=== PATIENT | male | born 1975 | race Caucasian/White ===

== ENCOUNTER 2017-05-22 22:08 | Emergency (ER) | payer OTHER ==
[2017-05-22 22:18] VITALS: BP 126/85; PULSE 94; TEMP 97.8; BMI 28.7
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
== END 2017-05-23 01:00 | disposition home or self-care (01) ==
LOC: JER 22:08
DX: M51.27 Other intervertebral disc displacement, lumbosacral region (principal)
CPT/HCPCS: 70450-TC; 72131-TC; 99281-25; 99283-25

== ENCOUNTER 2017-06-05 23:15 | Observation (INO) | payer OTHER ==
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
[2017-06-06 01:52] LABS: BASO % 0.4 % (0-2.0); EOS % 1.2 % (0-4.5); HEMATOCRIT 52.2 % (35.4-49); HEMOGLOBIN 17.4 GM/dL (11.7-16.9); LYMPH % 10.1 % (8-40); MCHC 33.3 g/dl (32.0-35.9); MEAN CELL VOLUME 90.2 fl (80-96); MEAN PLT VOLUME 8.4 fl (7.5-11.1); MONO % 7.8 % (3.8-10.2); NEUT % 80.5 % (42.8-82.8); PLATELET COUNT 339 K/MM3 (134-434); RBC 5.79 M/mm3 (4.00-5.60); RDW 13.7 % (11.9-15.9); WHITE BLOOD COUNT 14.4 K/mm3 (4.0-10.0)
[2017-06-06] MEDS ORDERED: ONDANSETRON 4 MG/2 ML VIAL IVPUSH STA ×2 (02:07→03:52)
[2017-06-06] MEDS ORDERED: morphine CARPU-JECT 2 MG/1 ML DISP.SYRIN IVPUSH ONE ×2 (02:07→03:52)
[2017-06-06] MEDS ORDERED: ONDANSETRON 4 MG/2 ML VIAL ONE ×2 (02:10→04:00)
[2017-06-06] MEDS ORDERED: morphine SULFATE 4 MG/ML VIAL ONE (02:10)
[2017-06-06 02:13] LABS: INR 0.94 (0.82-1.09); PROTHROMBIN TIME (PATIENT) 10.6 SEC (9.98-11.88)
[2017-06-06 02:29] LABS: ANION GAP 4 (8-16); BILIRUBIN,TOTAL 0.5 mg/dL (0.2-1.0); BLOOD UREA NITROGEN 14 mg/dL (7-18); CALCIUM 8.1 mg/dL (8.5-10.1); CHLORIDE 104 mmol/L (98-107); CO2 32 mmol/L (21-32); CREATININE 1.3 mg/dL (0.7-1.3); GLUCOSE,RANDOM 97 mg/dL (74-106); SGPT/ALT 50 U/L (12-78); SODIUM 140 mmol/L (136-145); TOT PROT 8.3 g/dl (6.4-8.2)
[2017-06-06 02:32] LABS: ALK PHOS 76 U/L (45-117)
[2017-06-06 02:36] LABS: MAGNESIUM 1.9 mg/dL (1.8-2.4); POTASSIUM 4.6 mmol/L (3.5-5.1); SGOT/AST 42 U/L (15-37)
[2017-06-06] MEDS ORDERED: SODIUM CHLORIDE 1,000 ML IV STA (02:52)
[2017-06-06 03:21] LABS: URINE APPEARANCE CLEAR; URINE BILIRUBIN NEGATIVE (<2.0 mg/dL); URINE BLOOD NEGATIVE (NEGATIVE); URINE COLOR DKYELLOW; URINE GLUCOSE (UA) NEGATIVE (NEGATIVE); URINE KETONE NEGATIVE (NEGATIVE); URINE LEUK ESTERASE NEGATIVE (NEGATIVE); URINE NITRITE NEGATIVE (NEGATIVE)
[2017-06-06 03:22] LABS: URINE PROTEIN 1+ (NEGATIVE)
[2017-06-06 03:23] LABS: URINE HYALINE CAST 8 /lpf; URINE MUCUS MANY
[2017-06-06 03:53] LABS: METHADONE, UR NEGATIVE ng/ml (CUTOFF=300); PHENCYCLIDINE,URINE NEGATIVE ng/ml (CUTOFF=25); URINE AMPHETAMINES NEGATIVE ng/ml (CUTOFF=500); URINE BARBITURATES NEGATIVE ng/ml (CUTOFF=200); URINE BENZODIAZEPINES POSITIVE ng/ml (CUTOFF=200)
[2017-06-06 03:55] LABS: COCAINE, UR POSITIVE ng/ml (CUTOFF=300); OPIATES, URI POSITIVE ng/ml (CUTOFF=300)
[2017-06-06] MEDS ORDERED: MORPHINE SULFATE 10 MG/1 ML *VIAL ONE (03:59)
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
[2017-06-06] MEDS ORDERED: SODIUM CHLORIDE 1,000 ML IV SCH (06:00)
--- NOTE | 2017-06-06 06:18 | HP ---
CHIEF COMPLAINT: LLE extremity pain, syncope PCP: HISTORY OF PRESENT ILLNESS: 41 y/o M with PMH R varicocele (underwent three repairs: at ages [age]), throat nodules, three crushed vertebrae (dx 2004), unknown chest tumor, numerous athletic shoulder and knee repair surgeries, who presents to the ED c/ o b/l lower extremity pain and syncope over the past six months, worsened over the last three days. As per patient, six months ago, he developed tightness in his hamstrings, which was so severe that he was unable to walk up stairs. At this time, he had loss of sensation in his RLE. He followed up with a neurosurgeon, who recommended MRI, however it was never done. Pt states that ever since this instance, he has continued to have loss of sensation in his RLE and weakness in his LLE. He was seen in [facility] ED approximately two weeks ago with similar complaints, and was dx with bulging discs and sent home with neurosurgical follow up for MRI that had not been completed yet. Pt is returning today c/o worsening sx over the past three days, including severe, tightening LLE pain, numbness in his RUE and RLE, as well as increased sensation of warmth on his R side. During this time, he also endorses swollen ankle and hand joints, somnolence, increased urinary frequency and loss of erection. He also has had a diffuse erythematous, pruritic full-body rash, which is a/w hot flashes. Over the last day, pt has also had 10-12 episodes of NBNB emesis, and syncopal episodes where he is sitting down and "just goes limp " as per his . These last for 2-3 seconds and are not a/w urinary or bowel incontinence, or change in eye movement. However, despite his hx, states that he has been able to lift weights. Pt denies recent trauma, accidents, WILSON, fever , chills, SOB, chest pain or pressure, or changes in bowel function. He has had no recent travel hx, exposures, and denies recent drug ingestions. ER course was notable for: (1) Tachy 130HR (2) Leukocytosis 14.4 (3) Benadryl 25mg x 1 (4) Morphine 8mg IVP, 6mg IVP (5) Zofran 4mg x 2 Recent Travel: none PAST MEDICAL HISTORY: as above PAST SURGICAL HISTORY: as above, had had ?resection of throat nodules, R knee arthroscopy, two elbow surgeries, 2 shoulder repairs - one for a bone spur Social History: worked as a research professional for a long time. Smoking: since 20's has smoked socially "a few cigarettes" Alcohol: social drinker Drugs: denies current use. states he used cocaine in college Family History: mother- breast CA, father- prostate CA Allergies Baclofen- angioedema Penicillin- dx in childhood, does not know rxn it causes HOME MEDICATIONS: -States that he only takes unisom to help him sleep at night. No other meds REVIEW OF SYSTEMS CONSTITUTIONAL: +loss of appetite Absent: fever, chills, diaphoresis, generalized weakness, malaise, loss of appetite, weight change HEENT: Absent: rhinorrhea, nasal congestion, throat pain, throat swelling, difficulty swallowing, mouth swelling, ear pain, eye pain, visual changes CARDIOVASCULAR: Absent: chest pain, syncope, palpitations, irregular heart rate, lightheadedness , peripheral edema RESPIRATORY: Absent: cough, shortness of breath, dyspnea with exertion, orthopnea, wheezing, stridor, hemoptysis GASTROINTESTINAL: Absent: abdominal pain, abdominal distension, nausea, vomiting, diarrhea, constipation, melena, hematochezia GENITOURINARY: Absent: dysuria, frequency, urgency, hesitancy, hematuria, flank pain, genital pain MUSCULOSKELETAL: +LLE weakness, pain, +RLE increased temp, loss of sensation Absent: myalgia, arthralgia, joint swelling, back pain, neck pain SKIN: +diffuse blanching maculopapular rash/"flushing" Absent: rash, itching, pallor HEMATOLOGIC/IMMUNOLOGIC: Absent: easy bleeding, easy bruising, lymphadenopathy, frequent infections ENDOCRINE: Absent: unexplained weight gain, unexplained weight loss, heat intolerance, cold intolerance NEUROLOGIC: + Absent: headache, focal weakness or paresthesias, dizziness, unsteady gait, seizure, mental status changes, bladder or bowel incontinence PSYCHIATRIC: Absent: anxiety, depression, suicidal or homicidal ideation, hallucinations. PHYSICAL EXAMINATION Vital Signs - 24 hr 06/06/17 06/06/17 00:58 05:24 Temperature 97.7 F Pulse Rate 130 H Pulse Rate [ 104 H Apical] Respiratory 14 18 Rate Blood Pressure 127/104 Blood Pressure 131/82 [Left Arm] O2 Sat by Pulse 95 99 Oximetry (%) GENERAL: Extremely anxious, speaking fast. Awake, alert, and fully oriented, in no acute distress. Intermittently coughing HEAD: Normal with no signs of trauma. + flushing EYES: Pupils equal, round and reactive to light, extraocular movements intact, sclera anicteric, conjunctiva clear. No lid lag. EARS, NOSE, THROAT: Ears normal, nares patent, oropharynx clear without exudates. Dry mucous membranes NECK: Normal range of motion, supple LUNGS: Breath sounds equal, clear to auscultation bilaterally. No wheezes, and no crackles. No accessory muscle use. CHEST: +flushing/maculopapular blanchable rash HEART: tachycardic rate and rhythm, normal S1 and S2 without murmur, rub or gallop. ABDOMEN: Soft, nontender, not distended, normoactive bowel sounds, no guarding, no rebound, no masses. No hepatomegaly or splenomegaly. MUSCULOSKELETAL: Normal range of motion at all joints. No bony deformities or tenderness. +Mild TTP lumbar spine ~L3/L4 UPPER EXTREMITIES: 2+ radial pulses, warm, well-perfused. No cyanosis. No clubbing. No peripheral edema. LOWER EXTREMITIES: 2+ lower extremity pulses, warm, well-perfused. No calf tenderness. No peripheral edema. NEUROLOGICAL: Cranial nerves II-XII intact. Normal speech. DTRs 2+ intact - bicep, tricep, patellar. Motor strength 4/5 in upper and lower extremities. Mild loss of sensation RUE, RLE. PSYCHIATRIC: Cooperative. Anxious, pressured speech SKIN: +flushing/maculopapular blanchable rash, dry Laboratory Results - last 24 hr 06/06/17 06/06/17 06/06/17 01:30 01:30 01:30 WBC 14.4 H RBC 5.79 H Hgb 17.4 H Hct 52.2 H MCV 90.2 MCH 30.0 MCHC 33.3 RDW 13.7 Plt Count 339 MPV 8.4 Neutrophils % 80.5 Lymphocytes % 10.1 Monocytes % 7.8 Eosinophils % 1.2 Basophils % 0.4 PT with INR INR D-Dimer 569 H Sodium 140 Potassium 4.6 Chloride 104 Carbon Dioxide 32 Anion Gap 4 L BUN 14 Creatinine 1.3 Creat Clearance w eGFR > 60 Random Glucose 97 Lactic Acid Calcium 8.1 L Magnesium 1.9 Total Bilirubin 0.5 AST 42 H ALT 50 Alkaline Phosphatase 76 Creatine Kinase 948 H Creatine Kinase Index 1.1 CK-MB (CK-2) 11.348 H Troponin I < 0.02 B-Natriuretic Peptide Total Protein 8.3 H Albumin 4.0 Lipase Ur Leukocyte Esterase 06/06/17 06/06/17 03:11 03:11 WBC TSH Resin T3 Uptake Urine Color Dkyellow Urine Appearance Clear Urine pH 5.0 Ur Specific [place] 1.023 Urine Protein 1+ H Urine Glucose (UA) Negative Urine Ketones Negative Urine Blood Negative Urine Nitrite Negative Urine Bilirubin Negative Urine Urobilinogen 2.0 Ur Leukocyte Esterase Negative Urine WBC (Auto) 1 Urine RBC (Auto) 1 Hyaline Casts 8 Urine Mucus Many Opiates Screen Positive Methadone Screen Negative Barbiturate Screen Negative Phencyclidine Screen Negative Ur Amphetamines Screen Negative MDMA (Ecstasy) Screen Negative Benzodiazepines Screen Positive Cocaine Screen Positive U Marijuana (THC) Screen Negative TESTS -EKG: sinus tachycardia, however NSR -CT Head non-con: WNL, no hemorrhage or infarct -CTA: no PE, no dissection, without effusion or fx -CTA AP: prior gonadal vein or arterial embolization -CTA lower ext: nonspecific b/l gluteal SQ edema ASSESSMENT/PLAN: 41 y/o M with PMH R varicocele (underwent three repairs: at ages [age]), throat nodules, three crushed vertebrae (dx 2004), unknown chest tumor, numerous athletic shoulder and knee repair surgeries, who presents to the ED c/ o b/l lower extremity pain and syncope over the past six months, worsened over the last three days. Pt admitted to tele-obs for lower extremity weakness, polysubstance withdrawal. #LLE weakness, RLE numbness r/o spinal lesion, cord compression, herniated disc -Received morphine 8 mg IVP, 2mg IVP in ED -Without complaint of pain during exam -F/u MRI w/o contrast- cervical, thoracic, lumbar regions -F/u B12, folate level, Mg -Elevated CK level likely 2/2 weight lifting -TSH WNL -Neuro consult- Dr. Campos -Neurosurg consult- Dr. Roy #Syncopal episodes, possible absence seizures -Neuro consult - Dr. Campos -[facility] without abnormalities -Will do stroke work up in case- -F/u Carotid doppler sono -F/u ECHO #Polysubstance withdrawal -Pt not admitting to recent drug use -May explain pt's anxiety, tachycardia -Telemetry monitoring -However recent utox+ for cocaine -Recommend detox, withdrawal protocol -Would reassess #Nausea, vomiting possibly 2/2 gastroenteritis -IVF for hydration -NPO for now -Zofran 4mg q6h PRN #Diffuse maculopapular rash with pruritis -May be allergic rxn, continue to monitor for changes -F/u RPR -Benadryl as needed for sx #Increased H/H likely 2/2 dehydration -Will hydrate with IV NS 125 cc/hr #Hypocalcemia -Corrected Ca 8.1 -Will correct with Ca gluconate 1g IV -Continue to follow level #F/E/N IV NS 125 cc/hr Serial lytes NPO for now - will watch pt for N/V, and if additional tests needed #PPX DVT: SCD's #Dispo tele -obs Visit type - Emergency Visit Emergency Visit: Yes ED Registration Date: 06/06/17 Care time: The patient presented to the Emergency Department on the above date and was hospitalized for further evaluation of their emergent condition. - New Patient This patient is new to me today: Yes Date on this admission: 06/06/17 - Critical Care Critical Care patient: No Hospitalist Screening - Colonoscopy Questionnaire Colonoscopy Questionnaire: Colonoscopy Questionnaire - Patient: 50 - 75 years old and never had a screening colonoscopy: Unknown History of colon or rectal polyps, or CA: Unknown History of IBD, Crohn's disease or UC: Unknown History of abdominal radiation therapy as a child: Unknown - Relative: 1 with colon or rectal CA, or polyps at age 60 or younger: Unknown Colon or rectal CA diagnosed at age 45 or younger: Unknown Multiple relatives with colon or rectal CA: Unknown - Outcome: Screening Result: Negative Screen
[2017-06-06] MEDS ORDERED: ONDANSETRON 4 MG/2 ML VIAL IVPUSH PRN (06:42)
[2017-06-06] MEDS ORDERED: CALCIUM GLUCONATE 10% - 1,000 MG/10 ML VIAL IVPUSH ONE (06:45)
[2017-06-06 08:30] VITALS: TEMP 98.1
[2017-06-06 08:46] LABS: MAGNESIUM 2.2 mg/dL (1.8-2.4)
[2017-06-06 09:50] LABS: BASO % 1.2 % (0-2.0); EOS % 2.9 % (0-4.5); HEMATOCRIT 47.7 % (35.4-49); HEMOGLOBIN 15.8 GM/dL (11.7-16.9); MCH 30.3 pg (25.7-33.7); MCHC 33.2 g/dl (32.0-35.9); MEAN CELL VOLUME 91.2 fl (80-96); MEAN PLT VOLUME 8.4 fl (7.5-11.1); MONO % 12.6 % (3.8-10.2); NEUT % 64.3 % (42.8-82.8); PLATELET COUNT 309 K/MM3 (134-434); RBC 5.23 M/mm3 (4.00-5.60); RDW 13.8 % (11.9-15.9); WHITE BLOOD COUNT 9.9 K/mm3 (4.0-10.0)
[2017-06-06 12:12] LABS: ANION GAP 4 (8-16); BLOOD UREA NITROGEN 13 mg/dL (7-18); CALCIUM 8.1 mg/dL (8.5-10.1); CHLORIDE 105 mmol/L (98-107); CO2 32 mmol/L (21-32); CREATININE 1.3 mg/dL (0.7-1.3); GLUCOSE,RANDOM 65 mg/dL (74-106); POTASSIUM 4.4 mmol/L (3.5-5.1); SODIUM 141 mmol/L (136-145)
--- NOTE | 2017-06-06 13:21 | EKG ---
Test Reason : Blood Pressure : / mmHG Vent. Rate : 112 BPM Atrial Rate : 112 BPM P-R Int : 134 ms QRS Dur : 098 ms QT Int : 310 ms P-R-T Axes : 053 037 025 degrees QTc Int : 423 ms SINUS TACHYCARDIA OTHERWISE NORMAL ECG NO PREVIOUS ECGS AVAILABLE Confirmed by ARIE AUGUSTE MD ([id number]) on 06/06/2017 1:20:32 PM Referred By: Confirmed By:ARIE AUGUSTE MD
[2017-06-06 13:39] VITALS: BMI 28.8
[2017-06-06 13:58] VITALS: BP 134/76; PULSE 96
[2017-06-06] MEDS ORDERED: KETOROLAC TROMETHAMINE 10 MG TABLET PO PRN (14:01)
[2017-06-06] MEDS ORDERED: ACETAMINOPHEN 325 MG TABLET (FP) PO PRN ×2 (14:01→14:33)
[2017-06-06] MEDS ORDERED: KETOROLAC TROMETHAMINE 30 MG/1 ML VIAL IVPUSH PRN (14:44)
--- NOTE | 2017-06-06 15:14 | PN ---
Physical Exam: SUBJECTIVE: Patient seen and examined OBJECTIVE: Vital Signs Period Temp Pulse Resp BP Sys/Abdalla Pulse Ox Last 24 Hr 97.7 F-98.1 F 90-130 12-18 127-134/76-104 95-100 GENERAL: The patient is awake, alert, and fully oriented, in no acute distress. HEAD: Normal with no signs of trauma. EYES: PERRL, extraocular movements intact, sclera anicteric, conjunctiva clear. No ptosis. NECK: Trachea midline, full range of motion, supple. LUNGS: Breath sounds equal, clear to auscultation bilaterally, no wheezes, no crackles, no accessory muscle use. HEART: Regular rate and rhythm, S1, S2 without murmur, rub or gallop. ABDOMEN: Soft, nontender, nondistended, normoactive bowel sounds, no guarding, no rebound, no hepatosplenomegaly, no masses. EXTREMITIES: 2+ pulses, warm, well-perfused, no edema. NEUROLOGICAL: Cranial nerves II through X grossly intact. Normal speech, gait not observed. Strength 5/5 in all 4 extremities. Sensation intact in all dermatomes on the left. Numbness with only pressure felt on the right. PSYCH: Normal mood, normal affect. SKIN: Warm, dry. There is flushing of the face and upper chest area. There is a maculopapular rash over the upper chest area. The reddening of the sin blanches , but the maculopapular regions do not. Laboratory Results - last 24 hr 06/06/17 06/06/17 06/06/17 01:30 01:30 01:30 WBC 14.4 H RBC 5.79 H Hgb 17.4 H Hct 52.2 H MCV 90.2 MCH 30.0 MCHC 33.3 RDW 13.7 Plt Count 339 MPV 8.4 Neutrophils % 80.5 Lymphocytes % 10.1 Monocytes % 7.8 Eosinophils % 1.2 Basophils % 0.4 PT with INR INR D-Dimer 569 H Sodium 140 Potassium 4.6 Chloride 104 Carbon Dioxide 32 Anion Gap 4 L BUN 14 Creatinine 1.3 Creat Clearance w eGFR > 60 Random Glucose 97 Lactic Acid Calcium 8.1 L Magnesium 1.9 Total Bilirubin 0.5 AST 42 H ALT 50 Alkaline Phosphatase 76 Creatine Kinase 948 H Creatine Kinase Index 1.1 CK-MB (CK-2) 11.348 H Troponin I < 0.02 B-Natriuretic Peptide Total Protein 8.3 H Albumin 4.0 Lipase Vitamin B12 Serum Folate TSH Resin T3 Uptake Urine Color Urine Appearance Urine pH Ur Specific [place] Urine Protein Urine Glucose (UA) Urine Ketones Urine Blood Urine Nitrite Urine Bilirubin Urine Urobilinogen Ur Leukocyte Esterase Urine WBC (Auto) Urine RBC (Auto) Hyaline Casts Urine Mucus Opiates Screen Methadone Screen Barbiturate Screen Phencyclidine Screen Ur Amphetamines Screen MDMA (Ecstasy) Screen Benzodiazepines Screen Cocaine Screen U Marijuana (THC) Screen 06/06/17 06/06/17 06/06/17 01:30 01:30 01:30 WBC RBC Hgb Hct MCV MCH MCHC RDW Plt Count MPV Neutrophils % Lymphocytes % Monocytes % Eosinophils % Basophils % PT with INR 10.60 INR 0.94 D-Dimer Sodium Potassium Chloride Carbon Dioxide Anion Gap BUN Creatinine Creat Clearance w eGFR Random Glucose Lactic Acid 1.1 Calcium Magnesium Total Bilirubin AST ALT Alkaline Phosphatase Creatine Kinase Creatine Kinase Index CK-MB (CK-2) Troponin I B-Natriuretic Peptide Total Protein Albumin Lipase 91 Vitamin B12 Serum Folate TSH Resin T3 Uptake Urine Color Urine Appearance Urine pH Ur Specific [place] Urine Protein Urine Glucose (UA) Urine Ketones Urine Blood Urine Nitrite Urine Bilirubin Urine Urobilinogen Ur Leukocyte Esterase Urine WBC (Auto) Urine RBC (Auto) Hyaline Casts Urine Mucus Opiates Screen Methadone Screen Barbiturate Screen Phencyclidine Screen Ur Amphetamines Screen MDMA (Ecstasy) Screen Benzodiazepines Screen Cocaine Screen U Marijuana (THC) Screen 06/06/17 06/06/17 06/06/17 01:30 02:30 02:30 WBC RBC Hgb Hct MCV MCH MCHC RDW Plt Count MPV Neutrophils % Lymphocytes % Monocytes % Eosinophils % Basophils % PT with INR INR D-Dimer Sodium Potassium Chloride Carbon Dioxide Anion Gap BUN Creatinine Creat Clearance w eGFR Random Glucose Lactic Acid Calcium Magnesium Total Bilirubin AST ALT Alkaline Phosphatase Creatine Kinase Creatine Kinase Index CK-MB (CK-2) Troponin I B-Natriuretic Peptide 24.07 Total Protein Albumin Lipase Vitamin B12 Serum Folate TSH 2.82 Resin T3 Uptake 33.0 Urine Color Urine Appearance Urine pH Ur Specific [place] Urine Protein Urine Glucose (UA) Urine Ketones Urine Blood Urine Nitrite Urine Bilirubin Urine Urobilinogen Ur Leukocyte Esterase Urine WBC (Auto) Urine RBC (Auto) Hyaline Casts Urine Mucus Opiates Screen Methadone Screen Barbiturate Screen Phencyclidine Screen Ur Amphetamines Screen MDMA (Ecstasy) Screen Benzodiazepines Screen Cocaine Screen U Marijuana (THC) Screen 06/06/17 06/06/17 06/06/17 03:11 03:11 07:59 WBC RBC Hgb Hct MCV MCH MCHC RDW Plt Count MPV Neutrophils % Lymphocytes % Monocytes % Eosinophils % Basophils % PT with INR INR D-Dimer Sodium Potassium Chloride Carbon Dioxide Anion Gap BUN Creatinine Creat Clearance w eGFR Random Glucose Lactic Acid Calcium Magnesium 2.2 Total Bilirubin AST ALT Alkaline Phosphatase Creatine Kinase Creatine Kinase Index CK-MB (CK-2) Troponin I < 0.02 B-Natriuretic Peptide Total Protein Albumin Lipase Vitamin B12 850 Serum Folate 12 TSH Resin T3 Uptake Urine Color Dkyellow Urine Appearance Clear Urine pH 5.0 Ur Specific [place] 1.023 Urine Protein 1+ H Urine Glucose (UA) Negative Urine Ketones Negative Urine Blood Negative Urine Nitrite Negative Urine Bilirubin Negative Urine Urobilinogen 2.0 Ur Leukocyte Esterase Negative Urine WBC (Auto) 1 Urine RBC (Auto) 1 Hyaline Casts 8 Urine Mucus Many Opiates Screen Positive Methadone Screen Negative Barbiturate Screen Negative Phencyclidine Screen Negative Ur Amphetamines Screen Negative MDMA (Ecstasy) Screen Negative Benzodiazepines Screen Positive Cocaine Screen Positive U Marijuana (THC) Screen Negative 06/06/17 06/06/17 06/06/17 07:59 07:59 11:45 WBC 9.9 D RBC 5.23 Hgb 15.8 Hct 47.7 MCV 91.2 MCH 30.3 MCHC 33.2 RDW 13.8 Plt Count 309 MPV 8.4 Neutrophils % 64.3 D Lymphocytes % 19.0 D Monocytes % 12.6 H Eosinophils % 2.9 D Basophils % 1.2 PT with INR INR D-Dimer Sodium 141 Potassium 4.4 Chloride 105 Carbon Dioxide 32 Anion Gap 4 L BUN 13 Creatinine 1.3 Creat Clearance w eGFR Random Glucose 65 L D Lactic Acid Calcium 8.1 L Magnesium Total Bilirubin AST ALT Alkaline Phosphatase Creatine Kinase 1632 H Creatine Kinase Index 1.0 CK-MB (CK-2) 16.909 H Troponin I < 0.02 B-Natriuretic Peptide Total Protein Albumin Lipase Vitamin B12 Serum Folate TSH Resin T3 Uptake Urine Color Urine Appearance Urine pH Ur Specific [place] Urine Protein Urine Glucose (UA) Urine Ketones Urine Blood Urine Nitrite Urine Bilirubin Urine Urobilinogen Ur Leukocyte Esterase Urine WBC (Auto) Urine RBC (Auto) Hyaline Casts Urine Mucus Opiates Screen Methadone Screen Barbiturate Screen Phencyclidine Screen Ur Amphetamines Screen MDMA (Ecstasy) Screen Benzodiazepines Screen Cocaine Screen U Marijuana (THC) Screen Active Medications Generic Name Dose Route Start Last Admin Trade Name Freq PRN Reason Stop Dose Admin Acetaminophen 650 mg 06/06/17 14:33 Tylenol - PO Q6H PRN PAIN LEVEL 1-5 Sodium Chloride 1,000 mls @ 125 mls/hr 06/06/17 06:00 06/06/17 06:43 Normal Saline - IV 125 mls/hr ASDIR DANNIE Administration Ketorolac Tromethamine 30 mg 06/06/17 14:44 Toradol Injection - IVPUSH 06/11/17 14:43 Q8H PRN PAIN LEVEL 6-10 Ondansetron HCl 4 mg 06/06/17 06:42 Zofran Injection IVPUSH Q6H PRN NAUSEA AND/OR VOMITING ASSESSMENT/PLAN: The patient is a 41 y/o M with PMH throat nodules, three crushed vertebrae (dx 2004), unknown chest tumor, numerous athletic shoulder and knee repair surgeries admitted to tele-obs for workup of lower extremity weakness, numbness and pain. #LLE weakness, Right sided numbness r/o spinal lesion, cord compression, herniated disc -Received morphine 8 mg IVP, 2mg IVP in ED -strength 5/5 in all extremities -F/u B12, folate level, Mg -Elevated CK level likely 2/2 weight lifting -TSH WNL -Neuro consult -neurosurg consult #Syncopal episodes, possible absence seizures -Neuro consult - Dr. Campos -CT Head WNL -F/u Carotid doppler sono -F/u ECHO #possible Polysubstance withdrawal -patient continues to deny recent drug use -as per patient, #Diffuse maculopapular rash with pruritis -possibly allergic, though refractory to benadryl -F/u RPR #Polycythemia likely 2/2 dehydration -NS @ 125 #Hypocalcemia -Corrected Ca 8.1 -Will correct with Ca gluconate 1g IV -Rpt Ca unchanged; will rpt tomorrow. #Nausea, vomiting possibly 2/2 gastroenteritis- resolved -IVF for hydration -Zofran 4mg q6h PRN #F/E/N -NS@125 -monitor lytes -regular diet #PPX -SCD's #Dispo -admit to tele-obs
--- NOTE | 2017-06-06 17:28 | PN ---
Teaching Attending Note Name of Resident: Bruce Villanueva ATTENDING PHYSICIAN STATEMENT I saw and evaluated the patient. I reviewed the resident's note and discussed the case with the resident. I agree with the resident's findings and plan as documented. SUBJECTIVE: patient complains of leg weakness. OBJECTIVE: Vital Signs Period Temp Pulse Resp BP Sys/Abdalla Pulse Ox Last 24 Hr 97.7 F-98.1 F 90-130 12-18 127-134/76-104 95-100 HEART: S1S2, RRR LUNGS: Clear ABDOMEN: Soft, non-tender, non-distended, normal BS EXTREMITIES: No edema Laboratory Results - last 24 hr 06/06/17 06/06/17 06/06/17 01:30 01:30 01:30 WBC 14.4 H RBC 5.79 H Hgb 17.4 H Hct 52.2 H MCV 90.2 MCH 30.0 MCHC 33.3 RDW 13.7 Plt Count 339 MPV 8.4 Neutrophils % 80.5 Lymphocytes % 10.1 Monocytes % 7.8 Eosinophils % 1.2 Basophils % 0.4 PT with INR INR D-Dimer 569 H Sodium 140 Potassium 4.6 Chloride 104 Carbon Dioxide 32 Anion Gap 4 L BUN 14 Creatinine 1.3 Creat Clearance w eGFR > 60 Random Glucose 97 Lactic Acid Calcium 8.1 L Magnesium 1.9 Total Bilirubin 0.5 AST 42 H ALT 50 Alkaline Phosphatase 76 Creatine Kinase 948 H Creatine Kinase Index 1.1 CK-MB (CK-2) 11.348 H Troponin I < 0.02 B-Natriuretic Peptide Total Protein 8.3 H Albumin 4.0 Lipase Vitamin B12 Serum Folate TSH Resin T3 Uptake Urine Color Urine Appearance Urine pH Ur Specific [place] Urine Protein Urine Glucose (UA) Urine Ketones Urine Blood Urine Nitrite Urine Bilirubin Urine Urobilinogen Ur Leukocyte Esterase Urine WBC (Auto) Urine RBC (Auto) Hyaline Casts Urine Mucus Opiates Screen Methadone Screen Barbiturate Screen Phencyclidine Screen Ur Amphetamines Screen MDMA (Ecstasy) Screen Benzodiazepines Screen Cocaine Screen U Marijuana (THC) Screen 06/06/17 06/06/17 06/06/17 01:30 01:30 01:30 WBC RBC Hgb Hct MCV MCH MCHC RDW Plt Count MPV Neutrophils % Lymphocytes % Monocytes % Eosinophils % Basophils % PT with INR 10.60 INR 0.94 D-Dimer Sodium Potassium Chloride Carbon Dioxide Anion Gap BUN Creatinine Creat Clearance w eGFR Random Glucose Lactic Acid 1.1 Calcium Magnesium Total Bilirubin AST ALT Alkaline Phosphatase Creatine Kinase Creatine Kinase Index CK-MB (CK-2) Troponin I B-Natriuretic Peptide Total Protein Albumin Lipase 91 Vitamin B12 Serum Folate TSH Resin T3 Uptake Urine Color Urine Appearance Urine pH Ur Specific [place] Urine Protein Urine Glucose (UA) Urine Ketones Urine Blood Urine Nitrite Urine Bilirubin Urine Urobilinogen Ur Leukocyte Esterase Urine WBC (Auto) Urine RBC (Auto) Hyaline Casts Urine Mucus Opiates Screen Methadone Screen Barbiturate Screen Phencyclidine Screen Ur Amphetamines Screen MDMA (Ecstasy) Screen Benzodiazepines Screen Cocaine Screen U Marijuana (THC) Screen 06/06/17 06/06/17 06/06/17 01:30 02:30 02:30 WBC RBC Hgb Hct MCV MCH MCHC RDW Plt Count MPV Neutrophils % Lymphocytes % Monocytes % Eosinophils % Basophils % PT with INR INR D-Dimer Sodium Potassium Chloride Carbon Dioxide Anion Gap BUN Creatinine Creat Clearance w eGFR Random Glucose Lactic Acid Calcium Magnesium Total Bilirubin AST ALT Alkaline Phosphatase Creatine Kinase Creatine Kinase Index CK-MB (CK-2) Troponin I B-Natriuretic Peptide 24.07 Total Protein Albumin Lipase Vitamin B12 Serum Folate TSH 2.82 Resin T3 Uptake 33.0 Urine Color Urine Appearance Urine pH Ur Specific [place] Urine Protein Urine Glucose (UA) Urine Ketones Urine Blood Urine Nitrite Urine Bilirubin Urine Urobilinogen Ur Leukocyte Esterase Urine WBC (Auto) Urine RBC (Auto) Hyaline Casts Urine Mucus Opiates Screen Methadone Screen Barbiturate Screen Phencyclidine Screen Ur Amphetamines Screen MDMA (Ecstasy) Screen Benzodiazepines Screen Cocaine Screen U Marijuana (THC) Screen 06/06/17 06/06/17 06/06/17 03:11 03:11 07:59 WBC RBC Hgb Hct MCV MCH MCHC RDW Plt Count MPV Neutrophils % Lymphocytes % Monocytes % Eosinophils % Basophils % PT with INR INR D-Dimer Sodium Potassium Chloride Carbon Dioxide Anion Gap BUN Creatinine Creat Clearance w eGFR Random Glucose Lactic Acid Calcium Magnesium 2.2 Total Bilirubin AST ALT Alkaline Phosphatase Creatine Kinase Creatine Kinase Index CK-MB (CK-2) Troponin I < 0.02 B-Natriuretic Peptide Total Protein Albumin Lipase Vitamin B12 850 Serum Folate 12 TSH Resin T3 Uptake Urine Color Dkyellow Urine Appearance Clear Urine pH 5.0 Ur Specific [place] 1.023 Urine Protein 1+ H Urine Glucose (UA) Negative Urine Ketones Negative Urine Blood Negative Urine Nitrite Negative Urine Bilirubin Negative Urine Urobilinogen 2.0 Ur Leukocyte Esterase Negative Urine WBC (Auto) 1 Urine RBC (Auto) 1 Hyaline Casts 8 Urine Mucus Many Opiates Screen Positive Methadone Screen Negative Barbiturate Screen Negative Phencyclidine Screen Negative Ur Amphetamines Screen Negative MDMA (Ecstasy) Screen Negative Benzodiazepines Screen Positive Cocaine Screen Positive U Marijuana (THC) Screen Negative 06/06/17 06/06/17 06/06/17 07:59 07:59 11:45 WBC 9.9 D RBC 5.23 Hgb 15.8 Hct 47.7 MCV 91.2 MCH 30.3 MCHC 33.2 RDW 13.8 Plt Count 309 MPV 8.4 Neutrophils % 64.3 D Lymphocytes % 19.0 D Monocytes % 12.6 H Eosinophils % 2.9 D Basophils % 1.2 PT with INR INR D-Dimer Sodium 141 Potassium 4.4 Chloride 105 Carbon Dioxide 32 Anion Gap 4 L BUN 13 Creatinine 1.3 Creat Clearance w eGFR Random Glucose 65 L D Lactic Acid Calcium 8.1 L Magnesium Total Bilirubin AST ALT Alkaline Phosphatase Creatine Kinase 1632 H Creatine Kinase Index 1.0 CK-MB (CK-2) 16.909 H Troponin I < 0.02 B-Natriuretic Peptide Total Protein Albumin Lipase Vitamin B12 Serum Folate TSH Resin T3 Uptake Urine Color Urine Appearance Urine pH Ur Specific [place] Urine Protein Urine Glucose (UA) Urine Ketones Urine Blood Urine Nitrite Urine Bilirubin Urine Urobilinogen Ur Leukocyte Esterase Urine WBC (Auto) Urine RBC (Auto) Hyaline Casts Urine Mucus Opiates Screen Methadone Screen Barbiturate Screen Phencyclidine Screen Ur Amphetamines Screen MDMA (Ecstasy) Screen Benzodiazepines Screen Cocaine Screen U Marijuana (THC) Screen Current Medications Generic Name Dose Route Start Last Admin Trade Name Freq PRN Reason Stop Dose Admin Acetaminophen 650 mg 06/06/17 14:33 Tylenol - PO Q6H PRN PAIN LEVEL 1-5 Sodium Chloride 1,000 mls @ 125 mls/hr 06/06/17 06:00 06/06/17 06:43 Normal Saline - IV 125 mls/hr ASDIR DANNIE Administration Ketorolac Tromethamine 30 mg 06/06/17 14:44 06/06/17 15:18 Toradol Injection - IVPUSH 06/11/17 14:43 30 mg Q8H PRN Administration PAIN LEVEL 6-10 Ondansetron HCl 4 mg 04/04/18 06:42 Zofran Injection IVPUSH Q6H PRN NAUSEA AND/OR VOMITING ASSESSMENT AND PLAN: This is a 41 year old man with a history of varicocele, throat nodules, vertebral fractures, chest tumor, who presented to the ED with bilateral leg pain and syncope. 1. Bilateral leg pain, left leg weakness, right leg numbness - MRI of cervical, thoracic, lumbar spine ordered - B12, folate, TSH normal - Patient reports history of vertebral fractures - not seen on CT 05/22 which showed multilevel degenerative disc disease with central canal stenosis - Neurology, neurosurgery consults 2. Syncope - Carotid dopplers, echocardiogram ordered 3. Polysubstance abuse - Denies recent drug use - urine drug screen positive for opiates, benzodiazepines, cocaine 4. Rhabdomyolysis - Continue IV fluid - Monitor CK 5. Hypocalcemia - Continue to supplement calcium 6. Maculopapular rash - RPR negative
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
== END 2017-06-06 17:32 | disposition left against medical advice (07) ==
LOC: JER 23:15 → JERBED 06-06 04:11 → UNDOADMOB 06-06 04:11 → JERBED 06-06 04:11 → INTOOBSV 06-06 04:11 → UNDOADMIN 06-06 04:18 → JERBED 06-06 04:18 → J4W 06-06 07:31
PROVIDERS: ADMIT Internal Medicine; ATTEND Internal Medicine
PROC: 3E033NZ Introduction of Analgesics, Hypnotics, Sedatives into Peripheral Vein, Percutaneous Approach (ICD-10-PCS; principal; 2017-06-06)
PROC: 3E0333Z Introduction of Anti-inflammatory into Peripheral Vein, Percutaneous Approach (ICD-10-PCS; 2017-06-06)
PROC: 3E033GC Introduction of Other Therapeutic Substance into Peripheral Vein, Percutaneous Approach (ICD-10-PCS; 2017-06-06)
PROC: 3E0337Z Introduction of Electrolytic and Water Balance Substance into Peripheral Vein, Percutaneous Approach (ICD-10-PCS; 2017-06-06)
DX: M62.81 Muscle weakness (generalized) (principal); R20.0 Anesthesia of skin; F19.10 Other psychoactive substance abuse, uncomplicated; R55 Syncope and collapse; M51.26 Other intervertebral disc displacement, lumbar region; M54.5 Low back pain; R00.0 Tachycardia, unspecified; R11.2 Nausea with vomiting, unspecified; R21 Rash and other nonspecific skin eruption; L29.9 Pruritus, unspecified; L27.0 Generalized skin eruption due to drugs and medicaments taken internally; E83.51 Hypocalcemia; R71.8 Other abnormality of red blood cells; M62.82 Rhabdomyolysis
CPT/HCPCS: 36415; 70450-TC; 71045-TC-FY; 71275-TC; 75635-TC; 80048; 80053; 80307; 81003; 81015; 82533; 82550; 82553; 82607; 82746; 83605; 83690; 83735; 83880; 84436; 84443; 84479; 84484; 85025; 85379; 85610; 86593; 87040; 87086; 93005; 93010; 93306-TC; 93880-TC; 93970-TC; 96361; 96374; 96375; 96376; 99284-25; G0378; J7030

== ENCOUNTER 2017-07-30 12:12 | Inpatient (IN) | payer OTHER ==
[2017-07-30 13:18] VITALS: BMI 26.4
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
[2017-07-30] MEDS ORDERED: MAG HYDROX/AL HYDROX/SIMETH 30 ML UNIT-DOSE CUP PO PRN (18:08)
[2017-07-30] MEDS ORDERED: MAGNESIUM HYDROX 2400MG/30ML ORAL SUSPENSION 30 ML CUP PO PRN (18:08)
[2017-07-30] MEDS ORDERED: NICOTINE POLACRILEX 2 MG GUM BC PRN (18:08)
[2017-07-30] MEDS ORDERED: IBUPROFEN 400 MG TABLET (FP) PO PRN (18:08)
[2017-07-30] MEDS ORDERED: METHADONE HCL 10 MG TABLET (FOR DETOX USE ONLY) PO ONE ×2 (18:08→23:00)
[2017-07-30] MEDS ORDERED: MAGNESIUM CITRATE 300 ML BOTTLE PO PRN (18:08)
[2017-07-30] MEDS ORDERED: ACETAMINOPHEN 325 MG TABLET (FP) PO PRN (18:08)
[2017-07-30] MEDS ORDERED: P-EPHED 60MG/TRIPROLIDI 2.5MG TABLET PO PRN (18:08)
[2017-07-30] MEDS ORDERED: MENTHOL/PHENOL 1 EACH UD MM PRN (18:08)
[2017-07-30] MEDS ORDERED: LOPERAMIDE HCL 2 MG CAPSULE PO PRN (18:08)
[2017-07-30] MEDS ORDERED: guaiFENesin/D-METHORPHAN HB 10 ML UNIT-DOSE CUPS PO PRN (18:08)
[2017-07-30] MEDS: diazePAM 5 MG TABLET PO PRN ×2 (19:54→22:30)
[2017-07-30] MEDS ORDERED: MELATONIN 5 MG TABLETS PO PRN (22:00)
[2017-07-30] MEDS: THIAMINE HCL 100 MG TABLET (FP) PO SCH (22:30)
[2017-07-30] MEDS: BACITRACIN 0.9 GM PACKET TP SCH (22:30)
[2017-07-30] MEDS: CYCLOBENZAPRINE HCL 5 MG TABLET PO SCH (22:30)
[2017-07-30 22:45] LABS: URINE COLOR AMBER
[2017-07-30 22:46] LABS: URINE APPEARANCE SL CLOUDY; URINE BILIRUBIN NEGATIVE (<2.0 mg/dL); URINE GLUCOSE (UA) NEGATIVE (NEGATIVE); URINE KETONE NEGATIVE (NEGATIVE); URINE LEUK ESTERASE NEGATIVE (NEGATIVE); URINE NITRITE NEGATIVE (NEGATIVE); URINE PROTEIN 1+ (NEGATIVE)
[2017-07-30 22:51] LABS: EPI CELLS <1 /HPF (FEW)
[2017-07-30 22:52] LABS: URINE CASTS 20 /hpf; URINE MUCUS MANY
[2017-07-31] MEDS: CYCLOBENZAPRINE HCL 5 MG TABLET PO SCH ×3 (06:10→22:11)
[2017-07-31] MEDS: diazePAM 5 MG TABLET PO PRN ×3 (06:10→22:11)
[2017-07-31 09:55] LABS: HEMATOCRIT 44.4 % (35.4-49); HEMOGLOBIN 14.8 GM/dL (11.7-16.9); MCH 28.5 pg (25.7-33.7); MCHC 33.3 g/dl (32.0-35.9); MEAN CELL VOLUME 85.7 fl (80-96); MEAN PLT VOLUME 8.5 fl (7.5-11.1); PLATELET COUNT 202 K/MM3 (134-434); RBC 5.18 M/mm3 (4.00-5.60); RDW 13.4 % (11.9-15.9); WHITE BLOOD COUNT 6.7 K/mm3 (4.0-10.0)
[2017-07-31] MEDS ORDERED: METHADONE HCL 10 MG TABLET (FOR DETOX USE ONLY) PO ONE (10:00)
[2017-07-31 10:01] LABS: ANION GAP 5 (8-16); BILIRUBIN,TOTAL 0.9 mg/dL (0.2-1.0); BLOOD UREA NITROGEN 11 mg/dL (7-18); CALCIUM 7.5 mg/dL (8.5-10.1); CHLORIDE 104 mmol/L (98-107); CO2 30 mmol/L (21-32); GLUCOSE,RANDOM 83 mg/dL (74-106); POTASSIUM 3.5 mmol/L (3.5-5.1); SGOT/AST 82 U/L (15-37); SGPT/ALT 279 U/L (12-78); SODIUM 139 mmol/L (136-145)
[2017-07-31 10:02] LABS: ALK PHOS 73 U/L (45-117)
[2017-07-31] MEDS: BACITRACIN 0.9 GM PACKET TP SCH ×2 (10:34→22:11)
[2017-07-31] MEDS: PRENATAL VITAMINS W/ FOLIC ACID TABLET (FP) PO SCH (10:34)
--- NOTE | 2017-07-31 13:25 | EKG ---
Test Reason : Blood Pressure : / mmHG Vent. Rate : 080 BPM Atrial Rate : 080 BPM P-R Int : 144 ms QRS Dur : 098 ms QT Int : 360 ms P-R-T Axes : 070 058 040 degrees QTc Int : 415 ms NORMAL SINUS RHYTHM POSSIBLE LEFT ATRIAL ENLARGEMENT BORDERLINE ECG WHEN COMPARED WITH ECG OF 06-JUN-2017 01:07, NO SIGNIFICANT CHANGE WAS FOUND Confirmed by MD Luci, Adeel ([id number]) on 07/31/2017 1:25:02 PM Referred By: Gallo Fields Confirmed By:Adeel Verma MD
--- NOTE | 2017-07-31 15:48 | PN ---
BHS COWS - Scale Resting Pulse: 0= [place] 80 or Below Sweatin= Chills/Flushing Restless Observation: 1= Difficult to Sit Still Pupil Size: 0= Normal to Room Light Bone or Joint Aches: 2= Severe Diffuse Aches Runny Nose/ Eye Tearin= Nasal Congestion GI Upset > 30mins: 2= Nausea/Diarrhea Tremor Observation of Outstretched Hands: 2= Slight Tremor Visible Yawning Observation: 1= 1-2x During Session Anxiety or Irritability: 2=Irritable/Anxious Goose Flesh Skin: 3=Piloerection COWS Score: 15 BHS Progress Note (SOAP) Subjective: Nausea, Tremors, Body Aches, Fatigue. Objective: PATIENT A & O X 3, OBSERVED AMBULATING ON UNIT. NO ACUTE DISTRESS. 07/31/17 15:47 Vital Signs Temperature 96.8 F L 07/31/17 13:38 Pulse Rate 70 07/31/17 13:38 Respiratory Rate 18 07/31/17 13:38 Blood Pressure 95/63 07/31/17 13:38 O2 Sat by Pulse Oximetry (%) Laboratory Tests 07/30/17 07/31/17 07/31/17 22:20 07:00 07:00 WBC 6.7 D RBC 5.18 Hgb 14.8 Hct 44.4 MCV 85.7 MCH 28.5 MCHC 33.3 RDW 13.4 Plt Count 202 D MPV 8.5 Sodium 139 Potassium 3.5 D Chloride 104 Carbon Dioxide 30 Anion Gap 5 L BUN 11 Creatinine 1.0 D Creat Clearance w eGFR > 60 Random Glucose 83 D Calcium 7.5 L Total Bilirubin 0.9 D AST 82 H D ALT 279 H D Alkaline Phosphatase 73 Total Protein 6.0 L D Albumin 3.0 L D Urine Color Randi Urine Appearance Sl cloudy Urine pH 5.0 Ur Specific [place] 1.031 Urine Protein 1+ H Urine Glucose (UA) Negative Urine Ketones Negative Urine Blood Negative Urine Nitrite Negative Urine Bilirubin Negative Urine Urobilinogen 2.0 Ur Leukocyte Esterase Negative Urine WBC (Auto) 6 Urine RBC (Auto) 1 Ur Epithelial Cells <1 Urine Casts 20 Urine Mucus Many Urine Other RPR Titer 07/31/17 07:00 WBC RBC Hgb Hct MCV MCH MCHC RDW Plt Count MPV Sodium Potassium Chloride Carbon Dioxide Anion Gap BUN Creatinine Creat Clearance w eGFR Random Glucose Calcium Total Bilirubin AST ALT Alkaline Phosphatase Total Protein Albumin Urine Color Urine Appearance Urine pH Ur Specific [place] Urine Protein Urine Glucose (UA) Urine Ketones Urine Blood Urine Nitrite Urine Bilirubin Urine Urobilinogen Ur Leukocyte Esterase Urine WBC (Auto) Urine RBC (Auto) Ur Epithelial Cells Urine Casts Urine Mucus Urine Other RPR Titer Nonreactive LABS NOTED. Assessment: 07/31/17 15:47 WITHDRAWAL SYMPTOMS. Plan: CONTINUE DETOX. INCREASE DAILY PO FLUID INTAKE ([facility] FOR BEDSIDE).
--- NOTE | 2017-07-31 17:41 | CONSULT ---
[facility] Psychiatric Consult - Data Date of interview: 07/31/17 Admission source: [facility] Identifying data: Patient is approached at bedside for psychiatric evaluation.Mr Crisostomo declines." I don't have issues to discuss with psychiatrists.I have decided not to take seroquel.I am fine.Thank you." Nursing staff is made aware.
[2017-07-31] MEDS: THIAMINE HCL 100 MG TABLET (FP) PO SCH (22:11)
[2017-07-31] MEDS: hydrOXYzine PAMOATE 50 MG CAPSULE (FP) PO PRN (22:14)
[2017-08-01] MEDS: CYCLOBENZAPRINE HCL 5 MG TABLET PO SCH ×3 (05:31→22:03)
[2017-08-01] MEDS: diazePAM 5 MG TABLET PO PRN ×4 (05:31→22:04)
[2017-08-01] MEDS ORDERED: METHADONE HCL 5 MG TABLET (FOR DETOX USE ONLY) PO ONE (10:00)
[2017-08-01] MEDS: PRENATAL VITAMINS W/ FOLIC ACID TABLET (FP) PO SCH (10:11)
[2017-08-01] MEDS: BACITRACIN 0.9 GM PACKET TP SCH ×2 (10:11→22:04)
--- NOTE | 2017-08-01 14:58 | PN ---
BHS COWS - Scale Resting Pulse: 1= [place] 81-100 Sweatin= Chills/Flushing Restless Observation: 1= Difficult to Sit Still Pupil Size: 0= Normal to Room Light Bone or Joint Aches: 2= Severe Diffuse Aches Runny Nose/ Eye Tearin= Nasal Congestion GI Upset > 30mins: 0= None Tremor Observation of Outstretched Hands: 0= None Yawning Observation: 1= 1-2x During Session Anxiety or Irritability: 2=Irritable/Anxious Goose Flesh Skin: 3=Piloerection COWS Score: 12 BHS Progress Note (SOAP) Subjective: Tremors, Body Aches, Interrupted Sleep. Objective: PATIENT A & O X 3, OBSERVED AMBULATING ON UNIT. NO ACUTE DISTRESS. 08/01/17 14:57 Vital Signs Temperature 97.2 F L 08/01/17 13:38 Pulse Rate 92 H 08/01/17 13:38 Respiratory Rate 18 08/01/17 13:38 Blood Pressure 102/73 08/01/17 13:38 O2 Sat by Pulse Oximetry (%) Laboratory Tests 07/30/17 07/31/17 07/31/17 22:20 07:00 07:00 WBC 6.7 D RBC 5.18 Hgb 14.8 Hct 44.4 MCV 85.7 MCH 28.5 MCHC 33.3 RDW 13.4 Plt Count 202 D MPV 8.5 Sodium 139 Potassium 3.5 D Chloride 104 Carbon Dioxide 30 Anion Gap 5 L BUN 11 Creatinine 1.0 D Creat Clearance w eGFR > 60 Random Glucose 83 D Calcium 7.5 L Total Bilirubin 0.9 D AST 82 H D ALT 279 H D Alkaline Phosphatase 73 Total Protein 6.0 L D Albumin 3.0 L D Urine Color Randi Urine Appearance Sl cloudy Urine pH 5.0 Ur Specific [place] 1.031 Urine Protein 1+ H Urine Glucose (UA) Negative Urine Ketones Negative Urine Blood Negative Urine Nitrite Negative Urine Bilirubin Negative Urine Urobilinogen 2.0 Ur Leukocyte Esterase Negative Urine WBC (Auto) 6 Urine RBC (Auto) 1 Ur Epithelial Cells <1 Urine Casts 20 Urine Mucus Many Urine Other RPR Titer 07/31/17 07:00 WBC RBC Hgb Hct MCV MCH MCHC RDW Plt Count MPV Sodium Potassium Chloride Carbon Dioxide Anion Gap BUN Creatinine Creat Clearance w eGFR Random Glucose Calcium Total Bilirubin AST ALT Alkaline Phosphatase Total Protein Albumin Urine Color Urine Appearance Urine pH Ur Specific [place] Urine Protein Urine Glucose (UA) Urine Ketones Urine Blood Urine Nitrite Urine Bilirubin Urine Urobilinogen Ur Leukocyte Esterase Urine WBC (Auto) Urine RBC (Auto) Ur Epithelial Cells Urine Casts Urine Mucus Urine Other RPR Titer Nonreactive LABS NOTED. Assessment: 08/01/17 14:57 WITHDRAWAL SYMPTOMS. Plan: CONTINUE DETOX. REPEAT AST TOMORROW AM FOR ELEVATED ADMISSION LEVEL. INCREASE DAILY PO FLUID INTAKE.
[2017-08-01] MEDS: THIAMINE HCL 100 MG TABLET (FP) PO SCH (22:03)
[2017-08-01] MEDS: hydrOXYzine PAMOATE 50 MG CAPSULE (FP) PO PRN (22:05)
[2017-08-01 22:19] VITALS: BP 105/70
[2017-08-02 06:03] VITALS: PULSE 77; TEMP 96
[2017-08-02] MEDS: CYCLOBENZAPRINE HCL 5 MG TABLET PO SCH (07:49)
[2017-08-02] MEDS ORDERED: METHADONE HCL 5 MG TABLET (FOR DETOX USE ONLY) PO ONE ×2 (08:41→10:00)
[2017-08-02] MEDS: PRENATAL VITAMINS W/ FOLIC ACID TABLET (FP) PO SCH (11:00)
[2017-08-02] MEDS: BACITRACIN 0.9 GM PACKET TP SCH (11:00)
--- NOTE | 2017-08-02 15:37 | PN ---
BHS Progress Note (SOAP) Subjective: Patient denies current Detox symptoms and reports that he feels well overall. Objective: PATIENT A & O X 3, OBSERVED AMBULATING ON UNIT. NO ACUTE DISTRESS. 08/02/17 15:36 Vital Signs Temperature 96 F L 08/02/17 06:03 Pulse Rate 77 08/02/17 06:03 Respiratory Rate 18 08/02/17 06:30 Blood Pressure 105/70 08/02/17 06:03 O2 Sat by Pulse Oximetry (%) Laboratory Tests 07/30/17 07/31/17 07/31/17 22:20 07:00 07:00 WBC 6.7 D RBC 5.18 Hgb 14.8 Hct 44.4 MCV 85.7 MCH 28.5 MCHC 33.3 RDW 13.4 Plt Count 202 D MPV 8.5 Sodium 139 Potassium 3.5 D Chloride 104 Carbon Dioxide 30 Anion Gap 5 L BUN 11 Creatinine 1.0 D Creat Clearance w eGFR > 60 Random Glucose 83 D Calcium 7.5 L Total Bilirubin 0.9 D AST 82 H D ALT 279 H D Alkaline Phosphatase 73 Total Protein 6.0 L D Albumin 3.0 L D Urine Color Randi Urine Appearance Sl cloudy Urine pH 5.0 Ur Specific [place] 1.031 Urine Protein 1+ H Urine Glucose (UA) Negative Urine Ketones Negative Urine Blood Negative Urine Nitrite Negative Urine Bilirubin Negative Urine Urobilinogen 2.0 Ur Leukocyte Esterase Negative Urine WBC (Auto) 6 Urine RBC (Auto) 1 Ur Epithelial Cells <1 Urine Casts 20 Urine Mucus Many Urine Other RPR Titer 07/31/17 07:00 WBC RBC Hgb Hct MCV MCH MCHC RDW Plt Count MPV Sodium Potassium Chloride Carbon Dioxide Anion Gap BUN Creatinine Creat Clearance w eGFR Random Glucose Calcium Total Bilirubin AST ALT Alkaline Phosphatase Total Protein Albumin Urine Color Urine Appearance Urine pH Ur Specific [place] Urine Protein Urine Glucose (UA) Urine Ketones Urine Blood Urine Nitrite Urine Bilirubin Urine Urobilinogen Ur Leukocyte Esterase Urine WBC (Auto) Urine RBC (Auto) Ur Epithelial Cells Urine Casts Urine Mucus Urine Other RPR Titer Nonreactive LABS NOTED. 08/02/17 15:38 Assessment: 08/02/17 15:38 COMPLETION OF DETOX REGIMEN. Plan: PATIENT TO BE DISCHARGED FROM DETOX UNIT TODAY.
--- NOTE | 2017-08-02 15:43 | DS ---
[facility] Detox Discharge Summary Admission Date: 07/30/17 Discharge Date: 08/02/17 - History Present History: Opioid Dependence Additional Comments: PATIENT DENIES CURRENT WITHDRAWAL SYMPTOMS AND REPORTS THAT HE FEELS WELL OVERALL. PATIENT RETURNING TO [facility] ([facility] FOR AFTERCARE. PATIENT WAS DISCHARGED FROM DETOX UNIT IN STABLE MEDICAL CONDITION. Pertinent Past History: History of Bulging Discs, History of Intractable Low Back Pain, History of Bipolar Disorder, Numbness in Bilateral Hands, Dehydration, Weakness in Left Leg. - Physical Exam Results Vital Signs: Vital Signs Temperature 96 F L 08/02/17 06:03 Pulse Rate 77 08/02/17 06:03 Respiratory Rate 18 08/02/17 06:30 Blood Pressure 105/70 08/02/17 06:03 O2 Sat by Pulse Oximetry (%) Pertinent Admission Physical Exam Findings: WITHDRAWAL SYMPTOMS. Laboratory Tests 07/30/17 07/31/17 07/31/17 22:20 07:00 07:00 WBC 6.7 D RBC 5.18 Hgb 14.8 Hct 44.4 MCV 85.7 MCH 28.5 MCHC 33.3 RDW 13.4 Plt Count 202 D MPV 8.5 Sodium 139 Potassium 3.5 D Chloride 104 Carbon Dioxide 30 Anion Gap 5 L BUN 11 Creatinine 1.0 D Creat Clearance w eGFR > 60 Random Glucose 83 D Calcium 7.5 L Total Bilirubin 0.9 D AST 82 H D ALT 279 H D Alkaline Phosphatase 73 Total Protein 6.0 L D Albumin 3.0 L D Urine Color Randi Urine Appearance Sl cloudy Urine pH 5.0 Ur Specific [place] 1.031 Urine Protein 1+ H Urine Glucose (UA) Negative Urine Ketones Negative Urine Blood Negative Urine Nitrite Negative Urine Bilirubin Negative Urine Urobilinogen 2.0 Ur Leukocyte Esterase Negative Urine WBC (Auto) 6 Urine RBC (Auto) 1 Ur Epithelial Cells <1 Urine Casts 20 Urine Mucus Many Urine Other RPR Titer 07/31/17 07:00 WBC RBC Hgb Hct MCV MCH MCHC RDW Plt Count MPV Sodium Potassium Chloride Carbon Dioxide Anion Gap BUN Creatinine Creat Clearance w eGFR Random Glucose Calcium Total Bilirubin AST ALT Alkaline Phosphatase Total Protein Albumin Urine Color Urine Appearance Urine pH Ur Specific [place] Urine Protein Urine Glucose (UA) Urine Ketones Urine Blood Urine Nitrite Urine Bilirubin Urine Urobilinogen Ur Leukocyte Esterase Urine WBC (Auto) Urine RBC (Auto) Ur Epithelial Cells Urine Casts Urine Mucus Urine Other RPR Titer Nonreactive LABS NOTED. - Treatment Hospital Course: Detox Protocol Followed, Detoxed Safely, Responded well, Discharged Condition Good Patient has Accepted a Rehab Referral to: PT. RETURNING TO [facility] ([facility]). - Medication Discharge Medications: Ambulatory Orders Quetiapine Fumarate [Seroquel -] 50 mg PO HS 07/30/17 - Diagnosis (1) Opioid dependence with withdrawal Status: Acute (2) Numbness in both hands Status: Acute (3) Intractable low back pain Status: Chronic (4) Left leg weakness Status: Chronic (5) Bulging discs Status: Chronic (6) Dehydration Status: Acute - AMA Did Patient Leave Against Medical Advice: No
[2017-08-03] MEDS ORDERED: METHADONE HCL 10 MG TABLET (FOR DETOX USE ONLY) PO ONE (10:00)
[2017-08-04] MEDS ORDERED: METHADONE HCL 5 MG TABLET (FOR DETOX USE ONLY) PO ONE (06:00)
--- NOTE | 2017-08-12 11:57 | HP ---
Screened but not Admitted - Documentation of Visit Screened but not Admitted: Yes Patient Does Not Meet Criteria for Admission: Yes Additional Information/Explanation: patient stated has chonic low back pain scheduled for surgery on sunday on. 08/14,history of opioid dependence admitted at [facility] from 07/30/17 to 08/02/17,bp 137/80,p96,r19,t97.3. no withdrawal symptom. does not meet criteria for detox. advise follow up with pmd and own neurosurgeon. left [facility] in stable condition
== END 2017-08-02 09:32 | disposition home or self-care (01) | DRG 773 ==
LOC: YASAS 12:12 → Y3N 17:13
PROVIDERS: ADMIT Internal Medicine; ATTEND Internal Medicine
PROC: HZ2ZZZZ Detoxification Services for Substance Abuse Treatment (ICD-10-PCS; principal; 2017-07-30)
DX: F11.23 Opioid dependence with withdrawal (principal); R20.0 Anesthesia of skin; M54.5 Low back pain; G89.29 Other chronic pain; E86.0 Dehydration; M51.27 Other intervertebral disc displacement, lumbosacral region; M62.81 Muscle weakness (generalized); Z88.0 Allergy status to penicillin
CPT/HCPCS: 36415; 80053; 81003; 81015; 85027; 86593; 93005; 93010

== ENCOUNTER 2018-04-14 13:32 | Inpatient (IN) | payer SELFPAY ==
[2018-04-14 14:32] VITALS: BMI 24.2
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
[2018-04-14] MEDS ORDERED: ACETAMINOPHEN 325 MG TABLET (FP) PO PRN (18:39)
[2018-04-14] MEDS ORDERED: MAG HYDROX/AL HYDROX/SIMETH 30 ML UNIT-DOSE CUP PO PRN (18:39)
[2018-04-14] MEDS ORDERED: P-EPHED 60MG/TRIPROLIDI 2.5MG TABLET PO PRN (18:39)
[2018-04-14] MEDS ORDERED: LOPERAMIDE HCL 2 MG CAPSULE PO PRN (18:39)
[2018-04-14] MEDS ORDERED: MAGNESIUM CITRATE 300 ML BOTTLE PO PRN (18:39)
[2018-04-14] MEDS ORDERED: IBUPROFEN 400 MG TABLET (FP) PO PRN (18:39)
[2018-04-14] MEDS ORDERED: guaiFENesin/D-METHORPHAN HB 10 ML UNIT-DOSE CUPS PO PRN (18:39)
[2018-04-14] MEDS ORDERED: MENTHOL/PHENOL 1 EACH UD MM PRN (18:39)
[2018-04-14] MEDS ORDERED: MAGNESIUM HYDROX 2400MG/30ML ORAL SUSPENSION 30 ML CUP PO PRN (18:39)
[2018-04-14] MEDS ORDERED: METHADONE HCL 10 MG TABLET (FOR DETOX USE ONLY) PO ONE ×2 (19:30→23:00)
[2018-04-14] MEDS: diazePAM 5 MG TABLET PO PRN (19:54)
[2018-04-14] MEDS ORDERED: MELATONIN 5 MG TABLETS PO PRN (22:00)
[2018-04-14] MEDS: THIAMINE HCL 100 MG TABLET (FP) PO SCH (22:40)
[2018-04-15] MEDS: diazePAM 5 MG TABLET PO PRN ×4 (01:04→22:36)
[2018-04-15 09:57] LABS: HEMATOCRIT 41.1 % (35.4-49); HEMOGLOBIN 13.6 GM/dL (11.7-16.9); MCH 26.2 pg (25.7-33.7); MCHC 33.1 g/dl (32.0-35.9); MEAN CELL VOLUME 79.2 fl (80-96); MEAN PLT VOLUME 8.1 fl (7.5-11.1); PLATELET COUNT 229 K/MM3 (134-434); RDW 17.8 % (11.9-15.9); WHITE BLOOD COUNT 4.9 K/mm3 (4.0-10.0)
[2018-04-15] MEDS ORDERED: METHADONE HCL 10 MG TABLET (FOR DETOX USE ONLY) PO ONE (10:00)
[2018-04-15 10:09] LABS: ALBUMIN 3.2 g/dl (3.4-5.0); ALK PHOS 87 U/L (45-117); ANION GAP 5 MMOL/L (8-16); BILIRUBIN,TOTAL 0.7 mg/dL (0.2-1); BLOOD UREA NITROGEN 12 mg/dL (7-18); CALCIUM 8.3 mg/dL (8.5-10.1); CHLORIDE 103 mmol/L (98-107); CO2 31 mmol/L (21-32); CREATININE 0.9 mg/dL (0.55-1.3); GLUCOSE,RANDOM 82 mg/dL (74-106); POTASSIUM 3.9 mmol/L (3.5-5.1); SGOT/AST 32 U/L (15-37); SGPT/ALT 108 U/L (13-61); SODIUM 139 mmol/L (136-145); TOT PROT 6.2 g/dl (6.4-8.2)
--- NOTE | 2018-04-15 10:09 | CONSULT ---
[facility] Psychiatric Consult - Data Date of interview: 04/15/18 Admission source: [facility] Identifying data: Patient is approached by group underwriter + medical students for psychiatric interview. Mr Crisostomo declines. Nursing staff is made aware.
[2018-04-15] MEDS: PRENATAL VITAMINS W/ FOLIC ACID TABLET (FP) PO SCH (10:26)
--- NOTE | 2018-04-15 11:23 | PN ---
BHS COWS - Scale Resting Pulse: 0= MT 80 or Below Sweatin= Chills/Flushing Restless Observation: 0= Sits Still Pupil Size: 1= Pupils >than Normal Bone or Joint Aches: 2= Severe Diffuse Aches Runny Nose/ Eye Tearin= Nasal Congestion GI Upset > 30mins: 1= Stomach Cramp Tremor Observation of Outstretched Hands: 1= Tremor [place], Not Seen Yawning Observation: 2= >3x During Session Anxiety or Irritability: 1=Feels Anxious/Irritable Goose Flesh Skin: 0=Smooth Skin COWS Score: 10 S Progress Note (SOAP) Subjective: body aches joints pain tremor Objective: 04/15/18 11:25 Vital Signs Temperature 98.6 F 04/15/18 09:07 Pulse Rate 74 04/15/18 09:07 Respiratory Rate 20 04/15/18 09:07 Blood Pressure 95/60 04/15/18 09:07 O2 Sat by Pulse Oximetry (%) Laboratory Last Values WBC 4.9 K/mm3 (4.0-10.0) 04/15/18 08:00 RBC 5.20 M/mm3 (4.00-5.60) 04/15/18 08:00 Hgb 13.6 GM/dL (11.7-16.9) 04/15/18 08:00 Hct 41.1 % (35.4-49) 04/15/18 08:00 MCV 79.2 fl (80-96) L 04/15/18 08:00 MCH 26.2 pg (25.7-33.7) 04/15/18 08:00 MCHC 33.1 g/dl (32.0-35.9) 04/15/18 08:00 RDW 17.8 % (11.9-15.9) H 04/15/18 08:00 Plt Count 229 K/MM3 (134-434) 04/15/18 08:00 MPV 8.1 fl (7.5-11.1) 04/15/18 08:00 Sodium 139 mmol/L (136-145) 04/15/18 07:50 Potassium 3.9 mmol/L (3.5-5.1) 04/15/18 07:50 Chloride 103 mmol/L (98-107) 04/15/18 07:50 Carbon Dioxide 31 mmol/L (21-32) 04/15/18 07:50 Anion Gap 5 MMOL/L (8-16) L 04/15/18 07:50 BUN 12 mg/dL (7-18) 04/15/18 07:50 Creatinine 0.9 mg/dL (0.55-1.3) 04/15/18 07:50 Creat Clearance w eGFR > 60 (>60) 04/15/18 07:50 Random Glucose 82 mg/dL (74-106) 04/15/18 07:50 Calcium 8.3 mg/dL (8.5-10.1) L 04/15/18 07:50 Total Bilirubin 0.7 mg/dL (0.2-1) 04/15/18 07:50 AST 32 U/L (15-37) 04/15/18 07:50 ALT 108 U/L (13-61) H 04/15/18 07:50 Alkaline Phosphatase 87 U/L (45-117) 04/15/18 07:50 Total Protein 6.2 g/dl (6.4-8.2) L 04/15/18 07:50 Albumin 3.2 g/dl (3.4-5.0) L 04/15/18 07:50 lab noted Assessment: 04/15/18 11:30 withdrawal sx Plan: continue detox
[2018-04-15] MEDS: THIAMINE HCL 100 MG TABLET (FP) PO SCH (22:35)
[2018-04-16] MEDS: diazePAM 5 MG TABLET PO PRN ×4 (01:41→22:26)
[2018-04-16] MEDS ORDERED: METHADONE HCL 5 MG TABLET (FOR DETOX USE ONLY) PO ONE (10:00)
[2018-04-16] MEDS: PRENATAL VITAMINS W/ FOLIC ACID TABLET (FP) PO SCH (10:27)
--- NOTE | 2018-04-16 14:51 | PN ---
BHS COWS - Scale Resting Pulse: 1= [place] 81-100 Sweatin= Chills/Flushing Restless Observation: 1= Difficult to Sit Still Pupil Size: 0= Normal to Room Light Bone or Joint Aches: 1= Mild Discomfort Runny Nose/ Eye Tearin= Nasal Congestion GI Upset > 30mins: 1= Stomach Cramp Tremor Observation of Outstretched Hands: 1= Tremor [place], Not Seen Yawning Observation: 1= 1-2x During Session Anxiety or Irritability: 1=Feels Anxious/Irritable Goose Flesh Skin: 0=Smooth Skin COWS Score: 9 BHS Progress Note (SOAP) Subjective: anxiety restlessness body aches joints pain muscle cramping Objective: 04/16/18 14:50 Vital Signs Temperature 96.7 F L 04/16/18 13:04 Pulse Rate 78 04/16/18 13:04 Respiratory Rate 18 04/16/18 13:04 Blood Pressure 122/72 04/16/18 13:04 O2 Sat by Pulse Oximetry (%) Laboratory Last Values WBC 4.9 K/mm3 (4.0-10.0) 04/15/18 08:00 RBC 5.20 M/mm3 (4.00-5.60) 04/15/18 08:00 Hgb 13.6 GM/dL (11.7-16.9) 04/15/18 08:00 Hct 41.1 % (35.4-49) 04/15/18 08:00 MCV 79.2 fl (80-96) L 04/15/18 08:00 MCH 26.2 pg (25.7-33.7) 04/15/18 08:00 MCHC 33.1 g/dl (32.0-35.9) 04/15/18 08:00 RDW 17.8 % (11.9-15.9) H 04/15/18 08:00 Plt Count 229 K/MM3 (134-434) 04/15/18 08:00 MPV 8.1 fl (7.5-11.1) 04/15/18 08:00 Sodium 139 mmol/L (136-145) 04/15/18 07:50 Potassium 3.9 mmol/L (3.5-5.1) 04/15/18 07:50 Chloride 103 mmol/L (98-107) 04/15/18 07:50 Carbon Dioxide 31 mmol/L (21-32) 04/15/18 07:50 Anion Gap 5 MMOL/L (8-16) L 04/15/18 07:50 BUN 12 mg/dL (7-18) 04/15/18 07:50 Creatinine 0.9 mg/dL (0.55-1.3) 04/15/18 07:50 Creat Clearance w eGFR > 60 (>60) 04/15/18 07:50 Random Glucose 82 mg/dL (74-106) 04/15/18 07:50 Calcium 8.3 mg/dL (8.5-10.1) L 04/15/18 07:50 Total Bilirubin 0.7 mg/dL (0.2-1) 04/15/18 07:50 AST 32 U/L (15-37) 04/15/18 07:50 ALT 108 U/L (13-61) H 04/15/18 07:50 Alkaline Phosphatase 87 U/L (45-117) 04/15/18 07:50 Total Protein 6.2 g/dl (6.4-8.2) L 04/15/18 07:50 Albumin 3.2 g/dl (3.4-5.0) L 04/15/18 07:50 RPR Titer Nonreactive (NONREACTIVE) 04/15/18 07:50 lab noted Assessment: 04/16/18 14:50 withdrawal sx Plan: continue detox
[2018-04-16] MEDS: THIAMINE HCL 100 MG TABLET (FP) PO SCH (22:24)
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
[2018-04-17] MEDS: diazePAM 5 MG TABLET PO PRN ×3 (03:53→14:46)
[2018-04-17] MEDS ORDERED: METHADONE HCL 5 MG TABLET (FOR DETOX USE ONLY) PO ONE (10:00)
[2018-04-17] MEDS: PRENATAL VITAMINS W/ FOLIC ACID TABLET (FP) PO SCH (10:21)
--- NOTE | 2018-04-17 13:55 | PN ---
BHS COWS - Scale Resting Pulse: 1= [place] 81-100 Sweatin= Chills/Flushing Restless Observation: 1= Difficult to Sit Still Pupil Size: 1= Pupils >than Normal Bone or Joint Aches: 1= Mild Discomfort Runny Nose/ Eye Tearin= Nasal Congestion GI Upset > 30mins: 1= Stomach Cramp Tremor Observation of Outstretched Hands: 1= Tremor [place], Not Seen Yawning Observation: 0= None Anxiety or Irritability: 1=Feels Anxious/Irritable Goose Flesh Skin: 0=Smooth Skin COWS Score: 9 BHS Progress Note (SOAP) Subjective: body aches tremor sweating Objective: 04/17/18 14:10 Vital Signs Temperature 97.8 F 04/17/18 13:40 Pulse Rate 121 H 04/17/18 13:40 Respiratory Rate 16 04/17/18 13:40 Blood Pressure 111/72 04/17/18 13:40 O2 Sat by Pulse Oximetry (%) Laboratory Last Values WBC 4.9 K/mm3 (4.0-10.0) 04/15/18 08:00 RBC 5.20 M/mm3 (4.00-5.60) 04/15/18 08:00 Hgb 13.6 GM/dL (11.7-16.9) 04/15/18 08:00 Hct 41.1 % (35.4-49) 04/15/18 08:00 MCV 79.2 fl (80-96) L 04/15/18 08:00 MCH 26.2 pg (25.7-33.7) 04/15/18 08:00 MCHC 33.1 g/dl (32.0-35.9) 04/15/18 08:00 RDW 17.8 % (11.9-15.9) H 04/15/18 08:00 Plt Count 229 K/MM3 (134-434) 04/15/18 08:00 MPV 8.1 fl (7.5-11.1) 04/15/18 08:00 Sodium 139 mmol/L (136-145) 04/15/18 07:50 Potassium 3.9 mmol/L (3.5-5.1) 04/15/18 07:50 Chloride 103 mmol/L (98-107) 04/15/18 07:50 Carbon Dioxide 31 mmol/L (21-32) 04/15/18 07:50 Anion Gap 5 MMOL/L (8-16) L 04/15/18 07:50 BUN 12 mg/dL (7-18) 04/15/18 07:50 Creatinine 0.9 mg/dL (0.55-1.3) 04/15/18 07:50 Creat Clearance w eGFR > 60 (>60) 04/15/18 07:50 Random Glucose 82 mg/dL (74-106) 04/15/18 07:50 Calcium 8.3 mg/dL (8.5-10.1) L 04/15/18 07:50 Total Bilirubin 0.7 mg/dL (0.2-1) 04/15/18 07:50 AST 32 U/L (15-37) 04/15/18 07:50 ALT 108 U/L (13-61) H 04/15/18 07:50 Alkaline Phosphatase 87 U/L (45-117) 04/15/18 07:50 Total Protein 6.2 g/dl (6.4-8.2) L 04/15/18 07:50 Albumin 3.2 g/dl (3.4-5.0) L 04/15/18 07:50 RPR Titer Nonreactive (NONREACTIVE) 04/15/18 07:50 lab noted Assessment: 04/17/18 14:10 withdrawal sx Plan: continue detox
[2018-04-17] MEDS: hydrOXYzine PAMOATE 25 MG CAPSULE (FP) PO PRN (19:45)
[2018-04-17] MEDS: THIAMINE HCL 100 MG TABLET (FP) PO SCH (22:17)
[2018-04-17] MEDS ORDERED: QUEtiapine FUMARATE 25 MG TABLET (FP) PO ONE (22:21)
[2018-04-18] MEDS ORDERED: hydrOXYzine PAMOATE 25 MG CAPSULE (FP) PO SCH
[2018-04-18] MEDS ORDERED: METHADONE HCL 10 MG TABLET (FOR DETOX USE ONLY) PO ONE (10:00)
[2018-04-18] MEDS: PRENATAL VITAMINS W/ FOLIC ACID TABLET (FP) PO SCH (10:04)
[2018-04-18] MEDS: hydrOXYzine PAMOATE 25 MG CAPSULE (FP) PO PRN ×3 (10:06→22:20)
--- NOTE | 2018-04-18 15:28 | PN ---
BHS COWS - Scale Resting Pulse: 0= HI 80 or Below Sweatin= Chills/Flushing Restless Observation: 0= Sits Still Pupil Size: 0= Normal to Room Light Bone or Joint Aches: 1= Mild Discomfort Runny Nose/ Eye Tearin= None GI Upset > 30mins: 1= Stomach Cramp Tremor Observation of Outstretched Hands: 1= Tremor [place], Not Seen Yawning Observation: 2= >3x During Session Anxiety or Irritability: 1=Feels Anxious/Irritable Goose Flesh Skin: 0=Smooth Skin COWS Score: 7 BHS Progress Note (SOAP) Subjective: patient requests to see a psychiatrist for his psychotropic medication which he had not taken for "a while" feeling better mild body ache little tremor less sweating Objective: 04/18/18 15:28 Vital Signs Temperature 97.4 F L 04/18/18 13:52 Pulse Rate 78 04/18/18 13:52 Respiratory Rate 20 04/18/18 13:52 Blood Pressure 112/76 04/18/18 13:52 O2 Sat by Pulse Oximetry (%) Laboratory Last Values WBC 4.9 K/mm3 (4.0-10.0) 04/15/18 08:00 RBC 5.20 M/mm3 (4.00-5.60) 04/15/18 08:00 Hgb 13.6 GM/dL (11.7-16.9) 04/15/18 08:00 Hct 41.1 % (35.4-49) 04/15/18 08:00 MCV 79.2 fl (80-96) L 04/15/18 08:00 MCH 26.2 pg (25.7-33.7) 04/15/18 08:00 MCHC 33.1 g/dl (32.0-35.9) 04/15/18 08:00 RDW 17.8 % (11.9-15.9) H 04/15/18 08:00 Plt Count 229 K/MM3 (134-434) 04/15/18 08:00 MPV 8.1 fl (7.5-11.1) 04/15/18 08:00 Sodium 139 mmol/L (136-145) 04/15/18 07:50 Potassium 3.9 mmol/L (3.5-5.1) 04/15/18 07:50 Chloride 103 mmol/L (98-107) 04/15/18 07:50 Carbon Dioxide 31 mmol/L (21-32) 04/15/18 07:50 Anion Gap 5 MMOL/L (8-16) L 04/15/18 07:50 BUN 12 mg/dL (7-18) 04/15/18 07:50 Creatinine 0.9 mg/dL (0.55-1.3) 04/15/18 07:50 Creat Clearance w eGFR > 60 (>60) 04/15/18 07:50 Random Glucose 82 mg/dL (74-106) 04/15/18 07:50 Calcium 8.3 mg/dL (8.5-10.1) L 04/15/18 07:50 Total Bilirubin 0.7 mg/dL (0.2-1) 04/15/18 07:50 AST 32 U/L (15-37) 04/15/18 07:50 ALT 108 U/L (13-61) H 04/15/18 07:50 Alkaline Phosphatase 87 U/L (45-117) 04/15/18 07:50 Total Protein 6.2 g/dl (6.4-8.2) L 04/15/18 07:50 Albumin 3.2 g/dl (3.4-5.0) L 04/15/18 07:50 RPR Titer Nonreactive (NONREACTIVE) 04/15/18 07:50 lab noted Assessment: 04/18/18 15:28 mild withdrawal sx 04/18/18 15:28 Plan: continue detox
[2018-04-18] MEDS ORDERED: QUEtiapine FUMARATE 25 MG TABLET (FP) PO ONE (20:28)
--- NOTE | 2018-04-18 20:29 | PN ---
S Progress Note Note: Vital Signs Temperature 96.1 F L 04/18/18 18:36 Pulse Rate 93 H 04/18/18 18:36 Respiratory Rate 18 04/18/18 18:36 Blood Pressure 96/67 04/18/18 18:36 O2 Sat by Pulse Oximetry (%) Patient w/ hx of insomnia c/o of difficulty sleeping, one time dose seroquel 25 mg ordered. Patient reports hx of ringing of the ears reports, patient stable, patient to follow up with primary care provider. continue to monitor
[2018-04-18] MEDS: THIAMINE HCL 100 MG TABLET (FP) PO SCH (22:17)
[2018-04-19] MEDS: hydrOXYzine PAMOATE 25 MG CAPSULE (FP) PO PRN (05:46)
[2018-04-19] MEDS ORDERED: METHADONE HCL 5 MG TABLET (FOR DETOX USE ONLY) PO ONE (06:00)
[2018-04-19 09:34] VITALS: BP 102/66; PULSE 120; TEMP 95.8
--- NOTE | 2018-04-19 19:11 | DS ---
[facility] Detox Discharge Summary Admission Date: 04/14/18 Discharge Date: 04/19/18 - History Present History: Opioid Dependence, Sedative Dependence Additional Comments: PATIENT REFERRED TO [facility] ([place], [place]) FOR AFTERCARE. PATIENT WAS DISCHARGED FROM DETOX UNIT IN STABLE MEDICAL CONDITION. Pertinent Past History: History of Depression, Insomnia, History Of Bulging Discs in Back, History of Numbness in Both Hands, Nicotine Dependence. - Physical Exam Results Vital Signs: Vital Signs Temperature 95.8 F L 04/19/18 09:33 Pulse Rate 120 H 04/19/18 09:33 Respiratory Rate 20 04/19/18 09:33 Blood Pressure 102/66 04/19/18 09:33 O2 Sat by Pulse Oximetry (%) Pertinent Admission Physical Exam Findings: WITHDRAWAL SYMPTOMS. Laboratory Tests 04/15/18 04/15/18 04/15/18 07:50 07:50 08:00 WBC 4.9 RBC 5.20 Hgb 13.6 Hct 41.1 MCV 79.2 L MCH 26.2 MCHC 33.1 RDW 17.8 H Plt Count 229 MPV 8.1 Sodium 139 Potassium 3.9 Chloride 103 Carbon Dioxide 31 Anion Gap 5 L BUN 12 Creatinine 0.9 Creat Clearance w eGFR > 60 Random Glucose 82 Calcium 8.3 L Total Bilirubin 0.7 AST 32 ALT 108 H Alkaline Phosphatase 87 Total Protein 6.2 L Albumin 3.2 L RPR Titer Nonreactive LABS NOTED. - Treatment Hospital Course: Detox Protocol Followed, Detoxed Safely, Responded well, Discharged Condition Good Patient has Accepted a Rehab Referral to: [facility] ([place], [place]) . - Medication Discharge Medications: Ambulatory Orders Gabapentin [Neurontin -] 1,200 mg PO TID 09/13/17 Quetiapine Fumarate [Seroquel -] 25 mg PO HS 04/14/18 Naloxone HCl [Narcan] 4 mg NS ASDIR PRN 04/16/18 - Diagnosis (1) Nicotine dependence Status: Acute Qualifiers: Nicotine product type: cigarettes Substance use status: uncomplicated Qualified Code(s): F17.210 - Nicotine dependence, cigarettes, uncomplicated (2) Opioid dependence with withdrawal Status: Acute (3) Sedative hypnotic or anxiolytic dependence Status: Acute (4) Bulging discs Status: Chronic (5) Insomnia Status: Chronic Qualifiers: Insomnia type: unspecified Qualified Code(s): G47.00 - Insomnia, unspecified (6) Numbness in both hands Status: Chronic - AMA Did Patient Leave Against Medical Advice: No
== END 2018-04-19 09:19 | disposition home or self-care (01) | DRG 773 ==
LOC: YASAS 13:32 → Y3N 19:00
PROVIDERS: ADMIT Surgery; ATTEND Surgery
PROC: HZ2ZZZZ Detoxification Services for Substance Abuse Treatment (ICD-10-PCS; principal; 2018-04-14)
DX: F11.23 Opioid dependence with withdrawal (principal); F13.20 Sedative, hypnotic or anxiolytic dependence, uncomplicated; F17.200 Nicotine dependence, unspecified, uncomplicated; G47.00 Insomnia, unspecified
CPT/HCPCS: 36415; 80053; 85027; 86593

== ENCOUNTER 2018-04-21 22:54 | Emergency (ER) | payer SELFPAY ==
[2018-04-21 23:07] VITALS: BP 134/81; PULSE 80; TEMP 97.8; BMI 25.2
--- NOTE | 2018-04-21 23:23 | PDOC ---
History of Present Illness - General Chief Complaint: Pain, Acute Stated Complaint: NECK PAIN Time Seen by Provider: 04/21/18 23:17 - History of Present Illness Initial Comments: 04/21/18 23:53 42 yo male with PMH Vericocele s/p repair, former opiate and cocain user, extensive spinal surgery with fusions, presents with complaint of chronic back pain since his last surgery in July of 2017 and recent weakness with repeated falls, most recently today with head trauma. He also endorses recent cough however states over the last few days he has had some chest pain and felt unable to cough. He denies any fevers but does endorse chills over that time. He states that after his fall today he had some nausea and an episode of non bloody vomiting. Past History - Travel Traveled outside of the country in the last 30 days: No - Past Medical History Allergies/Adverse Reactions: Allergies Allergy/AdvReac Type Severity Reaction Status Date / Time baclofen Allergy Severe Difficulty Verified 04/14/18 18:56 Breathing Penicillins Allergy unknown Verified 04/14/18 18:56 Home Medications: Ambulatory Orders Gabapentin [Neurontin -] 1,200 mg PO TID 09/13/17 Quetiapine Fumarate [Seroquel -] 25 mg PO HS 04/14/18 Naloxone HCl [Narcan] 4 mg NS ASDIR PRN 04/16/18 Anemia: No Asthma: No Cancer: No Cardiac Disorders: No CVA: No COPD: No CHF: No Dementia: No Diabetes: No GI Disorders: No Disorders: No HTN: No Hypercholesterolemia: No Kidney Stones: No Liver Disease: No Seizures: No Thyroid Disease: No - Surgical History Abdominal Surgery: No Appendectomy: No Cardiac Surgery: No Cholecystectomy: No Lung Surgery: Yes (tumor removal (2016)) Neurologic Surgery: Yes (neck/back sx in 08/14/2017) Orthopedic Surgery: Yes (R KNEE SX-1989 - arthroscopy) - Reproductive History Testicular Surgery: No - Suicide/Smoking/Psychosocial Hx Smoking History: Never smoked Have you smoked in the past 12 months: No Number of Cigarettes Smoked Daily: 2 Information on smoking cessation initiated: No 'Breaking Loose' booklet given: 04/14/18 Hx Alcohol Use: No Drug/Substance Use Hx: No Substance Use Type: Heroin, Opiates Hx Substance Use Treatment: Yes (07/2017) Review of Systems - Review of Systems Able to Perform ROS?: Yes Constitutional: Yes: Chills, Unintentional Wgt. Loss, Unexplained wgt Loss. No : Fever HEENTM: No: Blurred Vision, Throat Pain, Difficulty Swallowing Respiratory: Yes: Cough. No: Shortness of Breath, Hemoptysis Cardiac (ROS): Yes: Chest Pain. No: Edema, Irregular Heart Rate, Palpitations ABD/GI: No: Abdominal Distended : No: Burning, Dysuria, Testicular Pain Musculoskeletal: Yes: Back Pain Neurological: Yes: Paresthesia, Weakness, Unsteady Gait. No: Headache *Physical Exam - Vital Signs Last Vital Signs Temp Pulse Resp BP Pulse Ox 97.8 F 80 16 134/81 98 04/21/18 23:04 04/21/18 23:04 04/21/18 23:04 04/21/18 23:04 04/21/18 23:04 - Physical Exam Comments: 04/22/18 00:01 GEN: A&O, no acute distress HEENT: PERRL, EOMI, moist mucus membranes NECK: supple, no point tenderness, no lymphadenopathy HEART: RRR, no murmurs noted LUNGS: CTA b/l, no wheezes or rales ABDOMEN: Soft, mild point tenderness in LLQ EXTREMITIES: no peripheral edema, 2+ pulses NEURO: CN II-XII in tact. decreased sensation in right leg, 3/5 strength in left leg, decreased distal sensation in RUE. Positive Romberg. Antalgic gait. Moderate Sedation - Procedure Monitoring Vital Signs: Procedure Monitoring Vital Signs Temperature 97.8 F 04/21/18 23:04 Pulse Rate 80 04/21/18 23:04 Respiratory Rate 16 04/21/18 23:04 Blood Pressure 134/81 04/21/18 23:04 O2 Sat by Pulse Oximetry (%) 98 04/21/18 23:04 Medical Decision Making - Medical Decision Making 04/22/18 00:06 With complaint of recent fall with head trauma and hx of c-spine fusions/ hardware, will order stat CT head to r/o bleed and CT c-spine to evaluate for acute fracture. CBC, CMP, Trop, UA, UTox, EKG, CXR pending. Will sign out to overnight resident, discuss case, and answer all questions. *DC/Admit/Observation/Transfer Diagnosis at time of Disposition: Fall, Chest pain - Discharge Dispostion Condition at time of disposition: Stable - Referrals - Patient Instructions - Post Discharge Activity
[2018-04-21] MEDS ORDERED: ONDANSETRON 4 MG/2 ML VIAL IVPUSH ONE (23:43)
[2018-04-21] MEDS ORDERED: SODIUM CHLORIDE 0.9% 1000 ML INFUS.BAG IV ONE (23:43)
[2018-04-21] MEDS ORDERED: ACETAMINOPHEN 1000 MG/100 ML VIAL (NON FORMULARY) IVPB ONE (23:46)
[2018-04-22] MEDS ORDERED: ONDANSETRON 4 MG/2 ML VIAL ONE (00:09)
[2018-04-22] MEDS ORDERED: ONDANSETRON *ODT* 4 MG TABLET ONE (00:09)
--- NOTE | 2018-04-22 00:16 | PDOC ---
*Physical Exam - Vital Signs Last Vital Signs Temp Pulse Resp BP Pulse Ox 97.8 F 80 16 134/81 98 04/21/18 23:04 04/21/18 23:04 04/21/18 23:04 04/21/18 23:04 04/21/18 23:04 <Ade Cabral - Last Filed: 04/22/18 01:49> - Vital Signs Last Vital Signs Temp Pulse Resp BP Pulse Ox 97.8 F 80 16 134/81 98 04/21/18 23:04 04/21/18 23:04 04/21/18 23:04 04/21/18 23:04 04/21/18 23:04 <Hi Carson - Last Filed: 04/22/18 01:57> ED Treatment Course - LABORATORY CBC & Chemistry Diagram: 04/22/18 00:05 04/22/18 00:05 <Ade Cabral - Last Filed: 04/22/18 01:49> - LABORATORY CBC & Chemistry Diagram: 04/22/18 00:05 04/22/18 00:05 - ADDITIONAL ORDERS Additional order review: Laboratory Results 04/22/18 04/22/18 00:05 00:05 Sodium 140 Potassium 4.2 Chloride 106 Carbon Dioxide 29 Anion Gap 6 L BUN 18 Creatinine 0.9 Creat Clearance w eGFR > 60 Random Glucose 84 Calcium 7.9 L Total Bilirubin 0.3 AST 78 H ALT 206 H Alkaline Phosphatase 95 Troponin I < 0.02 Total Protein 7.0 Albumin 3.2 L 04/22/18 00:05 RBC 5.43 MCV 79.6 L MCHC 33.8 RDW 18.2 H MPV 7.8 Neutrophils % 64.7 Lymphocytes % 23.8 D Monocytes % 8.6 Eosinophils % 1.7 Basophils % 1.2 - RADIOLOGY Radiology Studies Ordered: Category Date Time Status CERVICAL SPINE CT W/O CONTR [CT] Stat CT Scan 04/22/18 00:[address] WITHOUT CONTRAST [CT] Stat CT Scan 04/22/18 00:03 Taken CHEST X-RAY PORTABLE* [RAD] Stat Radiology 04/22/18 00:03 Taken <Hi Carson - Last Filed: 04/22/18 01:57> Medical Decision Making - Medical Decision Making Patient signed out by Dr. Flores. 42yo M with PMH of substance abuse complaining of chronic back pain s/p spinal sx last August Several falls recently, fell and hit head today Chest pressure for the past couple days Significant weight loss recently as well Cardiac and Infectious workup Imaging pending 04/22/18 00:11 CT C-spine FINDINGS: Status post C3-C7 laminectomy and posterior fusion. Surgical hardware is appropriately positioned. There are moderate degenerative changes. There is no fracture, subluxation or prevertebral soft tissue swelling. IMPRESSION: No fracture CT Head FINDINGS: The ventricular system is midline and nondilated. The sulcal pattern is normal for the patient's age. There is no bleed, mass, extra-axial fluid collection or mass effect. No skull fracture or skull lesion is identified. Nasal bridge fracture is noted. The visualized paranasal sinuses and mastoid air cells are clear. IMPRESSION: Nasal bridge fracture without skull fracture or intracranial hemorrhage. EKG, rate 60, QTc 420, NSR No anemia or leukocytosis. Some transaminitis noted. Tpn negative. Plan to discharge with neurology follow-up 04/22/18 01:38 <Ade Cabral - Last Filed: 04/22/18 01:49> *DC/Admit/Observation/Transfer <Ade Cabral - Last Filed: 04/22/18 01:49> - Discharge Dispostion Decision to Admit order: No <Hi Carson - Last Filed: 04/22/18 01:57> Diagnosis at time of Disposition: Fall Qualifiers: Encounter type: initial encounter Qualified Code(s): W19.XXXA - Unspecified fall, initial encounter Chest pain Qualifiers: Chest pain type: unspecified Qualified Code(s): R07.9 - Chest pain, unspecified - Discharge Dispostion Disposition: HOME Condition at time of disposition: Stable - Prescriptions Prescriptions: Albuterol Sulfate Inhaler - [Ventolin Hfa Inhaler -] 1 - 2 inh PO Q4H #1 inhaler Azithromycin [Zithromax 250mg Tablets -] 250 mg PO DAILY 5 Days #6 tablet Cyclobenzaprine HCl [Flexeril -] 10 mg PO HS #7 tablet - Referrals Referrals: Kartik Shankar MD [Staff Physician] - [facility] [place] [facility] [place] [Provider Group] - Patient Instructions Printed Discharge Instructions: Chronic Neck Pain, Cough Additional Instructions: Take zpack as prescribed for cough. Ventolin MDI as directed for the next 3-4 days. Take 2 tabs Aleve twice a day for the next 3 days and Flexeril as prescribed for neck pain. Tomorrow call to set up appointment with our clinic as well as an appointment with neurology. Return to the emergency department for any severe worsening symptoms or for any concerns.
[2018-04-22 00:56] LABS: BASO % 1.2 % (0-2.0); EOS % 1.7 % (0-4.5); HEMATOCRIT 43.2 % (35.4-49); HEMOGLOBIN 14.6 GM/dL (11.7-16.9); LYMPH % 23.8 % (8-40); MCH 26.9 pg (25.7-33.7); MCHC 33.8 g/dl (32.0-35.9); MEAN CELL VOLUME 79.6 fl (80-96); MEAN PLT VOLUME 7.8 fl (7.5-11.1); MONO % 8.6 % (3.8-10.2); NEUT % 64.7 % (42.8-82.8); PLATELET COUNT 229 K/MM3 (134-434); RBC 5.43 M/mm3 (4.00-5.60); RDW 18.2 % (11.9-15.9); WHITE BLOOD COUNT 8.3 K/mm3 (4.0-10.0)
--- NOTE | 2018-04-22 01:31 | PDOC ---
Attending Attestation - Resident Resident Name: Golden Flores - ED Attending Attestation I have performed the following: I have examined & evaluated the patient, The case was reviewed & discussed with the resident, I agree w/resident's findings & plan, Exceptions are as noted - HPI HPI: 04/22/18 01:31 Reviewed Residents HPI - Physicial Exam PE: Vitals: Triage Vital signs reviewed General Appearance: no acute distress, well nourished well developed, Head: Atraumatic, Neck: Supple;No Nucal rigidity diffuse bilateral tenderness to palpation Chest Wall: Nontender Cardiac: Regular rate and rhythym, no murmurs, no rubs, no gallops, Lungs: Clear to auscultation bilateral, good air movement bilaterally, Abdomen: Soft, non distended, normal bowel sounds, non tender to palpation Extremities: Full range of motion to all extremities, no cyanosis, clubbing, or edema Skin: Warm and dry, no rashes or lesions, no rash, no petechiae Neuro: AOX3; Cranial Nerves 2-12 grossly intact, decreased strength to left hand left upper extremity and left leg, decreased sensation to right lower extremity decreased reflexes to right lower extremity,Psych: normal mood, normal affect - Medical Decision Making 04/22/18 01:59 42 years old with multiple spinal surgeries laminectomies. Presents emergency department with one-month history of cough shortness of breath. Also with recent fall with head injury On his examination he was noted to be weak in his left arm and left leg with decreased sensation in his right lower extremity these findings are chronic since his surgeries per the patient he was diagnosed by his neurosurgeon as having myelopathy Head CT cervical spine CT here in the emergency department demonstrated no acute pathology except possibly in nasal fracture His EKG demonstrated normal sinus rhythm with no ST elevations and no T-wave inversions History of troponin was negative his heart score is 1 His respiratory examination was normal mood given 1 month history of cough and mild shortness of breath there is a concern for an atypical pneumonia he was treated with DuoNeb's in the emergency department with some improvement of symptomatology we'll treat for atypical pneumonia/bronchitis with duo nebs and azithromycin He was instructed to follow up with her clinic this week as well as with neurology in 1-2 days We'll discharge home on Z-Micah Ventolin Flexeril for musculoskeletal discomfort Findings, need for follow-up and strict return instructions discussed with patient.
[2018-04-22 01:35] LABS: ALBUMIN 3.2 g/dl (3.4-5.0); ALK PHOS 95 U/L (45-117); ANION GAP 6 MMOL/L (8-16); BILIRUBIN,TOTAL 0.3 mg/dL (0.2-1); BLOOD UREA NITROGEN 18 mg/dL (7-18); CALCIUM 7.9 mg/dL (8.5-10.1); CHLORIDE 106 mmol/L (98-107); CO2 29 mmol/L (21-32); CREATININE 0.9 mg/dL (0.55-1.3); GLUCOSE,RANDOM 84 mg/dL (74-106); POTASSIUM 4.2 mmol/L (3.5-5.1); SGOT/AST 78 U/L (15-37); SGPT/ALT 206 U/L (13-61); SODIUM 140 mmol/L (136-145)
[2018-04-22] MEDS ORDERED: ALBUTEROL SO4 2.5/IPRATROPIUM 0.5 INH SOL 3 ML VIAL.NEB. NEB ONE ×2 (01:48→02:23)
[2018-04-22] MEDS ORDERED: KETOROLAC TROMETHAMINE 30 MG/1 ML VIAL IVPUSH ONE (01:49)
[2018-04-22] MEDS ORDERED: CYCLOBENZAPRINE HCL 10 MG TABLET (FP) PO ONE (01:49)
[2018-04-22] MEDS ORDERED: KETOROLAC TROMETHAMINE 30 MG/1 ML VIAL IM ONE (02:10)
[2018-04-22] MEDS ORDERED: KETOROLAC TROMETHAMINE 30 MG/1 ML VIAL ONE (02:24)
[2018-04-22] MEDS ORDERED: CYCLOBENZAPRINE HCL 10 MG TABLET (FP) ONE (02:27)
--- NOTE | 2018-04-22 10:30 | EKG ---
Test Reason : Blood Pressure : / mmHG Vent. Rate : 060 BPM Atrial Rate : 060 BPM P-R Int : 142 ms QRS Dur : 100 ms QT Int : 420 ms P-R-T Axes : 036 060 031 degrees QTc Int : 420 ms NORMAL SINUS RHYTHM NORMAL ECG WHEN COMPARED WITH ECG OF 13-SEP-2017 14:04, NO SIGNIFICANT CHANGE WAS FOUND Confirmed by COCO STOVALL MD ([id number]) on 04/22/2018 10:30:11 AM Referred By: Confirmed By:COCO STOVALL MD
== END 2018-04-22 02:30 | disposition home or self-care (01) ==
LOC: JER 22:54
PROC: 3E0233Z Introduction of Anti-inflammatory into Muscle, Percutaneous Approach (ICD-10-PCS; principal; 2018-04-21)
PROC: 3E0333Z Introduction of Anti-inflammatory into Peripheral Vein, Percutaneous Approach (ICD-10-PCS; 2018-04-21)
DX: R07.89 Other chest pain (principal); R29.6 Repeated falls; R06.02 Shortness of breath; M54.5 Low back pain; G89.29 Other chronic pain; R63.4 Abnormal weight loss; Z68.25 Body mass index [BMI] 25.0-25.9, adult
CPT/HCPCS: 36415; 70450-TC; 71045-TC-FY; 72125-TC; 80053; 84484; 85025; 93005; 93010; 99282-25

== ENCOUNTER 2018-04-24 20:51 | Emergency (ER) | payer SELFPAY ==
[2018-04-24 20:57] VITALS: BMI 25.0
[2018-04-24] MEDS ORDERED: SODIUM CHLORIDE 1,000 ML IV STA (21:19)
--- NOTE | 2018-04-24 21:20 | PDOC ---
History of Present Illness - General Chief Complaint: Chest Pain Stated Complaint: CHEST PAIN Time Seen by Provider: 04/24/18 21:02 History Source: Patient Exam Limitations: No Limitations, Clinical Condition - History of Present Illness Initial Comments: 42 yo male with PMH Vericocele s/p repair (underwent three repairs: at ages 29, [age]), former opiate and cocaine user, extensive spinal surgery with fusions, throat nodules, unknown chest tumor, numerous athletic shoulder and knee repair surgeries, presents to the ER via private auto very confused and disoriented after a syncopal episode earlier today. He states he woke up today and everything was normal, went to the gym and worked out at then finished at 6:30 and went to [employer] to get some coffee after the gym. He states he does not remember what happened from the time he got coffee to the time he got to the ER at 9:30. He states he woke up and was lying down outside in the snow freezing cold and all of his clothing got soaked. Upon arrival to the ER his b/ l upper extremities were red and cold to touch. The patient believes he passed out and feel down but does not remember the details. He denies any prodromal symptoms of lightheadedness, palpitations, pallor, increased heart rate or any other symptoms prior to his fall. He states he did not lose control of his bowel or bladder during the event. He admits to not hydrating well today and syas that he feels dry. He denies taking any drugs today but admits to a hx of cocaine and heroine usage in the past. He endorses diffuse pain all over his body which he says is not new and that he is always in pain ever since he had his back surgeries. He was recently seen in this ER 3 days prior and given prescription medications for Cyclobenzaprine, albuterol, and a Z pack. He admits that he took those meds today as he was instructed to. He denies recent fevers, chills, infections, headache, blurry vision, abdominal pain, diarrhea, constipation, dysuria, frequency, urgency. PCP: None PSH: resection of throat nodules, R knee arthroscopy, two elbow surgeries, 2 shoulder repairs - one for a bone spur, multiple spinal laminectomies and fusion repairs. 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 Smoking: since has smoked socially "a few cigarettes" Alcohol: social drinker Drugs: denies current use. states he used cocaine and heroine in college Family Hx: mother- breast CA, father- prostate CA Allergies: Baclofen- angioedema, Penicillin- dx in childhood, does not know rxn it causes Past History - Past Medical History Allergies/Adverse Reactions: Allergies Allergy/AdvReac Type Severity Reaction Status Date / Time baclofen Allergy Severe Difficulty Verified 04/24/18 20:55 Breathing Penicillins Allergy unknown Verified 04/24/18 20:55 Home Medications: Ambulatory Orders Gabapentin [Neurontin -] 1,200 mg PO TID 09/13/17 Quetiapine Fumarate [Seroquel -] 25 mg PO HS 04/14/18 Naloxone HCl [Narcan] 4 mg NS ASDIR PRN 04/16/18 Albuterol Sulfate Inhaler - [Ventolin Hfa Inhaler -] 1 - 2 inh PO QID #1 inhaler 04/22/18 Azithromycin 250 mg PO DAILY #6 tablet 04/22/18 Cyclobenzaprine HCl [Flexeril -] 10 mg PO HS #7 tablet 04/22/18 Anemia: No Asthma: No Cancer: No Cardiac Disorders: No CVA: No COPD: No CHF: No Dementia: No Diabetes: No GI Disorders: No Disorders: No HTN: No Hypercholesterolemia: No Kidney Stones: No Liver Disease: No Seizures: No Thyroid Disease: No - Surgical History Abdominal Surgery: No Appendectomy: No Cardiac Surgery: No Cholecystectomy: No Lung Surgery: Yes (tumor removal (2016)) Neurologic Surgery: Yes (neck/back sx in 08/14/2017) Orthopedic Surgery: Yes (R KNEE SX-1989 - arthroscopy) - Reproductive History Testicular Surgery: No - Suicide/Smoking/Psychosocial Hx Smoking History: Unknown if ever smoked Have you smoked in the past 12 months: No Number of Cigarettes Smoked Daily: 2 Information on smoking cessation initiated: No 'Breaking Loose' booklet given: 04/14/18 Hx Alcohol Use: No Drug/Substance Use Hx: No Substance Use Type: Heroin, Opiates Hx Substance Use Treatment: Yes (07/2017) Cardiac Specific PMH - Complaint Specific PMHX Pacemaker: No Review of Systems - Review of Systems Able to Perform ROS?: Yes Comments:: CONSTITUTIONAL: Absent: fever, no chills, no fatigue EYES: Absent: visual changes ENT: Absent: ear pain, no sore throat CARDIOVASCULAR: Present: Chest pain, syncope Absent: no palpitations RESPIRATORY: Absent: cough, no SOB GI: Absent: abdominal pain, no nausea, no vomiting, no constipation, no diarrhea GENITOURINARY: Absent: dysuria, no frequency, no hematuria MUSKULOSKELETAL: Present: Back pain Absent: no arthralgia, no myalgia SKIN: Present: Rash NEURO: Absent: headache *Physical Exam - Vital Signs Last Vital Signs Temp Pulse Resp BP Pulse Ox 98.3 F 79 17 122/72 98 04/25/18 01:25 04/25/18 01:25 04/25/18 01:25 04/25/18 01:25 04/25/18 01:25 - Physical Exam Comments: GENERAL: Well-appearing, well-nourished. No apparent distress. HEENT: Normocephalic, atraumatic. PERRL, EOM intact. CARDIOVASCULAR: Normal S1, S2. Regular rate and rhythm. PULMONARY: No evidence of respiratory distress. Lungs clear to auscultation bilaterally. No wheezing, rales or rhonchi. ABDOMEN: Soft, non-distended, non-tender. EXTREMITIES: Normal ROM in all four extremities. No gross deformities. SKIN: There are diffuse hives on both arms. Warm, dry. NEUROLOGICAL: No focal neurological deficits. Moderate Sedation - Procedure Monitoring Vital Signs: Procedure Monitoring Vital Signs Temperature 98.3 F 04/25/18 01:25 Pulse Rate 79 04/25/18 01:25 Respiratory Rate 17 04/25/18 01:25 Blood Pressure 122/72 04/25/18 01:25 O2 Sat by Pulse Oximetry (%) 98 04/25/18 01:25 ED Treatment Course - LABORATORY CBC & Chemistry Diagram: 04/24/18 21:27 04/24/18 21:27 - ADDITIONAL ORDERS Additional order review: Laboratory Results 04/24/18 04/24/18 04/24/18 22:00 22:00 21:27 PT with INR INR PTT (Actin FS) Sodium Potassium Chloride Carbon Dioxide Anion Gap BUN Creatinine Creat Clearance w eGFR Random Glucose Calcium Magnesium Total Bilirubin AST ALT Alkaline Phosphatase Creatine Kinase Creatine Kinase Index CK-MB (CK-2) Troponin I Total Protein Albumin Urine Color Ltyellow Urine Appearance Clear Urine pH 7.0 Ur Specific [place] 1.016 Urine Protein Negative Urine Glucose (UA) Negative Urine Ketones Negative Urine Blood Negative Urine Nitrite Negative Urine Bilirubin Negative Urine Urobilinogen Negative Ur Leukocyte Esterase 1+ H Urine WBC (Auto) 1 Urine RBC (Auto) <1 Urine Mucus Rare Opiates Screen Positive A* Methadone Screen Negative Barbiturate Screen Negative Phencyclidine Screen Negative Ur Amphetamines Screen Negative MDMA (Ecstasy) Screen Negative Benzodiazepines Screen Positive A* Cocaine Screen Negative U Marijuana (THC) Screen Negative Blood Type O POSITIVE Antibody Screen Negative 04/24/18 04/24/18 04/24/18 21:27 21:27 21:27 PT with INR 11.00 INR 0.93 PTT (Actin FS) 31.4 Sodium 138 Potassium 3.8 Chloride 101 Carbon Dioxide 27 Anion Gap 9 BUN 17 Creatinine 1.0 Creat Clearance w eGFR > 60 Random Glucose 72 L Calcium 8.4 L Magnesium 1.7 L Total Bilirubin 0.6 AST 58 H ALT 185 H Alkaline Phosphatase 107 Creatine Kinase 246 Creatine Kinase Index 1.9 CK-MB (CK-2) 4.8 H Troponin I < 0.02 Total Protein 7.8 Albumin 4.0 Urine Color Urine Appearance Urine pH Ur Specific [place] Urine Protein Urine Glucose (UA) Urine Ketones Urine Blood Urine Nitrite Urine Bilirubin Urine Urobilinogen Ur Leukocyte Esterase Urine WBC (Auto) Urine RBC (Auto) Urine Mucus Opiates Screen Methadone Screen Barbiturate Screen Phencyclidine Screen Ur Amphetamines Screen MDMA (Ecstasy) Screen Benzodiazepines Screen Cocaine Screen U Marijuana (THC) Screen Blood Type Antibody Screen 04/24/18 21:27 RBC 5.78 H MCV 79.0 L MCHC 33.7 RDW 18.6 H MPV 7.6 Neutrophils % 73.2 Lymphocytes % 16.8 D Monocytes % 7.5 Eosinophils % 1.4 Basophils % 1.1 - RADIOLOGY Radiology Studies Ordered: Category Date Time Status HEAD CT WITHOUT CONTRAST [CT] Stat CT Scan 04/24/18 22:31 Taken CHEST PA & LAT [RAD] Stat Radiology 04/24/18 21:19 Taken - Medications Given in the ED: ED Medications Discontinued Medications Generic Name Dose Route Start Last Admin Trade Name Freq PRN Reason Stop Dose Admin Diphenhydramine HCl 50 mg 04/24/18 22:35 04/24/18 23:33 Benadryl Injection - IVPUSH 04/24/18 22:36 Not Given ONCE ONE Sodium Chloride 1,000 mls @ 1,000 mls/hr 04/24/18 21:19 04/24/18 21:28 Normal Saline - IV 04/24/18 22:18 1,000 mls/hr ASDIR STA Administration Lorazepam 2 mg 04/24/18 21:48 04/24/18 21:53 Ativan Injection - IVPUSH 04/24/18 21:49 2 mg ONCE ONE Administration Magnesium Oxide 800 mg 04/25/18 01:05 04/25/18 01:23 Mag-Ox - PO 04/25/18 01:06 800 mg ONCE ONE Administration Medical Decision Making - Medical Decision Making 42 yo male with PMH Vericocele s/p repair (underwent three repairs: at ages 29, [age]), former opiate and cocaine user, extensive spinal surgery with fusions, throat nodules, unknown chest tumor, numerous athletic shoulder and knee repair surgeries, presents to the ER via private auto very confused and disoriented after a syncopal episode earlier today. VS: Tachycardic, tachypneic. - Hives? on arms - Possibly erythema multiforme from recent viral infection. - Dry oral mucosa DDx IBNLT: Syncope - arrythmia, medication s/e, Drug use, allergic reaction, anaphylaxis, withdrawal. Plan: Labs, Urine, Tox, EKG, CXR, Head CT, IV hydration, benadryl, re-assess. U-tox positive for benzo's and opiates. EKG: Normal Sinus Labs unremarkable other than mild magnesium deficiency. Will replete orally. Head CT and CXR clean with no signs of acute pathology Patient feels much better after 2L of NS. He could have very well been dehydrated from overexerting himself at the gym. Will DC after IV hydration. *DC/Admit/Observation/Transfer Diagnosis at time of Disposition: Dehydration - Discharge Dispostion Disposition: HOME Condition at time of disposition: Improved Decision to Admit order: No - Referrals Referrals: [facility] [place] [facility] [place] [Provider Group] - Patient Instructions Printed Discharge Instructions: DI for Dehydration -- Adult Additional Instructions: You came into the ER very dehydrated, and your mouth looked very dry. We gave you 2 liters of IV hydration and you felt and looked much better. It is extremely important for you to go to your neurologist appointment as planned. It is also extremely important that you call up the primary care doctor we are giving you a number for and set up an appointment so that you have a [facility] care doctor and can be followed regularly. Come back to the ER if you fall down, pass out, have chest pain, start vomiting , or have any other new or worsening concerns. Thank you for coming to the [facility] ER. We hope you feel better soon! Print Language: HONG KONGER - Post Discharge Activity
[2018-04-24 21:38] LABS: BASO % 1.1 % (0-2.0); EOS % 1.4 % (0-4.5); HEMATOCRIT 45.7 % (35.4-49); HEMOGLOBIN 15.4 GM/dL (11.7-16.9); LYMPH % 16.8 % (8-40); MCH 26.6 pg (25.7-33.7); MCHC 33.7 g/dl (32.0-35.9); MEAN PLT VOLUME 7.6 fl (7.5-11.1); MONO % 7.5 % (3.8-10.2); NEUT % 73.2 % (42.8-82.8); PLATELET COUNT 239 K/MM3 (134-434); RBC 5.78 M/mm3 (4.00-5.60); RDW 18.6 % (11.9-15.9); WHITE BLOOD COUNT 11.1 K/mm3 (4.0-10.0)
[2018-04-24] MEDS ORDERED: LORazepam 2 MG/ML SDV VIAL ONE (21:50)
[2018-04-24 21:56] LABS: INR 0.93 (0.83-1.09)
--- NOTE | 2018-04-24 22:05 | PDOC ---
Attending Attestation - Resident Resident Name: Hair Ambrosio - ED Attending Attestation I have performed the following: I have examined & evaluated the patient, The case was reviewed & discussed with the resident, I agree w/resident's findings & plan, Exceptions are as noted - HPI HPI: 04/24/18 22:01 42 yo male h/o polysubstance abuse ( etoh, narcotics) h/o prior cocain use here c/o syncope. pt states he was at [employer], and next thing he knew he was in the snow. unsure what happened. states he walked from [employer] to her . states he took narcotic earlier today. denies recent cocain use, and no etoh use. c/o chest pain and additional pain cramping in legs and back. no new weakness or numbness. pt states his recent detox was for etoh , however chart review states narcotic addition,. - Physicial Exam PE: 04/24/18 22:03 awake alert lungs clear bilaterally heart rrr no mrg abd soft nt nd. ext wwp no edema. no calf tendernss. sensation intact bilaterally. nuero alert oriented x 3. - Medical Decision Making 04/24/18 22:03 pt h/o polysubstance abuse, recently discharged from detox, here with several complaints o pain and syncope plan r/o intox, labs r/o electrolyte abnoramlity acs, or infection. plan cxr ekg labs u tox. will give benzos for spasm. pending results will reassess. pt states has had a holter monitor in the past. 04/25/18 01:[address] unremarkable. feels improved after given ativan. amaris mckeon home with nuerology fu. labs unremarkable. narcotics positive and benzo positive. pt has fu with neurology. hydrated wit normal saline. given magnesium for hypomagnesemia.
[2018-04-24 22:11] LABS: URINE APPEARANCE CLEAR; URINE BILIRUBIN NEGATIVE (<2.0 mg/dL); URINE COLOR LTYELLOW; URINE GLUCOSE (UA) NEGATIVE (NEGATIVE); URINE KETONE NEGATIVE (NEGATIVE); URINE LEUK ESTERASE 1+ (NEGATIVE); URINE NITRITE NEGATIVE (NEGATIVE); URINE PROTEIN NEGATIVE (NEGATIVE); URINE UROBILINOGEN NEGATIVE mg/dL (0.2-1.0)
[2018-04-24 22:14] LABS: ALK PHOS 107 U/L (45-117); ANION GAP 9 MMOL/L (8-16); BILIRUBIN,TOTAL 0.6 mg/dL (0.2-1); BLOOD UREA NITROGEN 17 mg/dL (7-18); CALCIUM 8.4 mg/dL (8.5-10.1); CHLORIDE 101 mmol/L (98-107); CO2 27 mmol/L (21-32); GLUCOSE,RANDOM 72 mg/dL (74-106); MAGNESIUM 1.7 mg/dL (1.8-2.4); POTASSIUM 3.8 mmol/L (3.5-5.1); SGOT/AST 58 U/L (15-37); SGPT/ALT 185 U/L (13-61); SODIUM 138 mmol/L (136-145); TOT PROT 7.8 g/dl (6.4-8.2)
[2018-04-24 22:19] LABS: URINE MUCUS RARE
[2018-04-24 23:00] LABS: COCAINE, UR NEGATIVE ng/ml (CUTOFF=300); METHADONE, UR NEGATIVE ng/ml (CUTOFF=300); PHENCYCLIDINE,URINE NEGATIVE ng/ml (CUTOFF=25); URINE BARBITURATES NEGATIVE ng/ml (CUTOFF=200)
[2018-04-24 23:01] LABS: URINE AMPHETAMINES NEGATIVE ng/ml (CUTOFF=500)
[2018-04-24 23:02] LABS: OPIATES, URI POSITIVE ng/ml (CUTOFF=300); URINE BENZODIAZEPINES POSITIVE ng/ml (CUTOFF=200)
[2018-04-25] MEDS ORDERED: MAGNESIUM OXIDE 400 MG TABLET (FP) PO ONE (01:05)
[2018-04-25] MEDS ORDERED: MAGNESIUM OXIDE 400 MG TABLET (FP) ONE (01:16)
[2018-04-25 01:27] VITALS: BP 122/72; PULSE 79; TEMP 98.3
--- NOTE | 2018-04-25 11:57 | EKG ---
Test Reason : Blood Pressure : / mmHG Vent. Rate : 096 BPM Atrial Rate : 096 BPM P-R Int : 134 ms QRS Dur : 096 ms QT Int : 364 ms P-R-T Axes : 074 064 043 degrees QTc Int : 459 ms POOR DATA QUALITY, INTERPRETATION MAY BE ADVERSELY AFFECTED NORMAL SINUS RHYTHM NORMAL ECG WHEN COMPARED WITH ECG OF 22-APR-2018 00:33, VENT. RATE HAS INCREASED BY 36 BPM Confirmed by KAUR WIGGINS MD ([id number]) on 04/25/2018 11:56:48 AM Referred By: Confirmed By:KAUR WIGGINS MD
== END 2018-04-25 01:27 | disposition home or self-care (01) ==
LOC: JER 20:51
PROC: 3E0337Z Introduction of Electrolytic and Water Balance Substance into Peripheral Vein, Percutaneous Approach (ICD-10-PCS; principal; 2018-04-24)
PROC: 3E033GC Introduction of Other Therapeutic Substance into Peripheral Vein, Percutaneous Approach (ICD-10-PCS; 2018-04-24)
DX: E86.0 Dehydration (principal); E83.42 Hypomagnesemia
CPT/HCPCS: 36415; 70450-TC; 71046-TC-FY; 80053; 80307; 81003; 81015; 82550; 82553; 83735; 84484; 85025; 85610; 85730; 86850; 86900; 86901; 93005; 93010; 99283-25; J7030

== ENCOUNTER 2018-04-27 16:01 | Inpatient (IN) | payer SELFPAY ==
[2018-04-27 16:20] VITALS: BMI 25.2
--- NOTE | 2018-04-27 18:40 | HP ---
COWS - Scale Resting Pulse: 1= GA 81-100 Sweatin= Chills/Flushing Restless Observation: 1= Difficult to Sit Still Pupil Size: 0= Normal to Room Light Bone or Joint Aches: 2= Severe Diffuse Aches Runny Nose/ Eye Tearin= Runny Nose/Eyes GI Upset > 30mins: 2= Nausea/Diarrhea Tremor Observation: 2= Slight Tremor Visible Yawning Observation: 1= 1-2x During Session Anxiety or Irritability: 2=Irritable/Anxious Goose Flesh Skin: 3=Piloerection COWS Score: 17 CIWA Score - Admission Criteria [facility] Guidelines: Admission for Medically Managed Detox: Requires at least one of the followin. CIWA greater than 12 2. Seizures within the past 24 hours 3. Delirium tremens within the past 24 hours 4. Hallucinations within the past 24 hours 5. Acute intervention needed for co occurring medical disorder 6. Acute intervention needed for co occurring psychiatric disorder 7. Severe withdrawal that cannot be handled at a lower level of care (continued vomiting, continued diarrhea, abnormal vital signs) requiring intravenous medication and/or fluids 8. Admission ROS [facility] Chief Complaint: " I just want to take my will back" Allergies/Adverse Reactions: Allergies Allergy/AdvReac Type Severity Reaction Status Date / Time baclofen Allergy Severe Difficulty Verified 04/24/18 20:55 Breathing Penicillins Allergy unknown Verified 04/24/18 20:55 History of Present Illness: 42 year old man recently discharged from [facility] detox program in early April returns for treatment. Patient reports his stays are self paid, and he sees the need to detox again with goal of going into rehab. He reports last rehab was a long time ago. Exam Limitations: No Limitations - Ebola screening Have you traveled outside of the country in the last 21 days: No Have you had contact with anyone from an Ebola affected area: No Have you been sick,other than usual withdrawal symptoms: No Do you have a fever: No - Review of Systems Constitutional: Chills, Loss of Appetite, Weakness EENT: reports: Nose Congestion Respiratory: reports: Cough, SOB with Exertion Cardiac: reports: Lightheadedness GI: reports: Nausea, Poor Appetite, Abdominal cramping : reports: No Symptoms Reported Musculoskeletal: reports: Back Pain, Joint Pain, Muscle Pain, Muscle Weakness Integumentary: reports: Flushing Neuro: reports: Headache, Numbness, Seizure, Tremors, Weakness Endocrine: reports: No Symptoms Reported Hematology: reports: No Symptoms Reported Psychiatric: reports: Anxious, Depressed Other Systems: Reviewed and Negative Patient History - Patient Medical History Hx Anemia: No Hx Asthma: No Hx Chronic Obstructive Pulmonary Disease (COPD): No Hx Cancer: No Hx Cardiac Disorders: No Hx Congestive Heart Failure: No Hx Hypertension: No Hx Hypercholesterolemia: No Hx Pacemaker: No HX Cerebrovascular Accident: No Hx Seizures: No Hx Dementia: No Hx Diabetes: No Hx Gastrointestinal Disorders: No Hx Liver Disease: No Hx Genitourinary Disorders: No Hx Sexually Transmitted Disorders: No Hx Renal Disease (ESRD): No Hx Thyroid Disease: No Hx Human Immunodeficiency Virus (HIV): No Hx Hepatitis C: No Hx Depression: Yes (Not on meds) Hx Suicide Attempt: No Hx Bipolar Disorder: No Hx Schizophrenia: No - Patient Surgical History Past Surgical History: Yes Hx Neurologic Surgery: Yes (neck/back sx in July of 2017) Hx Cataract Extraction: No Hx Cardiac Surgery: No Hx Lung Surgery: Yes (tumor removal (2016)) Hx Breast Surgery: No Hx Breast Biopsy: No Hx Abdominal Surgery: No Hx Appendectomy: No Hx Cholecystectomy: No Hx Genitourinary Surgery: Yes (Varicocele) Hx Section: No Hx Orthopedic Surgery: Yes (R knee arthroscopy in 1989) Anesthesia Reaction: No - PPD History Previous Implant?: Yes Documented Results: Negative w/proof Implanted On Prior R Admission?: Yes Date: 08/01/17 Results: 0 mm PPD to be Administered?: No - Reproductive History Patient is a Female of Child Bearing Age (11 -55 yrs old): No - Smoking Cessation Smoking history: Current some day smoker Have you smoked in the past 12 months: No Aproximately how many cigarettes per day: 2 Hx Chewing Tobacco Use: No Initiated information on smoking cessation: Yes 'Breaking Loose' booklet given: 04/27/18 - Substance & Tx. History Hx Alcohol Use: No Hx Substance Use: Yes Substance Use Type: Heroin, Tranquilizers Hx Substance Use Treatment: Yes - Substances Abused Alprazolam (Xanax) Route: Oral Frequency: Daily Amount used: 8mg Age of first use: 33 Date of Last Use: 04/26/18 Heroin Route: Inhalation Frequency: Daily Amount used: 10-30 bags Age of first use: 33 Date of Last Use: 04/26/18 Family Disease History - Family Disease History Family Disease History: Diabetes: Father (prostate cancer ), CA: Father, Mother (breast cancer, ) Admission Physical Exam [facility] - Vital Signs Vital Signs: Vital Signs - 24 hr 04/27/18 16:18 Temperature 97.5 F L Pulse Rate 81 Respiratory 18 Rate Blood Pressure 128/72 - Physical General Appearance: Yes: No Apparent Distress HEENTM: Yes: EOMI, Hearing grossly Normal, Normocephalic, Normal Voice, JESSICA, Pharynx Normal Respiratory: Yes: Chest Non-Tender, Lungs Clear, Normal Breath Sounds, No Respiratory Distress, No Accessory Muscle Use Neck: Yes: No masses,lesions,Nodules, Supple Breast: Yes: Breast Exam Deferred Cardiology: Yes: Regular Rhythm, Regular Rate, S1, S2 Abdominal: Yes: Normal Bowel Sounds, Non Tender, Soft Genitourinary: Yes: Within Normal Limits Back: Yes: Surgical Scar Musculoskeletal: Yes: Gait Steady, Back pain, Muscle Pain, Muscle weakness Extremities: Yes: Tremors Neurological: Yes: electrical mechanic II-XII NML intact, Fully Oriented, Alert, Normal Mood/ Affect, Normal Response Integumentary: Yes: Cold, Clammy Lymphatic: Yes: Within Normal Limits - Diagnostic (1) Opioid dependence with withdrawal Current Visit: Yes Status: Acute (2) Sedative hypnotic or anxiolytic dependence Current Visit: Yes Status: Acute (3) Cervical disc disease Current Visit: No Status: Chronic (4) Insomnia Current Visit: No Status: Chronic Qualifiers: Insomnia type: unspecified Qualified Code(s): G47.00 - Insomnia, unspecified Cleared for Admission [facility] - Detox or Rehab [facility] Level of Care: Medically Managed Detox Regimen/Protocol: Methadone/Valium [facility] Breath Alcohol Content Breath Alcohol Content: 0 Urine Drug Screen - Results Drug Screen Negative: No Urine Drug Screen Results: OPI-Opiates, BZO-Benzodiazepines, FEN-Fentanyl Inpatient Rehab Admission - Rehab Decision to Admit Inpatient rehab admission?: No
[2018-04-27] MEDS ORDERED: P-EPHED 60MG/TRIPROLIDI 2.5MG TABLET PO PRN (18:47)
[2018-04-27] MEDS ORDERED: guaiFENesin/D-METHORPHAN HB 10 ML UNIT-DOSE CUPS PO PRN (18:47)
[2018-04-27] MEDS ORDERED: MAG HYDROX/AL HYDROX/SIMETH 30 ML UNIT-DOSE CUP PO PRN (18:47)
[2018-04-27] MEDS ORDERED: IBUPROFEN 400 MG TABLET (FP) PO PRN (18:47)
[2018-04-27] MEDS ORDERED: MAGNESIUM CITRATE 300 ML BOTTLE PO PRN (18:47)
[2018-04-27] MEDS ORDERED: LOPERAMIDE HCL 2 MG CAPSULE PO PRN (18:47)
[2018-04-27] MEDS ORDERED: MAGNESIUM HYDROX 2400MG/30ML ORAL SUSPENSION 30 ML CUP PO PRN (18:47)
[2018-04-27] MEDS ORDERED: ACETAMINOPHEN 325 MG TABLET (FP) PO PRN (18:47)
[2018-04-27] MEDS ORDERED: MENTHOL/PHENOL 1 EACH UD MM PRN (18:47)
[2018-04-27] MEDS ORDERED: diazePAM 5 MG TABLET PO ONE (19:45)
[2018-04-27] MEDS ORDERED: METHADONE HCL 10 MG TABLET (FOR DETOX USE ONLY) PO ONE ×2 (19:45→23:00)
[2018-04-27] MEDS ORDERED: QUEtiapine FUMARATE 25 MG TABLET (FP) PO SCH (22:00)
[2018-04-27] MEDS ORDERED: MELATONIN 5 MG TABLETS PO PRN (22:00)
[2018-04-27] MEDS: diazePAM 5 MG TABLET PO SCH (22:32)
[2018-04-27] MEDS: THIAMINE HCL 100 MG TABLET (FP) PO SCH (22:32)
[2018-04-28] MEDS: diazePAM 5 MG TABLET PO SCH ×3 (05:16→22:09)
[2018-04-28] MEDS: diazePAM 5 MG TABLET PO PRN ×2 (08:37→18:31)
[2018-04-28] MEDS ORDERED: METHADONE HCL 10 MG TABLET (FOR DETOX USE ONLY) PO SCH (10:00)
[2018-04-28] MEDS: PRENATAL VITAMINS W/ FOLIC ACID TABLET (FP) PO SCH (10:18)
[2018-04-28 10:50] LABS: ALBUMIN 3.3 g/dl (3.4-5.0); ALK PHOS 85 U/L (45-117); ANION GAP 4 MMOL/L (8-16); BLOOD UREA NITROGEN 14 mg/dL (7-18); CALCIUM 8.2 mg/dL (8.5-10.1); CHLORIDE 102 mmol/L (98-107); CO2 32 mmol/L (21-32); CREATININE 0.9 mg/dL (0.55-1.3); GLUCOSE,RANDOM 84 mg/dL (74-106); SGOT/AST 41 U/L (15-37); SGPT/ALT 107 U/L (13-61); SODIUM 138 mmol/L (136-145); TOT PROT 6.6 g/dl (6.4-8.2)
[2018-04-28 10:59] LABS: HEMATOCRIT 40.5 % (35.4-49); HEMOGLOBIN 13.5 GM/dL (11.7-16.9); MCH 26.5 pg (25.7-33.7); MCHC 33.4 g/dl (32.0-35.9); MEAN CELL VOLUME 79.4 fl (80-96); MEAN PLT VOLUME 8.1 fl (7.5-11.1); PLATELET COUNT 217 K/MM3 (134-434); RBC 5.11 M/mm3 (4.00-5.60); RDW 19.1 % (11.9-15.9); WHITE BLOOD COUNT 5.2 K/mm3 (4.0-10.0)
--- NOTE | 2018-04-28 11:09 | PN ---
[facility] CIWA - CIWA Score Nausea/Vomitin-Mild Nausea/No Vomiting Muscle Tremors: 3 Anxiety: 2 Agitation: 2 Paroxysmal Sweats: 1-Minimal Palms Moist Orientation: 1-Uncertain about Date Tacttile Disturbances: 0-None Auditory Disturbances: 0-None Visual Disturbances: 0-None Headache: 2-Mild CIWA-Ar Total Score: 12 [facility] COWS - Scale Resting Pulse: 0= ID 80 or Below Sweatin= Chills/Flushing Restless Observation: 0= Sits Still Pupil Size: 0= Normal to Room Light Bone or Joint Aches: 2= Severe Diffuse Aches Runny Nose/ Eye Tearin= Nasal Congestion GI Upset > 30mins: 1= Stomach Cramp Tremor Observation of Outstretched Hands: 1= Tremor [place], Not Seen Yawning Observation: 1= 1-2x During Session Anxiety or Irritability: 1=Feels Anxious/Irritable Goose Flesh Skin: 0=Smooth Skin COWS Score: 8 [facility] Progress Note (SOAP) Subjective: body aches stuffy nose sore throat tremor mild erythema with slight swell no exudates denies trouble swallowing no trouble breathing Objective: 04/28/18 11:07 Vital Signs Temperature 96.9 F L 04/28/18 09:20 Pulse Rate 90 04/28/18 09:20 Respiratory Rate 18 04/28/18 09:20 Blood Pressure 107/68 04/28/18 09:20 O2 Sat by Pulse Oximetry (%) Laboratory Last Values WBC 5.2 K/mm3 (4.0-10.0) 04/28/18 07:50 RBC 5.11 M/mm3 (4.00-5.60) 04/28/18 07:50 Hgb 13.5 GM/dL (11.7-16.9) 04/28/18 07:50 Hct 40.5 % (35.4-49) 04/28/18 07:50 MCV 79.4 fl (80-96) L 04/28/18 07:50 MCH 26.5 pg (25.7-33.7) 04/28/18 07:50 MCHC 33.4 g/dl (32.0-35.9) 04/28/18 07:50 RDW 19.1 % (11.9-15.9) H 04/28/18 07:50 Plt Count 217 K/MM3 (134-434) 04/28/18 07:50 MPV 8.1 fl (7.5-11.1) 04/28/18 07:50 Sodium 138 mmol/L (136-145) 04/28/18 07:50 Potassium 4.0 mmol/L (3.5-5.1) 04/28/18 07:50 Chloride 102 mmol/L (98-107) 04/28/18 07:50 Carbon Dioxide 32 mmol/L (21-32) 04/28/18 07:50 Anion Gap 4 MMOL/L (8-16) L 04/28/18 07:50 BUN 14 mg/dL (7-18) 04/28/18 07:50 Creatinine 0.9 mg/dL (0.55-1.3) 04/28/18 07:50 Creat Clearance w eGFR > 60 (>60) 04/28/18 07:50 Random Glucose 84 mg/dL (74-106) 04/28/18 07:50 Calcium 8.2 mg/dL (8.5-10.1) L 04/28/18 07:50 Total Bilirubin 1.0 mg/dL (0.2-1) 04/28/18 07:50 AST 41 U/L (15-37) H 04/28/18 07:50 ALT 107 U/L (13-61) H 04/28/18 07:50 Alkaline Phosphatase 85 U/L (45-117) 04/28/18 07:50 Total Protein 6.6 g/dl (6.4-8.2) 04/28/18 07:50 Albumin 3.3 g/dl (3.4-5.0) L 04/28/18 07:50 lab noted Assessment: 04/28/18 11:08 withdrawal sx pharyngitis 04/28/18 11:08 Plan: continue detox begin biaxin 250 mg bid po
[2018-04-28] MEDS: CLARITHROMYCIN 250 MG TABLET PO SCH ×2 (12:46→22:09)
[2018-04-28] MEDS ORDERED: QUEtiapine FUMARATE 25 MG TABLET (FP) PO ONE (22:00)
[2018-04-28] MEDS: THIAMINE HCL 100 MG TABLET (FP) PO SCH (22:09)
[2018-04-29] MEDS: diazePAM 5 MG TABLET PO PRN ×3 (05:05→18:28)
--- NOTE | 2018-04-29 09:37 | PN ---
[facility] CIWA - CIWA Score Nausea/Vomitin-No Nausea/No Vomiting Muscle Tremors: 2 Anxiety: 3 Agitation: 2 Paroxysmal Sweats: 1-Minimal Palms Moist Orientation: 0-Oriented Tacttile Disturbances: 0-None Auditory Disturbances: 0-None Visual Disturbances: 0-None Headache: 0-None Present CIWA-Ar Total Score: 8 BHS COWS - Scale Resting Pulse: 0= CT 80 or Below Sweatin= Chills/Flushing Restless Observation: 0= Sits Still Pupil Size: 0= Normal to Room Light Bone or Joint Aches: 1= Mild Discomfort Runny Nose/ Eye Tearin= Nasal Congestion GI Upset > 30mins: 1= Stomach Cramp Tremor Observation of Outstretched Hands: 1= Tremor [place], Not Seen Yawning Observation: 0= None Anxiety or Irritability: 1=Feels Anxious/Irritable Goose Flesh Skin: 0=Smooth Skin COWS Score: 6 S Progress Note (SOAP) Subjective: anxiety restlessness tremor sweating poor concentration Objective: 04/29/18 09:39 Vital Signs Temperature 97.5 F L 04/29/18 06:26 Pulse Rate 67 04/29/18 06:26 Respiratory Rate 18 04/29/18 06:30 Blood Pressure 101/54 L 04/29/18 06:26 O2 Sat by Pulse Oximetry (%) Laboratory Last Values WBC 5.2 K/mm3 (4.0-10.0) 04/28/18 07:50 RBC 5.11 M/mm3 (4.00-5.60) 04/28/18 07:50 Hgb 13.5 GM/dL (11.7-16.9) 04/28/18 07:50 Hct 40.5 % (35.4-49) 04/28/18 07:50 MCV 79.4 fl (80-96) L 04/28/18 07:50 MCH 26.5 pg (25.7-33.7) 04/28/18 07:50 MCHC 33.4 g/dl (32.0-35.9) 04/28/18 07:50 RDW 19.1 % (11.9-15.9) H 04/28/18 07:50 Plt Count 217 K/MM3 (134-434) 04/28/18 07:50 MPV 8.1 fl (7.5-11.1) 04/28/18 07:50 Sodium 138 mmol/L (136-145) 04/28/18 07:50 Potassium 4.0 mmol/L (3.5-5.1) 04/28/18 07:50 Chloride 102 mmol/L (98-107) 04/28/18 07:50 Carbon Dioxide 32 mmol/L (21-32) 04/28/18 07:50 Anion Gap 4 MMOL/L (8-16) L 04/28/18 07:50 BUN 14 mg/dL (7-18) 04/28/18 07:50 Creatinine 0.9 mg/dL (0.55-1.3) 04/28/18 07:50 Creat Clearance w eGFR > 60 (>60) 04/28/18 07:50 Random Glucose 84 mg/dL (74-106) 04/28/18 07:50 Calcium 8.2 mg/dL (8.5-10.1) L 04/28/18 07:50 Total Bilirubin 1.0 mg/dL (0.2-1) 04/28/18 07:50 AST 41 U/L (15-37) H 04/28/18 07:50 ALT 107 U/L (13-61) H 04/28/18 07:50 Alkaline Phosphatase 85 U/L (45-117) 04/28/18 07:50 Total Protein 6.6 g/dl (6.4-8.2) 04/28/18 07:50 Albumin 3.3 g/dl (3.4-5.0) L 04/28/18 07:50 RPR Titer Nonreactive (NONREACTIVE) 04/28/18 07:50 lab noted Assessment: 04/29/18 09:39 withdrawal sx Plan: continue benzo and opiate detox
[2018-04-29] MEDS: PRENATAL VITAMINS W/ FOLIC ACID TABLET (FP) PO SCH (10:27)
[2018-04-29] MEDS: METHADONE HCL 5 MG TABLET (FOR DETOX USE ONLY) PO SCH (10:27)
[2018-04-29] MEDS: diazePAM 5 MG TABLET PO SCH ×2 (10:27→22:28)
[2018-04-29] MEDS: CLARITHROMYCIN 250 MG TABLET PO SCH ×2 (10:27→22:30)
[2018-04-29] MEDS: THIAMINE HCL 100 MG TABLET (FP) PO SCH (22:28)
--- NOTE | 2018-04-29 23:20 | PN ---
[facility] Progress Note Note: Psychiatry Attending's on-call note : Called to enter order for seroquel. Complaint : insomnia. Chart reviewed. Spoke to Mr Crissotomo via telephone. He states that he has been prescribed seroquel for five years. Without any occurrence of adverse effects. Medicated for past two nights. I have discussed side effects/benefits with the patient. I have made him aware of drug-drug interaction with clarithromycin (biaxin). Mr Crisostomo replied that he understood my explanation of the risks. Agreed to receive a reduced dose. Seroquel 25 mg po hs. First dose NOW. Ordered. Referring nurse witnessed the telephone conversation.
[2018-04-29] MEDS: QUEtiapine FUMARATE 25 MG TABLET (FP) PO SCH (23:28)
[2018-04-30] MEDS: diazePAM 5 MG TABLET PO PRN ×3 (02:47→13:56)
[2018-04-30] MEDS: CLARITHROMYCIN 250 MG TABLET PO SCH ×2 (10:12→21:47)
[2018-04-30] MEDS: METHADONE HCL 5 MG TABLET (FOR DETOX USE ONLY) PO SCH (10:13)
[2018-04-30] MEDS: diazePAM 5 MG TABLET PO SCH ×2 (10:13→21:48)
[2018-04-30] MEDS: PRENATAL VITAMINS W/ FOLIC ACID TABLET (FP) PO SCH (10:13)
--- NOTE | 2018-04-30 11:33 | PN ---
S CIWA - CIWA Score Nausea/Vomitin-No Nausea/No Vomiting Muscle Tremors: 3 Anxiety: 2 Agitation: 1-Slight > Activity Paroxysmal Sweats: 1-Minimal Palms Moist Orientation: 1-Uncertain about Date Tacttile Disturbances: 0-None Auditory Disturbances: 0-None Visual Disturbances: 0-None Headache: 0-None Present CIWA-Ar Total Score: 8 BHS COWS - Scale Resting Pulse: 0= TN 80 or Below Sweatin= Chills/Flushing Restless Observation: 0= Sits Still Pupil Size: 0= Normal to Room Light Bone or Joint Aches: 1= Mild Discomfort Runny Nose/ Eye Tearin= Nasal Congestion GI Upset > 30mins: 0= None Tremor Observation of Outstretched Hands: 1= Tremor [place], Not Seen Yawning Observation: 0= None Anxiety or Irritability: 1=Feels Anxious/Irritable Goose Flesh Skin: 0=Smooth Skin COWS Score: 5 BHS Progress Note (SOAP) Subjective: patient presents insomnia to psychiatrist see order seroquel tremor sweating body ache anxiety Objective: 04/30/18 11:32 Vital Signs Temperature 97.4 F L 04/30/18 09:57 Pulse Rate 107 H 04/30/18 09:57 Respiratory Rate 20 04/30/18 09:57 Blood Pressure 110/71 04/30/18 09:57 O2 Sat by Pulse Oximetry (%) Laboratory Last Values WBC 5.2 K/mm3 (4.0-10.0) 04/28/18 07:50 RBC 5.11 M/mm3 (4.00-5.60) 04/28/18 07:50 Hgb 13.5 GM/dL (11.7-16.9) 04/28/18 07:50 Hct 40.5 % (35.4-49) 04/28/18 07:50 MCV 79.4 fl (80-96) L 04/28/18 07:50 MCH 26.5 pg (25.7-33.7) 04/28/18 07:50 MCHC 33.4 g/dl (32.0-35.9) 04/28/18 07:50 RDW 19.1 % (11.9-15.9) H 04/28/18 07:50 Plt Count 217 K/MM3 (134-434) 04/28/18 07:50 MPV 8.1 fl (7.5-11.1) 04/28/18 07:50 Sodium 138 mmol/L (136-145) 04/28/18 07:50 Potassium 4.0 mmol/L (3.5-5.1) 04/28/18 07:50 Chloride 102 mmol/L (98-107) 04/28/18 07:50 Carbon Dioxide 32 mmol/L (21-32) 04/28/18 07:50 Anion Gap 4 MMOL/L (8-16) L 04/28/18 07:50 BUN 14 mg/dL (7-18) 04/28/18 07:50 Creatinine 0.9 mg/dL (0.55-1.3) 04/28/18 07:50 Creat Clearance w eGFR > 60 (>60) 04/28/18 07:50 Random Glucose 84 mg/dL (74-106) 04/28/18 07:50 Calcium 8.2 mg/dL (8.5-10.1) L 04/28/18 07:50 Total Bilirubin 1.0 mg/dL (0.2-1) 04/28/18 07:50 AST 41 U/L (15-37) H 04/28/18 07:50 ALT 107 U/L (13-61) H 04/28/18 07:50 Alkaline Phosphatase 85 U/L (45-117) 04/28/18 07:50 Total Protein 6.6 g/dl (6.4-8.2) 04/28/18 07:50 Albumin 3.3 g/dl (3.4-5.0) L 04/28/18 07:50 RPR Titer Nonreactive (NONREACTIVE) 04/28/18 07:50 lab noted Assessment: 04/30/18 11:33 benzo and opiate withdrawal sx Plan: continue detox
[2018-04-30] MEDS: hydrOXYzine PAMOATE 50 MG CAPSULE (FP) PO PRN (21:47)
[2018-04-30] MEDS: QUEtiapine FUMARATE 25 MG TABLET (FP) PO SCH (21:47)
[2018-04-30] MEDS: THIAMINE HCL 100 MG TABLET (FP) PO SCH (21:47)
[2018-05-01] MEDS: hydrOXYzine PAMOATE 50 MG CAPSULE (FP) PO PRN ×2 (02:25→22:23)
[2018-05-01] MEDS ORDERED: diazePAM 5 MG TABLET PO SCH (10:00)
[2018-05-01] MEDS ORDERED: METHADONE HCL 10 MG TABLET (FOR DETOX USE ONLY) PO SCH (10:00)
[2018-05-01] MEDS: PRENATAL VITAMINS W/ FOLIC ACID TABLET (FP) PO SCH (10:09)
[2018-05-01] MEDS: CLARITHROMYCIN 250 MG TABLET PO SCH (10:09)
--- NOTE | 2018-05-01 10:35 | DS ---
[facility] Detox Discharge Summary Admission Date: 04/27/18 - Physical Exam Results Vital Signs: Vital Signs Temperature 97.1 F L 05/01/18 09:13 Pulse Rate 95 H 05/01/18 09:13 Respiratory Rate 18 05/01/18 09:13 Blood Pressure 125/77 05/01/18 09:13 O2 Sat by Pulse Oximetry (%) - Medication Discharge Medications: Ambulatory Orders Quetiapine Fumarate [Seroquel -] 50 mg PO HS 04/14/18 Clarithromycin [Biaxin -] 250 mg PO BID #10 tablet 05/01/18 Naloxone HCl [Narcan] 4 mg NS ASDIR PRN #1 spray 05/01/18
--- NOTE | 2018-05-01 10:36 | PN ---
[facility] CIWA - CIWA Score Nausea/Vomitin-No Nausea/No Vomiting Muscle Tremors: 1-None Visible, but [place] Anxiety: 1-Mildly Anxious Agitation: 1-Slight > Activity Paroxysmal Sweats: 1-Minimal Palms Moist Orientation: 0-Oriented Tacttile Disturbances: 0-None Auditory Disturbances: 0-None Visual Disturbances: 0-None Headache: 1-Very Mild CIWA-Ar Total Score: 5 S COWS - Scale Resting Pulse: 1= MD 81-100 Sweatin= Chills/Flushing Restless Observation: 0= Sits Still Pupil Size: 0= Normal to Room Light Bone or Joint Aches: 1= Mild Discomfort Runny Nose/ Eye Tearin= None GI Upset > 30mins: 0= None Tremor Observation of Outstretched Hands: 1= Tremor [place], Not Seen Yawning Observation: 0= None Anxiety or Irritability: 1=Feels Anxious/Irritable Goose Flesh Skin: 0=Smooth Skin COWS Score: 5 S Progress Note (SOAP) Subjective: feeling better less tremor mild sweating but anxious about discharged back to the community otherwise patient reported that he is doing well Objective: 05/01/18 10:38 Vital Signs Temperature 97.1 F L 05/01/18 09:13 Pulse Rate 95 H 05/01/18 09:13 Respiratory Rate 18 05/01/18 09:13 Blood Pressure 125/77 05/01/18 09:13 O2 Sat by Pulse Oximetry (%) Laboratory Last Values WBC 5.2 K/mm3 (4.0-10.0) 04/28/18 07:50 RBC 5.11 M/mm3 (4.00-5.60) 04/28/18 07:50 Hgb 13.5 GM/dL (11.7-16.9) 04/28/18 07:50 Hct 40.5 % (35.4-49) 04/28/18 07:50 MCV 79.4 fl (80-96) L 04/28/18 07:50 MCH 26.5 pg (25.7-33.7) 04/28/18 07:50 MCHC 33.4 g/dl (32.0-35.9) 04/28/18 07:50 RDW 19.1 % (11.9-15.9) H 04/28/18 07:50 Plt Count 217 K/MM3 (134-434) 04/28/18 07:50 MPV 8.1 fl (7.5-11.1) 04/28/18 07:50 Sodium 138 mmol/L (136-145) 04/28/18 07:50 Potassium 4.0 mmol/L (3.5-5.1) 04/28/18 07:50 Chloride 102 mmol/L (98-107) 04/28/18 07:50 Carbon Dioxide 32 mmol/L (21-32) 04/28/18 07:50 Anion Gap 4 MMOL/L (8-16) L 04/28/18 07:50 BUN 14 mg/dL (7-18) 04/28/18 07:50 Creatinine 0.9 mg/dL (0.55-1.3) 04/28/18 07:50 Creat Clearance w eGFR > 60 (>60) 04/28/18 07:50 Random Glucose 84 mg/dL (74-106) 04/28/18 07:50 Calcium 8.2 mg/dL (8.5-10.1) L 04/28/18 07:50 Total Bilirubin 1.0 mg/dL (0.2-1) 04/28/18 07:50 AST 41 U/L (15-37) H 04/28/18 07:50 ALT 107 U/L (13-61) H 04/28/18 07:50 Alkaline Phosphatase 85 U/L (45-117) 04/28/18 07:50 Total Protein 6.6 g/dl (6.4-8.2) 04/28/18 07:50 Albumin 3.3 g/dl (3.4-5.0) L 04/28/18 07:50 RPR Titer Nonreactive (NONREACTIVE) 04/28/18 07:50 lab noted Assessment: 05/01/18 10:39 mild benzo and opiate withdrawal sx Plan: continue detox
[2018-05-01] MEDS ORDERED: QUEtiapine FUMARATE 50 MG TABLET PO SCH (22:00)
[2018-05-01] MEDS: THIAMINE HCL 100 MG TABLET (FP) PO SCH (22:22)
[2018-05-02] MEDS: hydrOXYzine PAMOATE 50 MG CAPSULE (FP) PO PRN (05:21)
[2018-05-02] MEDS ORDERED: METHADONE HCL 5 MG TABLET (FOR DETOX USE ONLY) PO SCH (06:00)
[2018-05-02 09:14] VITALS: BP 105/74; PULSE 107; TEMP 98.5
--- NOTE | 2018-05-02 10:25 | DS ---
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 pharmacy - Physical Exam Results Vital Signs: Vital Signs Temperature 98.5 F 05/02/18 09:14 Pulse Rate 107 H 05/02/18 09:14 Respiratory Rate 16 05/02/18 09:14 Blood Pressure 105/74 05/02/18 09:14 O2 Sat by Pulse Oximetry (%) Pertinent Admission Physical Exam Findings: benzo and opiate withdrawal sx Laboratory Last Values WBC 5.2 K/mm3 (4.0-10.0) 04/28/18 07:50 RBC 5.11 M/mm3 (4.00-5.60) 04/28/18 07:50 Hgb 13.5 GM/dL (11.7-16.9) 04/28/18 07:50 Hct 40.5 % (35.4-49) 04/28/18 07:50 MCV 79.4 fl (80-96) L 04/28/18 07:50 MCH 26.5 pg (25.7-33.7) 04/28/18 07:50 MCHC 33.4 g/dl (32.0-35.9) 04/28/18 07:50 RDW 19.1 % (11.9-15.9) H 04/28/18 07:50 Plt Count 217 K/MM3 (134-434) 04/28/18 07:50 MPV 8.1 fl (7.5-11.1) 04/28/18 07:50 Sodium 138 mmol/L (136-145) 04/28/18 07:50 Potassium 4.0 mmol/L (3.5-5.1) 04/28/18 07:50 Chloride 102 mmol/L (98-107) 04/28/18 07:50 Carbon Dioxide 32 mmol/L (21-32) 04/28/18 07:50 Anion Gap 4 MMOL/L (8-16) L 04/28/18 07:50 BUN 14 mg/dL (7-18) 04/28/18 07:50 Creatinine 0.9 mg/dL (0.55-1.3) 04/28/18 07:50 Creat Clearance w eGFR > 60 (>60) 04/28/18 07:50 Random Glucose 84 mg/dL (74-106) 04/28/18 07:50 Calcium 8.2 mg/dL (8.5-10.1) L 04/28/18 07:50 Total Bilirubin 1.0 mg/dL (0.2-1) 04/28/18 07:50 AST 41 U/L (15-37) H 04/28/18 07:50 ALT 107 U/L (13-61) H 04/28/18 07:50 Alkaline Phosphatase 85 U/L (45-117) 04/28/18 07:50 Total Protein 6.6 g/dl (6.4-8.2) 04/28/18 07:50 Albumin 3.3 g/dl (3.4-5.0) L 04/28/18 07:50 RPR Titer Nonreactive (NONREACTIVE) 04/28/18 07:50 lab noted - Treatment Hospital Course: Detox Protocol Followed, Detoxed Safely, Responded well, Discharged Condition Good, Rehab Referral Accepted Patient has Accepted a Re[facility] Referral to: [facility] - Medication Discharge Medications: Ambulatory Orders Quetiapine Fumarate [Seroquel -] 50 mg PO HS 04/14/18 Clarithromycin [Biaxin -] 250 mg PO BID #10 tablet 05/01/18 Naloxone HCl [Narcan] 4 mg NS ASDIR PRN #1 spray 05/01/18 - Diagnosis (1) Opioid dependence with withdrawal Current Visit: Yes Status: Acute (2) Sedative hypnotic or anxiolytic dependence Current Visit: Yes Status: Acute (3) Nicotine dependence Current Visit: Yes Status: Acute Qualifiers: Nicotine product type: cigarettes Substance use status: in withdrawal Qualified Code(s): F17.213 - Nicotine dependence, cigarettes, with withdrawal - AMA Did Patient Leave Against Medical Advice: No
[2018-05-02] MEDS: PRENATAL VITAMINS W/ FOLIC ACID TABLET (FP) PO SCH (10:27)
== END 2018-05-02 11:05 | disposition home or self-care (01) | DRG 773 ==
LOC: YASAS 16:01 → Y3N 19:37
PROVIDERS: ADMIT Surgery; ATTEND Surgery
PROC: HZ2ZZZZ Detoxification Services for Substance Abuse Treatment (ICD-10-PCS; principal; 2018-04-27)
DX: F11.23 Opioid dependence with withdrawal (principal); F13.230 Sedative, hypnotic or anxiolytic dependence with withdrawal, uncomplicated; F17.213 Nicotine dependence, cigarettes, with withdrawal; J02.9 Acute pharyngitis, unspecified; G47.00 Insomnia, unspecified; Z88.0 Allergy status to penicillin
CPT/HCPCS: 36415; 80053; 85027; 86593

== ENCOUNTER 2019-09-03 18:17 | Inpatient (IN) | payer OTHER ==
--- NOTE | 2019-09-03 19:50 | BHS.RME ---
Substance Use & Tx History - Substance Use History Alcohol Substance amount: 1/4 Frequency of use: Daily Substance route: Oral Heroin Substance amount: 15-20 b Frequency of use: Daily Substance route: Inhalation (ex: sniffing or snorting) Benzodiazepines Substance amount: 4-7 mg Frequency of use: Daily Substance route: Oral - Last Treatment Date of last treatment: 08/08/2019 Where was last treatment: Detox Physical/Psych/Mental Status - Behavior Eye Contact: Normal - Cooperativeness Cooperativeness: Cooperative - Thinking Thought Processes: Logical - Physical Health Problems Is patient presently having any pain?: No Does patient presently have any injuries (include location): Yes (right wrist ) Does patient currently have a fever: No COWS - Scale Resting Pulse: 1= [place] 81-100 Sweatin= Chills/Flushing Restless Observation: 1= Difficult to Sit Still Pupil Size: 0= Normal to Room Light Bone or Joint Aches: 2= Severe Diffuse Aches Runny Nose/ Eye Tearin= Runny Nose/Eyes GI Upset > 30mins: 1= Stomach Cramp Tremor Observation: 0= None Yawning Observation: 0= None Anxiety or Irritability: 2=Irritable/Anxious Goose Flesh Skin: 0=Smooth Skin COWS Score: 10 CIWA Nausea/Vomitin-Mild Nausea/No Vomiting Muscle Tremors: None Anxiety: 2 Agitation: 1-Slight > Activity Paroxysmal Sweats: 2 Orientation: 1-Uncertain about Date Tacttile Disturbances: 2-Mild Itch/Numbness/Burn (h/o neck/ back surgery) Auditory Disturbances: 0-None Visual Disturbances: 2-Mild Sensitivity Headache: 0-None Present CIWA-Ar Total Score: 11
--- NOTE | 2019-09-03 19:50 | HP ---
"COWS - Scale Resting Pulse: 1= SC 81-100 Sweatin= Chills/Flushing Restless Observation: 1= Difficult to Sit Still Pupil Size: 0= Normal to Room Light Bone or Joint Aches: 2= Severe Diffuse Aches Runny Nose/ Eye Tearin= Runny Nose/Eyes GI Upset > 30mins: 1= Stomach Cramp Tremor Observation: 0= None Yawning Observation: 0= None Anxiety or Irritability: 2=Irritable/Anxious Goose Flesh Skin: 0=Smooth Skin COWS Score: 10 CIWA Score Nausea/Vomitin-Mild Nausea/No Vomiting Muscle Tremors: None Anxiety: 2 Agitation: 1-Slight > Activity Paroxysmal Sweats: 2 Orientation: 1-Uncertain about Date Tacttile Disturbances: 2-Mild Itch/Numbness/Burn (h/o neck/ back surgery) Auditory Disturbances: 0-None Visual Disturbances: 2-Mild Sensitivity Headache: 0-None Present CIWA-Ar Total Score: 11 - Admission Criteria OASAS Guidelines: Admission for Medically Managed Detox: Requires at least one of the followin. CIWA greater than 12 2. Seizures within the past 24 hours 3. Delirium tremens within the past 24 hours 4. Hallucinations within the past 24 hours 5. Acute intervention needed for co occurring medical disorder 6. Acute intervention needed for co occurring psychiatric disorder 7. Severe withdrawal that cannot be handled at a lower level of care (continued vomiting, continued diarrhea, abnormal vital signs) requiring intravenous medication and/or fluids 8. Admitting History and Physical - Smoking History Smoking history: Current every day smoker Have you smoked in the past 12 months: Yes Aproximately how many cigarettes per day: 3 - Alcohol/Substance Use Hx Alcohol Use: Yes Admission ROS [facility] Allergies/Adverse Reactions: Allergies Allergy/AdvReac Type Severity Reaction Status Date / Time baclofen Allergy Severe Difficulty Verified 08/06/19 17:10 Breathing Penicillins Allergy unknown Verified 08/06/19 17:10 History of Present Illness: This report was requested by: Nuzhat Marcus | Reference #: [id number] Others' Prescriptions Patient Name: Tenisha Crisostomo Date: 1975 Address: [address] [place] [address] [place] [address] Sex: Male Rx Written Rx Dispensed Drug Quantity Days Supply Prescriber Name Payment Method Dispenser 09/01/2019 09/01/2019 oxycodone-acetaminophen 5-325 mg tablet 10 3 Shiraz Mcintyre) [facility] #[id number] Patient Name: Tenisha Crisostomo Date: 1975 Address: [address] [place] [address] [place] [address] Sex: Male Rx Written Rx Dispensed Drug Quantity Days Supply Prescriber Name Payment Method Dispenser 06/24/2019 06/24/2019 clonazepam 0.5 mg tablet 9 3 Victor Manuel Somers J, (N P ) [facility] #[id number] Patient Name: Tenisha Crisostomo Date: 1975 Address: [address] [place] [address] [place] [address] Sex: Male Rx Written Rx Dispensed Drug Quantity Days Supply Prescriber Name Payment Method Dispenser 10/24/2018 10/25/2018 diazepam 2 mg tablet 10 5 Bacus, Steve [facility] #[id number] 10/02/2018 10/03/2018 diazepam 2 mg tablet 15 8 Bacus, Steve [facility] #[id number] Others' Prescriptions Patient Name: Daniel Crisostomo Date: 1975 Address: [address] [place] [address] Sex: Male Rx Written Rx Dispensed Drug Quantity Days Supply Prescriber Name Payment Method Dispenser 09/01/2019 09/01/2019 diazepam 10 mg tablet 14 7 Roderick Newton MD [facility] 08/09/2019 08/12/2019 diazepam 10 mg tablet 21 7 Roderick Newton MD [facility] 08/12/2019 08/12/2019 methadone hcl 5 mg tablet 42 14 MD Osmel, [facility] 07/30/2019 07/30/2019 carisoprodol 350 mg tablet 21 7 Roderick Newton MD [facility] 07/30/2019 07/30/2019 eszopiclone 3 mg tablet 7 7 Roderick Newton MD [facility] 07/30/2019 07/30/2019 diazepam 10 mg tablet 21 7 Roderick Newton MD [facility] 43 yo male requesting detox from [facility] , heroin and xanax use , latest use yesterday - early this morning . Relapsed immediately upon d/c from this facility . [facility] [place] [facility] 09/07 . Denies seizures, blackouts, overdoses , longest sobriety 4 yrs and 3 mo prior to 3 mo ago , relapsed during COVID when meetings stopped. KAYLEIGH: 0.0 UTox: + FEN/MTD/MOP/BZO/ BAR/OXY Heroin : since age 31. Currently uses 15-20 bags daily via inhalation , denies IV , Latest use yesterday evening . Has Narcan @ home Denies MMTP admits to Methadone rx from prescriber , states he takes it for pain . Benzo (Xanax): since age 17. Currently uses 4-7 mg daily. latest used 9 pm yesterday 6 mg . Admits to Diazepam rx for insomnia . Alcohol : since age 15, 1 quart /d , latest use yesterday . tobacco : denies PMHx: chronic neck/ back pain s/p surgery 2 yrs ago 2/2 DJD /DDD , c- spine frx .w/ residual neuropathy Left LE weakness , R LE sensory deficit PSHX : r shld / r knee years ago 2/2 sports injuries. PSych Hx: Anxiety. denies SI / HI . Exam Limitations: Clinical Condition - Review of Systems Constitutional: Loss of Appetite EENT: reports: No Symptoms Reported Respiratory: reports: Cough (went to [facility] , HAD RX FOR abx) Cardiac: reports: No Symptoms Reported GI: reports: Poor Appetite, Abdominal cramping : reports: No Symptoms Reported Musculoskeletal: reports: Back Pain, Joint Pain (r wrist states s/p fall went to hospital had xr no frx given rx for Percocet), Neck Pain Integumentary: reports: See HPI Neuro: reports: Numbness (R foot , r fingers on R hand 1-3), Pre-Existing Deficit, Weakness (LLE), Unsteady Gait (2/2 LLE weakness) Endocrine: reports: No Symptoms Reported Hematology: reports: No Symptoms Reported Psychiatric: reports: Anxious, Disorientated Patient History - Patient Medical History Hx Anemia: No Hx Asthma: No Hx Chronic Obstructive Pulmonary Disease (COPD): No Hx Cancer: No Hx Cardiac Disorders: No Hx Congestive Heart Failure: No Hx Hypertension: No Hx Hypercholesterolemia: No Hx Pacemaker: No HX Cerebrovascular Accident: No Hx Seizures: No Hx Dementia: No Hx Diabetes: No Hx Gastrointestinal Disorders: No Hx Liver Disease: No Hx Genitourinary Disorders: No Hx Sexually Transmitted Disorders: No Hx Renal Disease (ESRD): No Hx Thyroid Disease: No Hx Human Immunodeficiency Virus (HIV): No Hx Hepatitis C: No Hx Depression: Yes (Not on meds) Hx Suicide Attempt: No Hx Bipolar Disorder: No Hx Schizophrenia: No - Patient Surgical History Past Surgical History: Yes Hx Neurologic Surgery: Yes (neck/back sx in July of 2017) Hx Cataract Extraction: No Hx Cardiac Surgery: No Hx Lung Surgery: Yes (tumor removal (2016)) Hx Breast Surgery: No Hx Breast Biopsy: No Hx Abdominal Surgery: No Hx Appendectomy: No Hx Cholecystectomy: No Hx Genitourinary Surgery: Yes (Varicocele) Hx Section: No Hx Orthopedic Surgery: Yes (R knee arthroscopy in 1989) Other Surgical History: Evaluation for BACK SURGERY 06/2017 Anesthesia Reaction: No - PPD History Date: 07/20/19 Results: 0 mm - Smoking Cessation Smoking history: Current every day smoker Have you smoked in the past 12 months: Yes Aproximately how many cigarettes per day: 3 Hx Chewing Tobacco Use: No Initiated information on smoking cessation: Yes 'Breaking Loose' booklet given: 09/04/19 Admission Physical Exam S - Physical General Appearance: Yes: Mild Distress, Anxious HEENTM: Yes: EOMI, Hearing grossly Normal, Normocephalic, Normal Voice, Nasal Congestion Respiratory: Yes: Chest Non-Tender, Lungs Clear, Normal Breath Sounds, No Respiratory Distress, No Accessory Muscle Use Neck: Yes: No masses,lesions,Nodules, Trachea in good position, Other (posterior midline surgical scar) Cardiology: Yes: Regular Rhythm, Regular Rate, S1, S2 Abdominal: Yes: Non Tender, Soft Back: Yes: Surgical Scar Musculoskeletal: Yes: Muscle weakness (left LE foot drop ( slight )), Other (unsteady gait) Extremities: Yes: Non-Tender, Swelling (fer hands Left > R edema, erythema reports m,artial arts injury punched glass , claims he went to the hospital and wasgiven abx tx , denies fractures, states XR was done) Neurological: Yes: Alert, Depressed Affect, Other (decreased strength) Integumentary: Yes: Warm, Track Godinez, Other (posterior thorax superficial excoriation) - Diagnostic (1) Sedative hypnotic or anxiolytic dependence Current Visit: Yes Status: Chronic (2) Alcohol dependence with withdrawal, uncomplicated Current Visit: Yes Status: Chronic (3) Opioid dependence with withdrawal Current Visit: Yes Status: Chronic Breathalyzer - Breathalyzer Breathalyzer: 0 Urine Drug Screen - Test Device Lot number: [id number] Expiration date: 11/02/20 - Control Is test valid?: Yes - Results Drug screen NEGATIVE: No Urine drug screen results: FEN-Fentanyl, MOP-Opiates, MTD-Methadone, BZO- Benzodiazepines Inpatient Rehab Admission - Rehab Decision to Admit Inpatient rehab admission?: No"
[2019-09-03] MEDS ORDERED: MAG HYDROX/AL HYDROX/SIMETH 30 ML UNIT-DOSE CUP PO PRN (20:39)
[2019-09-03] MEDS ORDERED: MELATONIN 5 MG TABLETS PO PRN (20:39)
[2019-09-03] MEDS ORDERED: MENTHOL/PHENOL 1 EACH UD MM PRN (20:39)
[2019-09-03] MEDS ORDERED: IBUPROFEN 400 MG TABLET (FP) PO PRN (20:39)
[2019-09-03] MEDS ORDERED: METHOCARBAMOL 500 MG TABLET PO PRN (20:39)
[2019-09-03] MEDS ORDERED: BISMUTH SUBSALICYLATE 524 MG/30 ML UD PO PRN (20:39)
[2019-09-03] MEDS ORDERED: ACETAMINOPHEN 325 MG TABLET (FP) PO PRN ×2 (20:39)
[2019-09-03] MEDS ORDERED: NICOTINE POLACRILEX 2 MG GUM BUC PRN (20:39)
[2019-09-03] MEDS ORDERED: MAGNESIUM CITRATE 300 ML BOTTLE PO PRN (20:39)
[2019-09-03] MEDS ORDERED: MAGNESIUM HYDROX 2400MG/30ML ORAL SUSPENSION 30 ML CUP PO PRN (20:39)
[2019-09-03] MEDS ORDERED: METHADONE HCL 10 MG TABLET (FOR DETOX USE ONLY) PO ONE (20:43)
[2019-09-03] MEDS ORDERED: chlordiazePOXIDE HCL 10 MG CAPSULE PO PRN (20:44)
[2019-09-03] MEDS: BACITRACIN 0.9 GM PACKET TP SCH (23:02)
[2019-09-03] MEDS: chlordiazePOXIDE HCL 25 MG CAPSULE PO SCH (23:02)
[2019-09-03] MEDS: GABAPENTIN 300 MG CAPSULE PO SCH (23:02)
[2019-09-03] MEDS: QUEtiapine FUMARATE 25 MG TABLET PO SCH (23:02)
[2019-09-03] MEDS: THIAMINE HCL 100 MG TABLET (FP) PO SCH (23:03)
[2019-09-03] MEDS: PATIENT'S OWN MEDICATION (NON-FORMULARY) (Cefdinir 300 MG) PO SCH (23:08)
[2019-09-04] MEDS: chlordiazePOXIDE HCL 25 MG CAPSULE PO SCH ×3 (05:28→21:53)
[2019-09-04] MEDS: GABAPENTIN 300 MG CAPSULE PO SCH ×3 (05:28→21:53)
[2019-09-04] MEDS: hydrOXYzine PAMOATE 25 MG CAPSULE (FP) PO PRN ×3 (05:30→21:53)
[2019-09-04] MEDS ORDERED: METHADONE HCL 5 MG TABLET (FOR DETOX USE ONLY) ONE (08:52)
[2019-09-04] MEDS ORDERED: METHADONE HCL 10 MG TABLET (FOR DETOX USE ONLY) ONE (08:52)
[2019-09-04] MEDS ORDERED: PATIENT'S OWN MEDICATION (NON-FORMULARY) (Omeprazole Magnesium [Omeprazole Magnesium] 40 M PO SCH (10:00)
[2019-09-04] MEDS ORDERED: METHADONE (DETOX) 20 MG, METHADONE (DETOX) 5 MG PO ONE (10:00)
[2019-09-04] MEDS ORDERED: PANTOPRAZOLE 40 MG TABLET PO SCH (10:00)
--- NOTE | 2019-09-04 10:40 | PN ---
[facility] CIWA - CIWA Score Nausea/Vomitin-Mild Nausea/No Vomiting Muscle Tremors: 3 Anxiety: 2 Agitation: 3 Paroxysmal Sweats: 3 Orientation: 0-Oriented Tacttile Disturbances: 0-None Auditory Disturbances: 0-None Visual Disturbances: 0-None Headache: 0-None Present CIWA-Ar Total Score: 12 S COWS - Scale Resting Pulse: 1= [place] 81-100 Sweatin= Chills/Flushing Restless Observation: 1= Difficult to Sit Still Pupil Size: 0= Normal to Room Light Bone or Joint Aches: 2= Severe Diffuse Aches Runny Nose/ Eye Tearin= Nasal Congestion GI Upset > 30mins: 0= None Tremor Observation of Outstretched Hands: 1= Tremor [place], Not Seen Yawning Observation: 1= 1-2x During Session Anxiety or Irritability: 2=Irritable/Anxious Goose Flesh Skin: 0=Smooth Skin COWS Score: 10 [facility] Progress Note (SOAP) Subjective: sweats shakes body aches interrupted sleep agitation restless nausea chills Objective: 09/04/19 10:41 Vital Signs Temperature 97.8 F 09/04/19 08:43 Pulse Rate 98 H 09/04/19 08:43 Respiratory Rate 18 09/04/19 08:43 Blood Pressure 111/61 09/04/19 08:43 O2 Sat by Pulse Oximetry (%) 96 09/04/19 05:53 labs pending [id number] lying in bed no acute distress Assessment: 09/04/19 10:41 withdrawals Plan: continue detox pending labs increase fluids
[2019-09-04] MEDS: PRENATAL VITAMINS W/ FOLIC ACID TABLET (FP) PO SCH (10:44)
[2019-09-04] MEDS: PATIENT'S OWN MEDICATION (NON-FORMULARY) (Cefdinir 300 MG) PO SCH ×2 (10:44→22:15)
[2019-09-04] MEDS: BACITRACIN 0.9 GM PACKET TP SCH ×2 (10:44→22:15)
[2019-09-04] MEDS ORDERED: PATIENT'S OWN MEDICATION (NON-FORMULARY) (Omeprazole 40 MG) PO ONE (10:45)
[2019-09-04] MEDS: QUEtiapine FUMARATE 25 MG TABLET PO SCH (21:53)
[2019-09-04] MEDS: THIAMINE HCL 100 MG TABLET (FP) PO SCH (21:53)
[2019-09-05] MEDS: GABAPENTIN 300 MG CAPSULE PO SCH ×3 (05:24→21:35)
[2019-09-05] MEDS: chlordiazePOXIDE 5 MG CAPSULE PO SCH ×3 (05:25→21:35)
[2019-09-05] MEDS ORDERED: METHADONE HCL 10 MG TABLET (FOR DETOX USE ONLY) PO ONE (10:00)
[2019-09-05] MEDS: BACITRACIN 0.9 GM PACKET TP SCH ×2 (10:06→21:40)
[2019-09-05] MEDS: PATIENT'S OWN MEDICATION (NON-FORMULARY) (Omeprazole 40 MG) PO SCH (10:07)
[2019-09-05] MEDS: PRENATAL VITAMINS W/ FOLIC ACID TABLET (FP) PO SCH (10:08)
[2019-09-05] MEDS: hydrOXYzine PAMOATE 25 MG CAPSULE (FP) PO PRN ×2 (10:10→22:20)
[2019-09-05] MEDS: PATIENT'S OWN MEDICATION (NON-FORMULARY) (Cefdinir 300 MG) PO SCH ×2 (10:41→22:19)
--- NOTE | 2019-09-05 11:30 | PN ---
[facility] CIWA - CIWA Score Nausea/Vomitin Muscle Tremors: 2 Anxiety: 2 Agitation: 2 Paroxysmal Sweats: No Perspiration Orientation: 0-Oriented Tacttile Disturbances: 1-Very Mild Itch/Numbness Auditory Disturbances: 0-None Visual Disturbances: 0-None Headache: 2-Mild CIWA-Ar Total Score: 11 S COWS - Scale Resting Pulse: 2= [place] 101-120 Sweatin= No chills or Flushing Restless Observation: 0= Sits Still Pupil Size: 0= Normal to Room Light Bone or Joint Aches: 1= Mild Discomfort Runny Nose/ Eye Tearin= Nasal Congestion GI Upset > 30mins: 2= Nausea/Diarrhea Tremor Observation of Outstretched Hands: 2= Slight Tremor Visible Yawning Observation: 0= None Anxiety or Irritability: 2=Irritable/Anxious Goose Flesh Skin: 0=Smooth Skin COWS Score: 10 [facility] Progress Note (SOAP) Subjective: alert,irritable,anxious,pain in the body and back,tremor,nausea Objective: 09/05/19 11:30 Vital Signs Temperature 97.5 F L 09/05/19 08:35 Pulse Rate 103 H 09/05/19 08:35 Respiratory Rate 19 09/05/19 08:35 Blood Pressure 109/60 09/05/19 08:35 O2 Sat by Pulse Oximetry (%) 99 09/05/19 06:17 Assessment: 09/05/19 11:30 withdrawal symptom Plan: continue detox methadone and librium regimen
--- NOTE | 2019-09-05 14:01 | PN ---
[facility] Progress Note Note: patient has history of back and neck surgery ambulate without difficulty ambulate on steady gait patient did not present any fall risk
[2019-09-05] MEDS: QUEtiapine FUMARATE 25 MG TABLET PO SCH (21:35)
[2019-09-05] MEDS: THIAMINE HCL 100 MG TABLET (FP) PO SCH (21:36)
[2019-09-06] MEDS ORDERED: chlordiazePOXIDE HCL 10 MG CAPSULE PO PRN
[2019-09-06] MEDS: GABAPENTIN 300 MG CAPSULE PO SCH ×3 (05:30→22:14)
[2019-09-06] MEDS: chlordiazePOXIDE HCL 10 MG CAPSULE PO SCH ×3 (05:30→22:32)
[2019-09-06] MEDS: hydrOXYzine PAMOATE 25 MG CAPSULE (FP) PO PRN ×3 (05:30→22:18)
[2019-09-06] MEDS ORDERED: METHADONE HCL 5 MG TABLET (FOR DETOX USE ONLY) ONE (09:06)
[2019-09-06] MEDS ORDERED: METHADONE HCL 10 MG TABLET (FOR DETOX USE ONLY) ONE (09:06)
[2019-09-06] MEDS ORDERED: METHADONE (DETOX) 10 MG, METHADONE (DETOX) 5 MG PO ONE (10:00)
[2019-09-06 10:08] LABS: HEMATOCRIT 35.8 % (35.4-49); HEMOGLOBIN 10.8 GM/dL (11.7-16.9); MCH 21.3 pg (25.7-33.7); MCHC 30.2 g/dl (32.0-35.9); MEAN CELL VOLUME 70.6 fl (80-96); MEAN PLT VOLUME 7.5 fl (7.5-11.1); PLATELET COUNT 507 K/MM3 (134-434); RBC 5.08 M/mm3 (4.00-5.60); RDW 18.7 % (11.9-15.9); WHITE BLOOD COUNT 6.6 K/mm3 (4.0-10.0)
[2019-09-06 10:15] LABS: BLOOD UREA NITROGEN 8.2 mg/dL (7-18); CALCIUM 7.9 mg/dL (8.5-10.1); POTASSIUM 4.5 mmol/L (3.5-5.1)
[2019-09-06] MEDS: PATIENT'S OWN MEDICATION (NON-FORMULARY) (Omeprazole 40 MG) PO SCH (10:18)
[2019-09-06 10:19] LABS: BILIRUBIN,TOTAL 0.4 mg/dL (0.2-1); TOT PROT 5.9 g/dl (6.4-8.2)
[2019-09-06] MEDS: BACITRACIN 0.9 GM PACKET TP SCH ×2 (10:19→22:32)
[2019-09-06] MEDS: PRENATAL VITAMINS W/ FOLIC ACID TABLET (FP) PO SCH (10:19)
[2019-09-06] MEDS: PATIENT'S OWN MEDICATION (NON-FORMULARY) (Cefdinir 300 MG) PO SCH ×2 (10:20→22:32)
[2019-09-06] MEDS: METHOCARBAMOL 750 MG TAB PO PRN ×2 (13:05→23:11)
--- NOTE | 2019-09-06 15:34 | PN ---
[facility] CIWA - CIWA Score Nausea/Vomitin-No Nausea/No Vomiting Muscle Tremors: None Anxiety: 3 Agitation: 3 Paroxysmal Sweats: 1-Minimal Palms Moist Orientation: 0-Oriented Tacttile Disturbances: 2-Mild Itch/Numbness/Burn Auditory Disturbances: 0-None Visual Disturbances: 0-None Headache: 0-None Present CIWA-Ar Total Score: 9 [facility] COWS - Scale Resting Pulse: 1= [place] 81-100 Sweatin= No chills or Flushing Restless Observation: 1= Difficult to Sit Still Pupil Size: 0= Normal to Room Light Bone or Joint Aches: 2= Severe Diffuse Aches Runny Nose/ Eye Tearin= None GI Upset > 30mins: 0= None Tremor Observation of Outstretched Hands: 0= None Yawning Observation: 1= 1-2x During Session Anxiety or Irritability: 2=Irritable/Anxious Goose Flesh Skin: 0=Smooth Skin COWS Score: 7 S Progress Note (SOAP) Subjective: Anxious, Restless, Body Aches. Objective: Patient A & O X 3, Observed Ambulating on Detox Unit Unassisted. In No Acute Distress. 09/06/19 15:31 Vital Signs Temperature 97.7 F 09/06/19 12:24 Pulse Rate 95 H 09/06/19 12:24 Respiratory Rate 16 09/06/19 12:24 Blood Pressure 116/73 09/06/19 12:24 O2 Sat by Pulse Oximetry (%) 97 09/06/19 12:24 Laboratory Tests 09/03/19 09/06/19 09/06/19 21:45 07:30 07:30 WBC 6.6 RBC 5.08 Hgb 10.8 L Hct 35.8 MCV 70.6 L MCH 21.3 L D MCHC 30.2 L RDW 18.7 H Plt Count 507 H D MPV 7.5 D Sodium Potassium Chloride Carbon Dioxide Anion Gap BUN Creatinine Est GFR (CKD-EPI)AfAm Est GFR (CKD-EPI)NonAf Random Glucose Calcium Total Bilirubin AST ALT Alkaline Phosphatase Total Protein Albumin Syphilis Serology Non-reactive COVID-19 ([facility]A) Not detected 09/06/19 07:30 WBC RBC Hgb Hct MCV MCH MCHC RDW Plt Count MPV Sodium 140 Potassium 4.5 Chloride 106 Carbon Dioxide 31 Anion Gap 3 L BUN 8.2 Creatinine 1.0 Est GFR (CKD-EPI)AfAm 105.62 Est GFR (CKD-EPI)NonAf 91.13 Random Glucose 79 Calcium 7.9 L Total Bilirubin 0.4 AST 86 H ALT 136 H Alkaline Phosphatase 81 Total Protein 5.9 L Albumin 2.0 L Syphilis Serology COVID-19 (STELLA) Lab Results Noted. Patient has had elevated ALT and AST Levels on previous Admissions. 09/06/19 15:32 Assessment: 09/06/19 15:33 WITHDRAWAL SYMPTOMS. ELEVATED AST LEVEL. ELEVATED ALT LEVEL. HYPOCALCEMIA. Plan: Continue Detox. Os-Ronaldo, 500 mg BID for treatment of low Ca level noted on Detox Admission labo ratory assessment.
[2019-09-06] MEDS: QUEtiapine FUMARATE 25 MG TABLET PO SCH (22:13)
[2019-09-06] MEDS: CALCIUM 500MG/VIT-D 200 UNITS COMBO TABLET (FP) PO SCH (22:14)
[2019-09-06] MEDS: THIAMINE HCL 100 MG TABLET (FP) PO SCH (22:14)
[2019-09-07] MEDS ORDERED: chlordiazePOXIDE HCL 10 MG CAPSULE PO ONE (05:00)
[2019-09-07] MEDS: GABAPENTIN 300 MG CAPSULE PO SCH ×3 (05:28→22:34)
[2019-09-07] MEDS: METHOCARBAMOL 750 MG TAB PO PRN ×2 (05:30→22:09)
[2019-09-07] MEDS ORDERED: METHADONE HCL 10 MG TABLET (FOR DETOX USE ONLY) PO ONE (10:00)
[2019-09-07] MEDS: PRENATAL VITAMINS W/ FOLIC ACID TABLET (FP) PO SCH (10:31)
[2019-09-07] MEDS: BACITRACIN 0.9 GM PACKET TP SCH ×2 (10:31→22:06)
[2019-09-07] MEDS: CALCIUM 500MG/VIT-D 200 UNITS COMBO TABLET (FP) PO SCH ×2 (10:31→22:06)
[2019-09-07] MEDS: PATIENT'S OWN MEDICATION (NON-FORMULARY) (Cefdinir 300 MG) PO SCH ×2 (10:31→22:15)
[2019-09-07] MEDS: PATIENT'S OWN MEDICATION (NON-FORMULARY) (Omeprazole 40 MG) PO SCH (10:31)
[2019-09-07] MEDS: hydrOXYzine PAMOATE 25 MG CAPSULE (FP) PO PRN (10:32)
--- NOTE | 2019-09-07 12:24 | PN ---
[facility] CIWA - CIWA Score Nausea/Vomitin-No Nausea/No Vomiting Muscle Tremors: 2 Anxiety: 3 Agitation: 3 Paroxysmal Sweats: 1-Minimal Palms Moist Orientation: 0-Oriented Tacttile Disturbances: 0-None Auditory Disturbances: 0-None Visual Disturbances: 2-Mild Sensitivity Headache: 0-None Present CIWA-Ar Total Score: 11 S COWS - Scale Resting Pulse: 1= [place] 81-100 Sweatin= Chills/Flushing Restless Observation: 1= Difficult to Sit Still Pupil Size: 0= Normal to Room Light Bone or Joint Aches: 2= Severe Diffuse Aches Runny Nose/ Eye Tearin= None GI Upset > 30mins: 0= None Tremor Observation of Outstretched Hands: 2= Slight Tremor Visible Yawning Observation: 0= None Anxiety or Irritability: 2=Irritable/Anxious Goose Flesh Skin: 0=Smooth Skin COWS Score: 9 [facility] Progress Note (SOAP) Subjective: Complaints of chills, anxiety, sweating, shakes and irritability. Objective: 09/07/19 12:22 Vital Signs 09/07/19 09/07/19 05:13 08:45 Temperature 97.7 F 98.7 F Pulse Rate 80 111 H Respiratory 16 17 Rate Blood Pressure 116/68 123/64 O2 Sat by Pulse 98 Oximetry (%) Laboratory Last Values WBC 6.6 K/mm3 (4.0-10.0) 09/06/19 07:30 RBC 5.08 M/mm3 (4.00-5.60) 09/06/19 07:30 Hgb 10.8 GM/dL (11.7-16.9) L 09/06/19 07:30 Hct 35.8 % (35.4-49) 09/06/19 07:30 MCV 70.6 fl (80-96) L 09/06/19 07:30 MCH 21.3 pg (25.7-33.7) L D 09/06/19 07:30 MCHC 30.2 g/dl (32.0-35.9) L 09/06/19 07:30 RDW 18.7 % (11.9-15.9) H 09/06/19 07:30 Plt Count 507 K/MM3 (134-434) H D 09/06/19 07:30 MPV 7.5 fl (7.5-11.1) D 09/06/19 07:30 Sodium 140 mmol/L (136-145) 09/06/19 07:30 Potassium 4.5 mmol/L (3.5-5.1) 09/06/19 07:30 Chloride 106 mmol/L (98-107) 09/06/19 07:30 Carbon Dioxide 31 mmol/L (21-32) 09/06/19 07:30 Anion Gap 3 MMOL/L (8-16) L 09/06/19 07:30 BUN 8.2 mg/dL (7-18) 09/06/19 07:30 Creatinine 1.0 mg/dL (0.55-1.3) 09/06/19 07:30 Est GFR (CKD-EPI)AfAm 105.62 09/06/19 07:30 Est GFR (CKD-EPI)NonAf 91.13 09/06/19 07:30 Random Glucose 79 mg/dL (74-106) 09/06/19 07:30 Calcium 7.9 mg/dL (8.5-10.1) L 09/06/19 07:30 Total Bilirubin 0.4 mg/dL (0.2-1) 09/06/19 07:30 AST 86 U/L (15-37) H 09/06/19 07:30 ALT 136 U/L (13-61) H 09/06/19 07:30 Alkaline Phosphatase 81 U/L (45-117) 09/06/19 07:30 Total Protein 5.9 g/dl (6.4-8.2) L 09/06/19 07:30 Albumin 2.0 g/dl (3.4-5.0) L 09/06/19 07:30 Syphilis Serology Non-reactive (NONREACTIVE) 09/06/19 07:30 COVID-19 (STELLA) Not detected (Not Detected) 09/03/19 21:45 Labs reviewed. Assessment: 09/07/19 12:23 Alert and oriented x3, in no acute respiratory distress Full ROM, skin warm to touch, ambulatory on unit without assistance. Mild withdrawal symptoms. Plan: Continue detox protocol.
[2019-09-07] MEDS: THIAMINE HCL 100 MG TABLET (FP) PO SCH (22:06)
[2019-09-07] MEDS: QUEtiapine FUMARATE 25 MG TABLET PO SCH (22:06)
[2019-09-08] MEDS: GABAPENTIN 300 MG CAPSULE PO SCH ×2 (05:39→13:06)
[2019-09-08] MEDS ORDERED: METHADONE HCL 5 MG TABLET (FOR DETOX USE ONLY) PO ONE (06:00)
[2019-09-08 09:06] VITALS: BP 114/66; PULSE 111; TEMP 96.9
--- NOTE | 2019-09-08 09:28 | PN ---
[facility] COWS - Scale Resting Pulse: 2= [place] 101-120 Sweatin= No chills or Flushing Restless Observation: 0= Sits Still Pupil Size: 0= Normal to Room Light Bone or Joint Aches: 0= None Runny Nose/ Eye Tearin= None GI Upset > 30mins: 0= None Tremor Observation of Outstretched Hands: 0= None Yawning Observation: 0= None Anxiety or Irritability: 0= None Goose Flesh Skin: 0=Smooth Skin COWS Score: 2 [facility] Progress Note (SOAP) Subjective: alert,no complaint Objective: 09/08/19 09:29 Vital Signs Temperature 96.9 F L 09/08/19 08:26 Pulse Rate 111 H 09/08/19 08:26 Respiratory Rate 18 09/08/19 08:26 Blood Pressure 114/66 09/08/19 08:26 O2 Sat by Pulse Oximetry (%) 98 09/08/19 05:27 Assessment: 09/08/19 09:30 detox completed,no withdrawal symptom Plan: stable for discharge today to go to [facility] rehab
[2019-09-08] MEDS: CALCIUM 500MG/VIT-D 200 UNITS COMBO TABLET (FP) PO SCH (10:00)
[2019-09-08] MEDS: PATIENT'S OWN MEDICATION (NON-FORMULARY) (Omeprazole 40 MG) PO SCH (10:00)
[2019-09-08] MEDS: PRENATAL VITAMINS W/ FOLIC ACID TABLET (FP) PO SCH (10:01)
[2019-09-08] MEDS: BACITRACIN 0.9 GM PACKET TP SCH (10:02)
--- NOTE | 2019-09-08 10:20 | DS ---
[facility] Detox Discharge Summary Admission Date: 09/03/19 Discharge Date: 09/08/19 - History Present History: Opioid Dependence Additional Comments: alert,oriented x 3 ambulation on the unit patient is able to ambulate without any support,no problem with gait disturbance, lung clear on auscultation bilaterally abdomen soft,no distension,no pain detox completed,no withdrawal symptom stable for discharge follow up with after care program [facility] rehab as arrangement total time of discharge 35 minutes Pertinent Past History: history of back surgery history of neck surgery history of lung surgery - Physical Exam Results Vital Signs: Vital Signs Temperature 96.9 F L 09/08/19 08:26 Pulse Rate 111 H 09/08/19 08:26 Respiratory Rate 18 09/08/19 08:26 Blood Pressure 114/66 09/08/19 08:26 O2 Sat by Pulse Oximetry (%) 98 09/08/19 05:27 Pertinent Admission Physical Exam Findings: withdrawal signs and symptom Laboratory Last Values WBC 6.6 K/mm3 (4.0-10.0) 09/06/19 07:30 RBC 5.08 M/mm3 (4.00-5.60) 09/06/19 07:30 Hgb 10.8 GM/dL (11.7-16.9) L 09/06/19 07:30 Hct 35.8 % (35.4-49) 09/06/19 07:30 MCV 70.6 fl (80-96) L 09/06/19 07:30 MCH 21.3 pg (25.7-33.7) L D 09/06/19 07:30 MCHC 30.2 g/dl (32.0-35.9) L 09/06/19 07:30 RDW 18.7 % (11.9-15.9) H 09/06/19 07:30 Plt Count 507 K/MM3 (134-434) H D 09/06/19 07:30 MPV 7.5 fl (7.5-11.1) D 09/06/19 07:30 Sodium 140 mmol/L (136-145) 09/06/19 07:30 Potassium 4.5 mmol/L (3.5-5.1) 09/06/19 07:30 Chloride 106 mmol/L (98-107) 09/06/19 07:30 Carbon Dioxide 31 mmol/L (21-32) 09/06/19 07:30 Anion Gap 3 MMOL/L (8-16) L 09/06/19 07:30 BUN 8.2 mg/dL (7-18) 09/06/19 07:30 Creatinine 1.0 mg/dL (0.55-1.3) 09/06/19 07:30 Est GFR (CKD-EPI)AfAm 105.62 09/06/19 07:30 Est GFR (CKD-EPI)NonAf 91.13 09/06/19 07:30 Random Glucose 79 mg/dL (74-106) 09/06/19 07:30 Calcium 7.9 mg/dL (8.5-10.1) L 09/06/19 07:30 Total Bilirubin 0.4 mg/dL (0.2-1) 09/06/19 07:30 AST 86 U/L (15-37) H 09/06/19 07:30 ALT 136 U/L (13-61) H 09/06/19 07:30 Alkaline Phosphatase 81 U/L (45-117) 09/06/19 07:30 Total Protein 5.9 g/dl (6.4-8.2) L 09/06/19 07:30 Albumin 2.0 g/dl (3.4-5.0) L 09/06/19 07:30 Syphilis Serology Non-reactive (NONREACTIVE) 09/06/19 07:30 COVID-19 (STELLA) Not detected (Not Detected) 09/03/19 21:45 Vital Signs Temperature 96.9 F L 09/08/19 08:26 Pulse Rate 111 H 09/08/19 08:26 Respiratory Rate 18 09/08/19 08:26 Blood Pressure 114/66 09/08/19 08:26 O2 Sat by Pulse Oximetry (%) 98 09/08/19 05:27 - Treatment Hospital Course: Detox Protocol Followed, Detoxed Safely, Responded well, Discharged Condition Good, Rehab Referral Accepted Patient has Accepted a Rehab Referral to: [facility] - Medication Discharge Medications: Ambulatory Orders Quetiapine Fumarate [Seroquel -] 50 mg PO HS 04/14/18 Esomeprazole Magnesium [Nexium 24Hr] 20 mg PO DAILY 07/18/19 Methocarbamol [Robaxin -] 750 mg PO BID 07/18/19 Cefdinir [Omnicef -] 300 mg PO Q2H 09/03/19 Omeprazole Magnesium 40 mg PO DAILY 09/03/19 - Diagnosis (1) Opioid dependence with withdrawal Current Visit: Yes Status: Chronic (2) History of neck surgery Current Visit: Yes Status: Acute (3) History of back surgery Current Visit: Yes Status: Acute (4) History of lung surgery Current Visit: Yes Status: Acute - AMA Did Patient Leave Against Medical Advice: No
--- NOTE | 2019-09-08 10:52 | PN ---
[facility] Progress Note Note: patient is on cefnir 300 mgs po q 12 hrs patient has his own medication and continue
[2019-09-08] MEDS: PATIENT'S OWN MEDICATION (NON-FORMULARY) (Cefdinir 300 MG) PO SCH (11:30)
== END 2019-09-08 13:05 | disposition other institution (70) | DRG 773 ==
LOC: YASAS 18:17 → Y6N 21:35
PROVIDERS: ADMIT Allergy & Immunology; ATTEND Allergy & Immunology
PROC: HZ2ZZZZ Detoxification Services for Substance Abuse Treatment (ICD-10-PCS; principal; 2019-09-03)
DX: F11.23 Opioid dependence with withdrawal (principal); F10.230 Alcohol dependence with withdrawal, uncomplicated; F13.20 Sedative, hypnotic or anxiolytic dependence, uncomplicated; F17.210 Nicotine dependence, cigarettes, uncomplicated; F41.9 Anxiety disorder, unspecified; E83.51 Hypocalcemia; R74.0 Nonspecific elevation of levels of transaminase and lactic acid dehydrogenase [LDH]; M62.81 Muscle weakness (generalized); R29.898 Other symptoms and signs involving the musculoskeletal system; R26.89 Other abnormalities of gait and mobility; R20.0 Anesthesia of skin; Z98.890 Other specified postprocedural states; Z88.0 Allergy status to penicillin; Z88.8 Allergy status to other drugs, medicaments and biological substances
CPT/HCPCS: 36415; 80053; 85027; 86780; U0003

== ENCOUNTER 2020-03-24 14:15 | Inpatient (IN) | payer OTHER ==
[2020-03-24 16:19] VITALS: BMI 26.5
[2020-03-24] MEDS ORDERED: ACETAMINOPHEN 325 MG TABLET (FP) PO PRN ×2 (17:29)
[2020-03-24] MEDS ORDERED: ONDANSETRON *ODT* 4 MG TABLET SL PRN (17:29)
[2020-03-24] MEDS ORDERED: IBUPROFEN 400 MG TABLET (FP) PO PRN (17:29)
[2020-03-24] MEDS ORDERED: METHOCARBAMOL 500 MG TABLET PO PRN (17:29)
[2020-03-24] MEDS ORDERED: MAGNESIUM HYDROX 2400MG/30ML ORAL SUSPENSION 30 ML CUP PO PRN (17:29)
[2020-03-24] MEDS ORDERED: MAGNESIUM CITRATE 300 ML BOTTLE PO PRN (17:29)
[2020-03-24] MEDS ORDERED: BISMUTH SUBSALICYLATE 524 MG/30 ML UD PO PRN (17:29)
[2020-03-24] MEDS ORDERED: MAG HYDROX/AL HYDROX/SIMETH 30 ML UNIT-DOSE CUP PO PRN (17:29)
[2020-03-24] MEDS ORDERED: MENTHOL/PHENOL 1 EACH UD MM PRN (17:29)
[2020-03-24] MEDS ORDERED: METHADONE HCL 10 MG TABLET (FOR DETOX USE ONLY) PO ONE ×2 (17:30→22:00)
[2020-03-24] MEDS ORDERED: cloNIDine HCL 0.1 MG TABLET PO PRN (17:30)
[2020-03-24] MEDS: PANTOPRAZOLE 20 MG TABLET PO SCH (22:34)
[2020-03-24] MEDS: THIAMINE HCL 100 MG TABLET (FP) PO SCH (22:34)
[2020-03-24] MEDS: hydrOXYzine PAMOATE 25 MG CAPSULE (FP) PO PRN (22:36)
[2020-03-24] MEDS: MELATONIN 5 MG TABLETS PO SCH (23:39)
[2020-03-25] MEDS ORDERED: METHADONE HCL 10 MG TABLET (FOR DETOX USE ONLY) ONE (09:06)
[2020-03-25] MEDS ORDERED: METHADONE HCL 5 MG TABLET (FOR DETOX USE ONLY) ONE (09:06)
[2020-03-25] MEDS ORDERED: METHADONE (DETOX) 20 MG, METHADONE (DETOX) 5 MG PO ONE (10:00)
[2020-03-25 10:29] LABS: POTASSIUM 3.8 mmol/L (3.5-5.1)
[2020-03-25 10:33] LABS: BLOOD UREA NITROGEN 9.5 mg/dL (7-18); CALCIUM 8.1 mg/dL (8.5-10.1)
[2020-03-25 10:37] LABS: CREATININE 1.1 mg/dL (0.55-1.3)
[2020-03-25 10:38] LABS: TOT PROT 6.4 g/dl (6.4-8.2)
[2020-03-25] MEDS: PANTOPRAZOLE 20 MG TABLET PO SCH (10:41)
[2020-03-25] MEDS: PRENATAL VITAMINS W/ FOLIC ACID TABLET (FP) PO SCH (10:42)
[2020-03-25] MEDS: hydrOXYzine PAMOATE 25 MG CAPSULE (FP) PO PRN (10:43)
[2020-03-25 10:47] LABS: HEMATOCRIT 38.7 % (35.4-49); HEMOGLOBIN 11.9 GM/dL (11.7-16.9); MCH 21.2 pg (25.7-33.7); MCHC 30.7 g/dl (32.0-35.9); MEAN CELL VOLUME 69.2 fl (80-96); MEAN PLT VOLUME 8.5 fl (7.5-11.1); PLATELET COUNT 328 K/MM3 (134-434); RBC 5.59 M/mm3 (4.00-5.60); RDW 21.9 % (11.9-15.9); WHITE BLOOD COUNT 5.4 K/mm3 (4.0-10.0)
[2020-03-25] MEDS ORDERED: FLUOCINONIDE 0.05% CREAM (60 GM TUBE) TP SCH (12:00)
[2020-03-25] MEDS ORDERED: diazePAM 5 MG TABLET PO PRN (17:07)
[2020-03-25] MEDS: MELATONIN 5 MG TABLETS PO SCH (22:00)
[2020-03-25] MEDS: THIAMINE HCL 100 MG TABLET (FP) PO SCH (22:00)
[2020-03-25] MEDS ORDERED: QUEtiapine FUMARATE 100 MG TABLET (FP) PO SCH (22:00)
[2020-03-26] MEDS ORDERED: METHADONE HCL 10 MG TABLET (FOR DETOX USE ONLY) PO ONE (10:00)
[2020-03-26] MEDS: PRENATAL VITAMINS W/ FOLIC ACID TABLET (FP) PO SCH (10:33)
[2020-03-26] MEDS: PANTOPRAZOLE 20 MG TABLET PO SCH (10:33)
[2020-03-26] MEDS: hydrOXYzine PAMOATE 25 MG CAPSULE (FP) PO PRN (10:37)
[2020-03-26 12:44] VITALS: BP 126/68; PULSE 92; TEMP 97.3
[2020-03-26] MEDS ORDERED: NALOXONE (NARCAN) HCL 4 MG/0.1 ML SPRAY NS PRN (13:30)
[2020-03-26 14:45] LABS: POTASSIUM 3.8 mmol/L (3.5-5.1)
[2020-03-26 14:47] LABS: INR 0.95 (0.83-1.09); PROTHROMBIN TIME (PATIENT) 11.7 SEC (9.7-13.0)
[2020-03-26 14:49] LABS: CALCIUM 8.6 mg/dL (8.5-10.1)
[2020-03-26 14:50] LABS: ALBUMIN 3.1 g/dl (3.4-5.0); BLOOD UREA NITROGEN 7.2 mg/dL (7-18)
[2020-03-26 14:53] LABS: CREATININE 1.2 mg/dL (0.55-1.3)
[2020-03-26 14:55] LABS: BILIRUBIN,TOTAL 0.8 mg/dL (0.2-1); TOT PROT 6.6 g/dl (6.4-8.2)
[2020-03-27] MEDS ORDERED: METHADONE (DETOX) 10 MG, METHADONE (DETOX) 5 MG PO ONE (10:00)
[2020-03-28] MEDS ORDERED: METHADONE HCL 10 MG TABLET (FOR DETOX USE ONLY) PO ONE (10:00)
[2020-03-29] MEDS ORDERED: METHADONE HCL 5 MG TABLET (FOR DETOX USE ONLY) PO ONE (06:00)
== END 2020-03-26 13:20 | disposition left against medical advice (07) | DRG 770 ==
LOC: YASAS 14:15 → Y6N 17:32
PROVIDERS: ADMIT Allergy & Immunology; ATTEND Allergy & Immunology
PROC: HZ2ZZZZ Detoxification Services for Substance Abuse Treatment (ICD-10-PCS; principal; 2020-03-24)
DX: F11.23 Opioid dependence with withdrawal (principal); F13.20 Sedative, hypnotic or anxiolytic dependence, uncomplicated; F10.20 Alcohol dependence, uncomplicated; F19.282 Other psychoactive substance dependence with psychoactive substance-induced sleep disorder; R41.9 Unspecified symptoms and signs involving cognitive functions and awareness; R29.898 Other symptoms and signs involving the musculoskeletal system; M54.2 Cervicalgia; M54.5 Low back pain; G89.29 Other chronic pain; Z98.1 Arthrodesis status; Z98.890 Other specified postprocedural states; Z87.891 Personal history of nicotine dependence; Z88.0 Allergy status to penicillin; Z88.8 Allergy status to other drugs, medicaments and biological substances
CPT/HCPCS: 36415; 80053; 85027; 85610; 86780; C9803; U0003

== ENCOUNTER 2020-04-30 10:06 | Inpatient (IN) | payer OTHER ==
[2020-04-30] MEDS ORDERED: MENTHOL/PHENOL 1 EACH UD MM PRN (11:31)
[2020-04-30] MEDS ORDERED: MAG HYDROX/AL HYDROX/SIMETH 30 ML UNIT-DOSE CUP PO PRN (11:31)
[2020-04-30] MEDS ORDERED: NICOTINE POLACRILEX 2 MG GUM BUC PRN (11:31)
[2020-04-30] MEDS ORDERED: BISMUTH SUBSALICYLATE 524 MG/30 ML UD PO PRN (11:31)
[2020-04-30] MEDS ORDERED: ONDANSETRON *ODT* 4 MG TABLET SL PRN (11:31)
[2020-04-30] MEDS ORDERED: ACETAMINOPHEN 325 MG TABLET (FP) PO PRN ×2 (11:31)
[2020-04-30] MEDS ORDERED: cloNIDine HCL 0.1 MG TABLET PO PRN (11:31)
[2020-04-30] MEDS ORDERED: MAGNESIUM HYDROX 2400MG/30ML ORAL SUSPENSION 30 ML CUP PO PRN (11:31)
[2020-04-30] MEDS ORDERED: MAGNESIUM CITRATE 300 ML BOTTLE PO PRN (11:31)
[2020-04-30 11:32] VITALS: BMI 29.7
[2020-04-30] MEDS ORDERED: METHADONE HCL 10 MG TABLET (FOR DETOX USE ONLY) PO ONE (12:00)
[2020-04-30] MEDS: hydrOXYzine PAMOATE 25 MG CAPSULE (FP) PO SCH ×3 (13:26→22:04)
[2020-04-30] MEDS: PRENATAL VITAMINS W/ FOLIC ACID TABLET (FP) PO SCH (13:26)
[2020-04-30] MEDS: PANTOPRAZOLE 40 MG TABLET PO SCH (13:26)
[2020-04-30] MEDS: IBUPROFEN 400 MG TABLET (FP) PO PRN ×2 (13:27→22:06)
[2020-04-30 14:04] LABS: HEMATOCRIT 38.7 % (35.4-49); HEMOGLOBIN 12.1 GM/dL (11.7-16.9); MCH 22.1 pg (25.7-33.7); MCHC 31.3 g/dl (32.0-35.9); MEAN CELL VOLUME 70.4 fl (80-96); MEAN PLT VOLUME 8.3 fl (7.5-11.1); PLATELET COUNT 323 K/MM3 (134-434); RBC 5.49 M/mm3 (4.00-5.60); RDW 20.7 % (11.9-15.9); WHITE BLOOD COUNT 7.9 K/mm3 (4.0-10.0)
[2020-04-30] MEDS: diazePAM 5 MG TABLET PO PRN (18:07)
[2020-04-30] MEDS: diazePAM 5 MG TABLET PO SCH (22:04)
[2020-04-30] MEDS: THIAMINE HCL 100 MG TABLET (FP) PO SCH (22:04)
[2020-04-30] MEDS: MELATONIN 5 MG TABLETS PO SCH (22:04)
[2020-04-30] MEDS ORDERED: QUEtiapine FUMARATE 50 MG TABLET PO ONE (23:00)
[2020-05-01] MEDS: diazePAM 5 MG TABLET PO SCH ×4 (05:23→22:21)
[2020-05-01] MEDS: hydrOXYzine PAMOATE 25 MG CAPSULE (FP) PO SCH ×5 (05:23→22:22)
[2020-05-01] MEDS: IBUPROFEN 400 MG TABLET (FP) PO PRN ×2 (05:24→22:23)
[2020-05-01] MEDS ORDERED: METHADONE HCL 10 MG TABLET (FOR DETOX USE ONLY) ONE (09:16)
[2020-05-01] MEDS ORDERED: METHADONE HCL 5 MG TABLET (FOR DETOX USE ONLY) ONE (09:16)
[2020-05-01] MEDS ORDERED: METHADONE (DETOX) 20 MG, METHADONE (DETOX) 5 MG PO ONE (10:00)
[2020-05-01] MEDS: PRENATAL VITAMINS W/ FOLIC ACID TABLET (FP) PO SCH (10:00)
[2020-05-01] MEDS: PANTOPRAZOLE 40 MG TABLET PO SCH (10:00)
[2020-05-01 11:51] LABS: POTASSIUM 4.5 mmol/L (3.5-5.1)
[2020-05-01 11:56] LABS: ALBUMIN 3.2 g/dl (3.4-5.0); BLOOD UREA NITROGEN 14.3 mg/dL (7-18); CALCIUM 8.4 mg/dL (8.5-10.1)
[2020-05-01 12:00] LABS: CREATININE 1.2 mg/dL (0.55-1.3)
[2020-05-01 12:01] LABS: BILIRUBIN,TOTAL 0.8 mg/dL (0.2-1)
[2020-05-01] MEDS: METHOCARBAMOL 500 MG TABLET PO PRN ×2 (15:35→22:23)
[2020-05-01] MEDS: THIAMINE HCL 100 MG TABLET (FP) PO SCH (22:21)
[2020-05-01] MEDS: QUEtiapine FUMARATE 100 MG TABLET (FP) PO SCH (22:22)
[2020-05-01] MEDS: MELATONIN 5 MG TABLETS PO SCH (22:22)
[2020-05-02] MEDS: diazePAM 5 MG TABLET PO SCH ×3 (05:21→22:11)
[2020-05-02] MEDS: hydrOXYzine PAMOATE 25 MG CAPSULE (FP) PO SCH ×5 (05:21→22:11)
[2020-05-02] MEDS: IBUPROFEN 400 MG TABLET (FP) PO PRN (05:22)
[2020-05-02] MEDS: METHOCARBAMOL 500 MG TABLET PO PRN ×2 (05:23→17:46)
[2020-05-02] MEDS ORDERED: METHADONE HCL 10 MG TABLET (FOR DETOX USE ONLY) PO ONE (10:00)
[2020-05-02] MEDS: PANTOPRAZOLE 40 MG TABLET PO SCH (10:16)
[2020-05-02] MEDS: PRENATAL VITAMINS W/ FOLIC ACID TABLET (FP) PO SCH (10:16)
[2020-05-02] MEDS: diazePAM 5 MG TABLET PO PRN ×2 (10:19→17:47)
[2020-05-02] MEDS ORDERED: MASKS NR ONE (17:45)
[2020-05-02] MEDS: MELATONIN 5 MG TABLETS PO SCH (22:10)
[2020-05-02] MEDS: THIAMINE HCL 100 MG TABLET (FP) PO SCH (22:10)
[2020-05-02] MEDS: QUEtiapine FUMARATE 100 MG TABLET (FP) PO SCH (22:11)
[2020-05-03] MEDS: diazePAM 5 MG TABLET PO SCH ×2 (05:21→17:50)
[2020-05-03] MEDS: hydrOXYzine PAMOATE 25 MG CAPSULE (FP) PO SCH ×5 (05:21→22:12)
[2020-05-03] MEDS: IBUPROFEN 400 MG TABLET (FP) PO PRN (05:23)
[2020-05-03] MEDS ORDERED: METHADONE HCL 10 MG TABLET (FOR DETOX USE ONLY) ONE (08:56)
[2020-05-03] MEDS ORDERED: METHADONE HCL 5 MG TABLET (FOR DETOX USE ONLY) ONE (08:57)
[2020-05-03] MEDS ORDERED: METHADONE (DETOX) 10 MG, METHADONE (DETOX) 5 MG PO ONE (10:00)
[2020-05-03] MEDS: METHOCARBAMOL 500 MG TABLET PO PRN (10:12)
[2020-05-03] MEDS: PRENATAL VITAMINS W/ FOLIC ACID TABLET (FP) PO SCH (10:12)
[2020-05-03] MEDS: PANTOPRAZOLE 40 MG TABLET PO SCH (10:12)
[2020-05-03] MEDS: diazePAM 5 MG TABLET PO PRN (10:15)
[2020-05-03] MEDS ORDERED: QUEtiapine FUMARATE 50 MG TABLET PO SCH (20:34)
[2020-05-03] MEDS: THIAMINE HCL 100 MG TABLET (FP) PO SCH (22:12)
[2020-05-03] MEDS: MELATONIN 5 MG TABLETS PO SCH (22:12)
[2020-05-04] MEDS: hydrOXYzine PAMOATE 25 MG CAPSULE (FP) PO SCH ×2 (05:07→10:06)
[2020-05-04] MEDS: METHOCARBAMOL 500 MG TABLET PO PRN (05:08)
[2020-05-04] MEDS ORDERED: diazePAM 5 MG TABLET PO ONE (06:00)
[2020-05-04 09:27] VITALS: BP 115/74; PULSE 105; TEMP 97.3
[2020-05-04] MEDS ORDERED: METHADONE HCL 10 MG TABLET (FOR DETOX USE ONLY) PO ONE (10:00)
[2020-05-04] MEDS: PANTOPRAZOLE 40 MG TABLET PO SCH (10:03)
[2020-05-04] MEDS: PRENATAL VITAMINS W/ FOLIC ACID TABLET (FP) PO SCH (10:03)
[2020-05-04] MEDS: IBUPROFEN 400 MG TABLET (FP) PO PRN (10:05)
[2020-05-05] MEDS ORDERED: METHADONE HCL 5 MG TABLET (FOR DETOX USE ONLY) PO ONE (06:00)
== END 2020-05-04 12:21 | disposition other institution (70) | DRG 773 ==
LOC: YASAS 10:06 → Y3N 11:59
PROVIDERS: ADMIT Allergy & Immunology; ATTEND Allergy & Immunology
PROC: HZ2ZZZZ Detoxification Services for Substance Abuse Treatment (ICD-10-PCS; principal; 2020-04-30)
DX: F11.23 Opioid dependence with withdrawal (principal); F10.230 Alcohol dependence with withdrawal, uncomplicated; F17.210 Nicotine dependence, cigarettes, uncomplicated; F13.20 Sedative, hypnotic or anxiolytic dependence, uncomplicated; G47.00 Insomnia, unspecified; M54.5 Low back pain; M54.6 Pain in thoracic spine; G89.29 Other chronic pain; M50.30 Other cervical disc degeneration, unspecified cervical region; Z98.890 Other specified postprocedural states; Z88.0 Allergy status to penicillin; Z88.8 Allergy status to other drugs, medicaments and biological substances
CPT/HCPCS: 36415; 80053; 85027; 86780; C9803; U0003

== ENCOUNTER 2020-07-02 16:36 | Inpatient (IN) | payer OTHER ==
[2020-07-02 17:56] VITALS: BMI 25.3
[2020-07-02] MEDS ORDERED: MAG HYDROX/AL HYDROX/SIMETH 30 ML UNIT-DOSE CUP PO PRN (19:50)
[2020-07-02] MEDS ORDERED: cloNIDine HCL 0.1 MG TABLET PO PRN (19:50)
[2020-07-02] MEDS ORDERED: diazePAM 5 MG TABLET PO PRN (19:50)
[2020-07-02] MEDS ORDERED: BISMUTH SUBSALICYLATE 524 MG/30 ML UD PO PRN (19:50)
[2020-07-02] MEDS ORDERED: MAGNESIUM HYDROX 2400MG/30ML ORAL SUSPENSION 30 ML CUP PO PRN (19:50)
[2020-07-02] MEDS ORDERED: ACETAMINOPHEN 325 MG TABLET (FP) PO PRN ×2 (19:50)
[2020-07-02] MEDS ORDERED: NICOTINE POLACRILEX 2 MG GUM BUC PRN (19:50)
[2020-07-02] MEDS ORDERED: METHOCARBAMOL 500 MG TABLET PO PRN (19:50)
[2020-07-02] MEDS ORDERED: ONDANSETRON *ODT* 4 MG TABLET SL PRN (19:50)
[2020-07-02] MEDS ORDERED: METHADONE HCL 10 MG TABLET (FOR DETOX USE ONLY) PO ONE (19:50)
[2020-07-02] MEDS ORDERED: IBUPROFEN 400 MG TABLET (FP) PO PRN (19:50)
[2020-07-02] MEDS ORDERED: MAGNESIUM CITRATE 300 ML BOTTLE PO PRN (19:50)
[2020-07-02] MEDS ORDERED: MENTHOL/PHENOL 1 EACH UD MM PRN (19:50)
[2020-07-02] MEDS ORDERED: METHADONE HCL 10 MG TABLET (FOR DETOX USE ONLY) ONE (20:39)
[2020-07-02] MEDS: diazePAM 5 MG TABLET PO SCH (22:58)
[2020-07-02] MEDS: hydrOXYzine PAMOATE 25 MG CAPSULE (FP) PO SCH (22:59)
[2020-07-02] MEDS: THIAMINE HCL 100 MG TABLET (FP) PO SCH (23:00)
[2020-07-02] MEDS: MELATONIN 5 MG TABLETS PO SCH (23:00)
[2020-07-03] MEDS: MUPIROCIN CA 2% TOPICAL CREAM 15 GM TUBE TP SCH ×4 (00:14→22:13)
[2020-07-03] MEDS: hydrOXYzine PAMOATE 25 MG CAPSULE (FP) PO SCH ×5 (05:23→22:12)
[2020-07-03] MEDS: diazePAM 5 MG TABLET PO SCH ×4 (05:23→22:13)
[2020-07-03] MEDS: CLINDAMYCIN PO SCH ×3 (07:35→22:13)
[2020-07-03] MEDS ORDERED: METHADONE HCL 5 MG TABLET (FOR DETOX USE ONLY) ONE (09:26)
[2020-07-03] MEDS ORDERED: METHADONE HCL 10 MG TABLET (FOR DETOX USE ONLY) ONE (09:26)
[2020-07-03] MEDS ORDERED: METHADONE (DETOX) 20 MG, METHADONE (DETOX) 5 MG PO ONE (10:00)
[2020-07-03] MEDS ORDERED: PRENATAL VITAMINS W/ FOLIC ACID TABLET (FP) PO SCH (10:00)
[2020-07-03] MEDS ORDERED: PATIENT'S OWN MEDICATION (NON-FORMULARY) (Omeprazole [Omeprazole] 20 MG Tablet.Dr) PO SCH (10:00)
[2020-07-03 10:05] LABS: HEMATOCRIT 37.3 % (35.4-49); HEMOGLOBIN 12.2 GM/dL (11.7-16.9); MCH 24.1 pg (25.7-33.7); MCHC 32.6 g/dl (32.0-35.9); MEAN PLT VOLUME 8.3 fl (7.5-11.1); PLATELET COUNT 223 K/MM3 (134-434); RBC 5.04 M/mm3 (4.00-5.60); WHITE BLOOD COUNT 5.6 K/mm3 (4.0-10.0)
[2020-07-03 10:14] LABS: BLOOD UREA NITROGEN 13.3 mg/dL (7-18); CALCIUM 8.2 mg/dL (8.5-10.1)
[2020-07-03 10:15] LABS: ALBUMIN 2.9 g/dl (3.4-5.0)
[2020-07-03 10:17] LABS: CREATININE 0.9 mg/dL (0.55-1.3)
[2020-07-03 10:19] LABS: BILIRUBIN,TOTAL 0.7 mg/dL (0.2-1); TOT PROT 6.5 g/dl (6.4-8.2)
[2020-07-03] MEDS ORDERED: PANTOPRAZOLE 20 MG TABLET PO SCH (13:45)
[2020-07-03] MEDS ORDERED: QUEtiapine FUMARATE 100 MG TABLET (FP) PO SCH (22:00)
[2020-07-03] MEDS: THIAMINE HCL 100 MG TABLET (FP) PO SCH (22:12)
[2020-07-03] MEDS: MELATONIN 5 MG TABLETS PO SCH (22:13)
[2020-07-04] MEDS: hydrOXYzine PAMOATE 25 MG CAPSULE (FP) PO SCH (05:40)
[2020-07-04] MEDS: CLINDAMYCIN PO SCH (05:41)
[2020-07-04] MEDS ORDERED: diazePAM 5 MG TABLET PO SCH (06:00)
[2020-07-04] MEDS: MUPIROCIN CA 2% TOPICAL CREAM 15 GM TUBE TP SCH (06:26)
[2020-07-04 06:36] VITALS: BP 99/69; PULSE 97; TEMP 97.1
[2020-07-04] MEDS ORDERED: METHADONE HCL 10 MG TABLET (FOR DETOX USE ONLY) PO ONE (10:00)
[2020-07-05] MEDS ORDERED: diazePAM 5 MG TABLET PO SCH (06:00)
[2020-07-05] MEDS ORDERED: METHADONE (DETOX) 10 MG, METHADONE (DETOX) 5 MG PO ONE (10:00)
[2020-07-06] MEDS ORDERED: diazePAM 5 MG TABLET PO ONE (06:00)
[2020-07-06] MEDS ORDERED: METHADONE HCL 10 MG TABLET (FOR DETOX USE ONLY) PO ONE (10:00)
[2020-07-07] MEDS ORDERED: METHADONE HCL 5 MG TABLET (FOR DETOX USE ONLY) PO ONE (06:00)
== END 2020-07-04 09:39 | disposition left against medical advice (07) | DRG 770 ==
LOC: YASAS 16:36 → Y6N 22:08 → Y3N 07-03 11:15 → Y6N 07-03 11:18
PROVIDERS: ADMIT Allergy & Immunology; ATTEND Allergy & Immunology
PROC: HZ2ZZZZ Detoxification Services for Substance Abuse Treatment (ICD-10-PCS; principal; 2020-07-02)
DX: F11.23 Opioid dependence with withdrawal (principal); F13.20 Sedative, hypnotic or anxiolytic dependence, uncomplicated; F17.210 Nicotine dependence, cigarettes, uncomplicated; F19.24 Other psychoactive substance dependence with psychoactive substance-induced mood disorder; G62.9 Polyneuropathy, unspecified; G47.00 Insomnia, unspecified; K21.9 Gastro-esophageal reflux disease without esophagitis; M50.30 Other cervical disc degeneration, unspecified cervical region; Z98.890 Other specified postprocedural states; Z88.0 Allergy status to penicillin; Z88.8 Allergy status to other drugs, medicaments and biological substances
CPT/HCPCS: 36415; 80053; 85027; 86780; 93005; 93010; C9803; U0003; U0005

== ENCOUNTER 2020-08-12 18:03 | Inpatient (IN) | payer OTHER ==
[2020-08-12 19:39] VITALS: BMI 25.6
[2020-08-12] MEDS ORDERED: diazePAM 5 MG TABLET PO PRN (23:38)
[2020-08-12] MEDS ORDERED: MAGNESIUM CITRATE 300 ML BOTTLE PO PRN (23:38)
[2020-08-12] MEDS ORDERED: ONDANSETRON *ODT* 4 MG TABLET SL PRN (23:38)
[2020-08-12] MEDS ORDERED: cloNIDine HCL 0.1 MG TABLET PO PRN (23:38)
[2020-08-12] MEDS ORDERED: MAG HYDROX/AL HYDROX/SIMETH 30 ML UNIT-DOSE CUP PO PRN (23:38)
[2020-08-12] MEDS ORDERED: BISMUTH SUBSALICYLATE 524 MG/30 ML PO PRN (23:38)
[2020-08-12] MEDS ORDERED: METHADONE HCL 10 MG TABLET (FOR DETOX USE ONLY) PO ONE (23:38)
[2020-08-12] MEDS ORDERED: MENTHOL/PHENOL 1 EACH UD MM PRN (23:38)
[2020-08-12] MEDS ORDERED: ACETAMINOPHEN 325 MG TABLET (FP) PO PRN ×2 (23:38)
[2020-08-12] MEDS ORDERED: MAGNESIUM HYDROX 2400MG/30ML ORAL SUSPENSION 30 ML CUP PO PRN (23:38)
[2020-08-12] MEDS ORDERED: IBUPROFEN 400 MG TABLET (FP) PO PRN (23:38)
[2020-08-13] MEDS: METHOCARBAMOL 500 MG TABLET PO PRN ×2 (03:32→10:19)
[2020-08-13] MEDS: diazePAM 5 MG TABLET PO SCH ×2 (04:13→08:43)
[2020-08-13] MEDS ORDERED: diazePAM 5 MG TABLET PO SCH (06:00)
[2020-08-13 09:02] VITALS: BP 100/60; PULSE 82; TEMP 98.3
[2020-08-13] MEDS ORDERED: METHADONE HCL 5 MG TABLET (FOR DETOX USE ONLY) ONE (09:57)
[2020-08-13] MEDS ORDERED: METHADONE HCL 10 MG TABLET (FOR DETOX USE ONLY) ONE (09:57)
[2020-08-13] MEDS ORDERED: PRENATAL VITAMINS W/ FOLIC ACID TABLET (FP) PO SCH (10:00)
[2020-08-13] MEDS ORDERED: METHADONE (DETOX) 20 MG, METHADONE (DETOX) 5 MG PO ONE (10:00)
[2020-08-13 10:27] LABS: HEMATOCRIT 37.7 % (35.4-49); HEMOGLOBIN 12.4 GM/dL (11.7-16.9); MCH 25.9 pg (25.7-33.7); MEAN CELL VOLUME 78.4 fl (80-96); MEAN PLT VOLUME 7.3 fl (7.5-11.1); PLATELET COUNT 186 K/MM3 (134-434); RBC 4.81 M/mm3 (4.00-5.60); RDW 21.9 % (11.9-15.9); WHITE BLOOD COUNT 4.9 K/mm3 (4.0-10.0)
[2020-08-13 10:39] LABS: CALCIUM 8.3 mg/dL (8.5-10.1)
[2020-08-13 10:40] LABS: BLOOD UREA NITROGEN 11.6 mg/dL (7-18)
[2020-08-13 10:43] LABS: CREATININE 0.8 mg/dL (0.55-1.3)
[2020-08-13 10:44] LABS: BILIRUBIN,TOTAL 0.6 mg/dL (0.2-1)
[2020-08-13 10:45] LABS: TOT PROT 6.5 g/dl (6.4-8.2)
[2020-08-13] MEDS ORDERED: THIAMINE HCL 100 MG TABLET (FP) PO SCH (22:00)
[2020-08-13] MEDS ORDERED: MELATONIN 5 MG TABLETS PO SCH (22:00)
[2020-08-14] MEDS ORDERED: diazePAM 5 MG TABLET PO SCH (06:00)
[2020-08-14] MEDS ORDERED: METHADONE HCL 10 MG TABLET (FOR DETOX USE ONLY) PO ONE (10:00)
[2020-08-15] MEDS ORDERED: diazePAM 5 MG TABLET PO ONE (06:00)
[2020-08-15] MEDS ORDERED: METHADONE (DETOX) 10 MG, METHADONE (DETOX) 5 MG PO ONE (10:00)
[2020-08-16] MEDS ORDERED: METHADONE HCL 10 MG TABLET (FOR DETOX USE ONLY) PO ONE (10:00)
[2020-08-17] MEDS ORDERED: METHADONE HCL 5 MG TABLET (FOR DETOX USE ONLY) PO ONE (06:00)
== END 2020-08-13 12:16 | disposition left against medical advice (07) | DRG 770 ==
LOC: YASAS 18:03 → Y3N 23:39
PROVIDERS: ADMIT Allergy & Immunology; ATTEND Allergy & Immunology
PROC: HZ2ZZZZ Detoxification Services for Substance Abuse Treatment (ICD-10-PCS; principal; 2020-08-12)
DX: F11.23 Opioid dependence with withdrawal (principal); F13.230 Sedative, hypnotic or anxiolytic dependence with withdrawal, uncomplicated; F17.210 Nicotine dependence, cigarettes, uncomplicated; F19.282 Other psychoactive substance dependence with psychoactive substance-induced sleep disorder; H91.91 Unspecified hearing loss, right ear; K21.9 Gastro-esophageal reflux disease without esophagitis; M54.6 Pain in thoracic spine; M54.5 Low back pain; G89.29 Other chronic pain; R74.01 Elevation of levels of liver transaminase levels; Z88.0 Allergy status to penicillin; Z88.8 Allergy status to other drugs, medicaments and biological substances; Z98.890 Other specified postprocedural states
CPT/HCPCS: 36415; 80053; 85027; 86780; 93005; 93010; C9803; J0735; U0003; U0005

== ENCOUNTER 2021-02-07 08:54 | Inpatient (IN) | payer OTHER ==
[2021-02-07 10:14] VITALS: BMI 28.3
[2021-02-07] MEDS ORDERED: methaDONE HCL 10 MG TABLET (FOR DETOX USE ONLY) PO ONE (10:53)
[2021-02-07] MEDS ORDERED: MENTHOL/PHENOL 1 EACH UD MM PRN (10:53)
[2021-02-07] MEDS ORDERED: ONDANSETRON *ODT* 4 MG TABLET SL PRN (10:53)
[2021-02-07] MEDS ORDERED: ACETAMINOPHEN 325 MG TABLET (FP) PO PRN ×2 (10:53)
[2021-02-07] MEDS ORDERED: MAGNESIUM HYDROX 2400MG/30ML ORAL SUSPENSION 30 ML CUP PO PRN (10:53)
[2021-02-07] MEDS ORDERED: NICOTINE 10 MG CARTRIDGE (INHALER) IH PRN (10:53)
[2021-02-07] MEDS ORDERED: MAGNESIUM CITRATE 300 ML BOTTLE PO PRN (10:53)
[2021-02-07] MEDS ORDERED: MAG HYDROX/AL HYDROX/SIMETH 30 ML UNIT-DOSE CUP PO PRN (10:53)
[2021-02-07] MEDS ORDERED: BISMUTH SUBSALICYLATE 262 MG/15 ML BTL PO PRN (10:53)
[2021-02-07] MEDS ORDERED: cloNIDine HCL 0.1 MG TABLET PO PRN (10:53)
[2021-02-07] MEDS ORDERED: IBUPROFEN 400 MG TABLET (FP) PO PRN (10:53)
[2021-02-07] MEDS ORDERED: PRENATAL VITAMINS W/ FOLIC ACID TABLET (FP) PO SCH (11:00)
[2021-02-07] MEDS: METHOCARBAMOL 500 MG TABLET PO PRN ×2 (12:02→23:02)
[2021-02-07] MEDS: diazePAM 5 MG TABLET PO PRN (12:02)
[2021-02-07 13:30] LABS: HEMATOCRIT 40.4 % (35.4-49); HEMOGLOBIN 12.8 GM/dL (11.7-16.9); MCH 23.5 pg (25.7-33.7); MCHC 31.5 g/dl (32.0-35.9); MEAN CELL VOLUME 74.5 fl (80-96); MEAN PLT VOLUME 7.5 fl (7.5-11.1); PLATELET COUNT 534 10^3/uL (134-434); RBC 5.43 M/mm3 (4.00-5.60); RDW 19.5 % (11.9-15.9); WHITE BLOOD COUNT 8.2 K/mm3 (4.0-10.0)
[2021-02-07 13:38] LABS: CALCIUM 8.9 mg/dL (8.5-10.1)
[2021-02-07 13:39] LABS: ALBUMIN 3.2 g/dl (3.4-5.0); BLOOD UREA NITROGEN 14.5 mg/dL (7-18)
[2021-02-07 13:42] LABS: CREATININE 1.4 mg/dL (0.55-1.3)
[2021-02-07 13:43] LABS: BILIRUBIN,TOTAL 0.5 mg/dL (0.2-1); TOT PROT 8.2 g/dl (6.4-8.2)
[2021-02-07] MEDS: hydrOXYzine PAMOATE 25 MG CAPSULE (FP) PO SCH ×3 (14:31→23:02)
[2021-02-07] MEDS ORDERED: QUEtiapine FUMARATE 100 MG TABLET (FP) PO PRN (14:41)
[2021-02-07] MEDS: diazePAM 5 MG TABLET PO SCH ×2 (18:11→23:02)
[2021-02-07] MEDS ORDERED: MELATONIN 5 MG TABLETS PO SCH (22:00)
[2021-02-07] MEDS ORDERED: PATIENT'S OWN MEDICATION (NON-FORMULARY) (Sulfamethoxazole/Trimethoprim [Sulfamethoxazole- PO SCH (22:00)
[2021-02-07] MEDS ORDERED: THIAMINE HCL 100 MG TABLET (FP) PO SCH (22:00)
[2021-02-08] MEDS: hydrOXYzine PAMOATE 25 MG CAPSULE (FP) PO SCH (05:55)
[2021-02-08] MEDS: diazePAM 5 MG TABLET PO SCH (05:56)
[2021-02-08] MEDS: METHOCARBAMOL 500 MG TABLET PO PRN (05:56)
[2021-02-08 07:15] VITALS: BP 125/58; PULSE 77
[2021-02-08] MEDS: diazePAM 5 MG TABLET PO PRN (08:11)
[2021-02-08 08:31] VITALS: TEMP 97.7
[2021-02-08] MEDS ORDERED: NICOTINE 7 MG/24 HOURS TOPICAL PATCH TD SCH (10:00)
[2021-02-09] MEDS ORDERED: diazePAM 5 MG TABLET PO SCH (06:00)
[2021-02-09] MEDS ORDERED: methaDONE HCL 10 MG TABLET (FOR DETOX USE ONLY) PO ONE (10:00)
[2021-02-10] MEDS ORDERED: diazePAM 5 MG TABLET PO SCH (06:00)
[2021-02-11] MEDS ORDERED: diazePAM 5 MG TABLET PO ONE (06:00)
[2021-02-11] MEDS ORDERED: methaDONE HCL 10 MG TABLET (FOR DETOX USE ONLY) PO ONE (10:00)
== END 2021-02-08 09:14 | disposition left against medical advice (07) | DRG 770 ==
LOC: YASAS 08:54 → Y6N 10:49
PROVIDERS: ADMIT Allergy & Immunology; ATTEND Allergy & Immunology
PROC: HZ2ZZZZ Detoxification Services for Substance Abuse Treatment (ICD-10-PCS; principal; 2021-02-07)
DX: F11.23 Opioid dependence with withdrawal (principal); F11.282 Opioid dependence with opioid-induced sleep disorder; F13.230 Sedative, hypnotic or anxiolytic dependence with withdrawal, uncomplicated; F19.24 Other psychoactive substance dependence with psychoactive substance-induced mood disorder; F19.282 Other psychoactive substance dependence with psychoactive substance-induced sleep disorder; K21.9 Gastro-esophageal reflux disease without esophagitis; H91.91 Unspecified hearing loss, right ear; G47.00 Insomnia, unspecified; M54.6 Pain in thoracic spine; G89.29 Other chronic pain; Z88.0 Allergy status to penicillin; Z88.1 Allergy status to other antibiotic agents
CPT/HCPCS: 36415; 80053; 85027; 86780; C9803; J0735; Q0162; U0003; U0005

== ENCOUNTER 2021-11-20 17:52 | Inpatient (IN) | payer OTHER ==
[2021-11-20 18:39] VITALS: BMI 27.3
[2021-11-20] MEDS ORDERED: MELATONIN 5 MG TABLETS PO PRN (18:52)
[2021-11-20] MEDS ORDERED: NALOXONE HCL (KLOXXADO) 8 MG SPRAY NS PRN (18:52)
[2021-11-20] MEDS ORDERED: LOPERAMIDE HCL 2 MG CAPSULE PO PRN (18:52)
[2021-11-20] MEDS ORDERED: ONDANSETRON *ODT* 4 MG TABLET SL PRN (18:52)
[2021-11-20] MEDS ORDERED: P-EPHED 60MG/TRIPROLIDI 2.5MG TABLET PO PRN (18:52)
[2021-11-20] MEDS ORDERED: BENZOCAINE/MENTHOL (CHLORASEPTIC ) LOZENGE MM PRN (18:52)
[2021-11-20] MEDS ORDERED: guaiFENesin 200 MG/10 ML 10 ML UNIT-DOSE CUPS PO PRN (18:52)
[2021-11-20] MEDS ORDERED: MAG HYDROX/AL HYDROX/SIMETH 30 ML UNIT-DOSE CUP PO PRN (18:52)
[2021-11-20] MEDS ORDERED: MAGNESIUM CITRATE 300 ML BOTTLE PO PRN (18:52)
[2021-11-20] MEDS ORDERED: MAGNESIUM HYDROX 2400MG/30ML ORAL SUSPENSION 30 ML CUP PO PRN (18:52)
[2021-11-20] MEDS ORDERED: ACETAMINOPHEN 325 MG TABLET (FP) PO PRN ×2 (18:52)
[2021-11-20] MEDS ORDERED: BISMUTH SUBSALICYLATE 524 MG/30 ML PO PRN (18:52)
[2021-11-20] MEDS ORDERED: DICYCLOMINE HCL 10 MG CAPSULE PO PRN (18:52)
[2021-11-20] MEDS ORDERED: IBUPROFEN 400 MG TABLET (FP) PO PRN (18:52)
[2021-11-20] MEDS ORDERED: methaDONE HCL 10 MG TABLET (FOR DETOX USE ONLY) PO ONE (18:55)
[2021-11-20] MEDS ORDERED: cloNIDine HCL 0.1 MG TABLET PO PRN (18:55)
[2021-11-20] MEDS ORDERED: chlordiazePOXIDE HCL 25 MG CAPSULE PO PRN (18:56)
[2021-11-20] MEDS ORDERED: QUEtiapine FUMARATE 50 MG TABLET PO ONE (22:00)
[2021-11-20] MEDS: chlordiazePOXIDE HCL 25 MG CAPSULE PO SCH (22:16)
[2021-11-20] MEDS: THIAMINE HCL 100 MG TABLET (FP) PO SCH (22:17)
[2021-11-20] MEDS: IBUPROFEN 600 MG TABLET (FP) PO PRN (23:16)
[2021-11-21] MEDS: chlordiazePOXIDE HCL 25 MG CAPSULE PO SCH ×4 (05:30→22:02)
[2021-11-21] MEDS: hydrOXYzine PAMOATE 25 MG CAPSULE (FP) PO PRN ×2 (05:31→13:58)
[2021-11-21] MEDS: PRENATAL VITAMINS W/ FOLIC ACID TABLET (FP) PO SCH (10:08)
[2021-11-21] MEDS: NICOTINE 10 MG CARTRIDGE (INHALER) IH PRN (12:01)
[2021-11-21 13:26] LABS: HEMATOCRIT 44.2 % (35.4-49); HEMOGLOBIN 14.1 GM/dL (11.7-16.9); MCH 26.2 pg (25.7-33.7); MEAN PLT VOLUME 7.9 fl (7.5-11.1); PLATELET COUNT 275 10^3/uL (134-434); RBC 5.39 M/mm3 (4.00-5.60); RDW 20.2 % (11.9-15.9); WHITE BLOOD COUNT 5.9 K/mm3 (4.0-10.0)
[2021-11-21 13:28] LABS: CALCIUM 8.1 mg/dL (8.5-10.1)
[2021-11-21 13:29] LABS: ALBUMIN 3.1 g/dl (3.4-5.0)
[2021-11-21 13:33] LABS: BILIRUBIN,TOTAL 0.6 mg/dL (0.2-1); TOT PROT 6.4 g/dl (6.4-8.2)
[2021-11-21] MEDS: METHOCARBAMOL 500 MG TABLET PO PRN (13:58)
[2021-11-21] MEDS: GABAPENTIN 300 MG CAPSULE PO SCH ×2 (13:58→22:03)
[2021-11-21] MEDS: IBUPROFEN 600 MG TABLET (FP) PO PRN (13:59)
[2021-11-21] MEDS: THIAMINE HCL 100 MG TABLET (FP) PO SCH (22:03)
[2021-11-21] MEDS: QUEtiapine FUMARATE 100 MG TABLET (FP) PO SCH (22:03)
[2021-11-22] MEDS: GABAPENTIN 300 MG CAPSULE PO SCH ×3 (05:58→22:11)
[2021-11-22] MEDS: chlordiazePOXIDE HCL 25 MG CAPSULE PO SCH ×4 (05:58→22:12)
[2021-11-22] MEDS: NICOTINE 10 MG CARTRIDGE (INHALER) IH PRN ×2 (09:11→16:19)
[2021-11-22] MEDS ORDERED: methaDONE HCL 10 MG TABLET (FOR DETOX USE ONLY) PO ONE (10:00)
[2021-11-22] MEDS: PRENATAL VITAMINS W/ FOLIC ACID TABLET (FP) PO SCH (10:16)
[2021-11-22] MEDS: hydrOXYzine PAMOATE 25 MG CAPSULE (FP) PO PRN (22:10)
[2021-11-22] MEDS: THIAMINE HCL 100 MG TABLET (FP) PO SCH (22:10)
[2021-11-22] MEDS: QUEtiapine FUMARATE 100 MG TABLET (FP) PO SCH (22:11)
[2021-11-23] MEDS ORDERED: chlordiazePOXIDE HCL 10 MG CAPSULE PO PRN
[2021-11-23] MEDS: GABAPENTIN 300 MG CAPSULE PO SCH ×4 (06:55→22:12)
[2021-11-23] MEDS: chlordiazePOXIDE HCL 10 MG CAPSULE PO SCH ×5 (06:55→22:12)
[2021-11-23] MEDS: hydrOXYzine PAMOATE 25 MG CAPSULE (FP) PO PRN (10:33)
[2021-11-23] MEDS: PRENATAL VITAMINS W/ FOLIC ACID TABLET (FP) PO SCH (10:34)
[2021-11-23] MEDS: METHOCARBAMOL 500 MG TABLET PO PRN ×2 (10:34→22:14)
[2021-11-23] MEDS: NICOTINE 10 MG CARTRIDGE (INHALER) IH PRN ×2 (15:43→22:16)
[2021-11-23] MEDS: QUEtiapine FUMARATE 100 MG TABLET (FP) PO SCH (22:12)
[2021-11-23] MEDS: THIAMINE HCL 100 MG TABLET (FP) PO SCH (22:12)
[2021-11-23] MEDS: IBUPROFEN 600 MG TABLET (FP) PO PRN (22:13)
[2021-11-24] MEDS ORDERED: chlordiazePOXIDE HCL 10 MG CAPSULE PO SCH (05:00)
[2021-11-24] MEDS: GABAPENTIN 300 MG CAPSULE PO SCH (07:58)
[2021-11-24] MEDS: PRENATAL VITAMINS W/ FOLIC ACID TABLET (FP) PO SCH (09:08)
[2021-11-24 09:10] VITALS: BP 99/58; PULSE 86; RESP 19; TEMP 98
[2021-11-24] MEDS ORDERED: methaDONE HCL 10 MG TABLET (FOR DETOX USE ONLY) PO ONE (10:00)
[2021-11-25] MEDS ORDERED: chlordiazePOXIDE HCL 10 MG CAPSULE PO ONE (05:00)
== END 2021-11-24 09:44 | disposition home or self-care (01) | DRG 773 ==
LOC: YASAS 17:52 → Y3N 19:02
PROVIDERS: ADMIT Allergy & Immunology; ATTEND Surgery
PROC: HZ2ZZZZ Detoxification Services for Substance Abuse Treatment (ICD-10-PCS; principal; 2021-11-20)
DX: F11.23 Opioid dependence with withdrawal (principal); F13.230 Sedative, hypnotic or anxiolytic dependence with withdrawal, uncomplicated; F10.230 Alcohol dependence with withdrawal, uncomplicated; F17.210 Nicotine dependence, cigarettes, uncomplicated; G62.9 Polyneuropathy, unspecified; G47.00 Insomnia, unspecified; K21.9 Gastro-esophageal reflux disease without esophagitis; H91.91 Unspecified hearing loss, right ear; M54.2 Cervicalgia; Z88.0 Allergy status to penicillin; Z88.8 Allergy status to other drugs, medicaments and biological substances
CPT/HCPCS: 36415; 80053; 85027; 86780; C9803-CS; U0003; U0005

== ENCOUNTER 2021-11-26 17:56 | Inpatient (IN) | payer OTHER ==
[2021-11-26 18:44] VITALS: RESP 18; BMI 27.7
[2021-11-26] MEDS ORDERED: MAGNESIUM HYDROX 2400MG/30ML ORAL SUSPENSION 30 ML CUP PO PRN (20:02)
[2021-11-26] MEDS ORDERED: ACETAMINOPHEN 325 MG TABLET (FP) PO PRN (20:02)
[2021-11-26] MEDS ORDERED: IBUPROFEN 400 MG TABLET (FP) PO PRN (20:02)
[2021-11-26] MEDS ORDERED: NALOXONE HCL (KLOXXADO) 8 MG SPRAY NS PRN (20:02)
[2021-11-26] MEDS ORDERED: guaiFENesin 200 MG/10 ML 10 ML UNIT-DOSE CUPS PO PRN (20:02)
[2021-11-26] MEDS ORDERED: MAGNESIUM CITRATE 300 ML BOTTLE PO PRN (20:02)
[2021-11-26] MEDS ORDERED: MAG HYDROX/AL HYDROX/SIMETH 30 ML UNIT-DOSE CUP PO PRN (20:02)
[2021-11-26] MEDS ORDERED: LOPERAMIDE HCL 2 MG CAPSULE PO PRN (20:02)
[2021-11-26] MEDS ORDERED: P-EPHED 60MG/TRIPROLIDI 2.5MG TABLET PO PRN (20:02)
[2021-11-26] MEDS ORDERED: QUEtiapine FUMARATE 50 MG TABLET PO ONE (20:09)
[2021-11-26] MEDS ORDERED: MELATONIN 5 MG TABLETS PO SCH (22:00)
[2021-11-26] MEDS: THIAMINE HCL 100 MG TABLET (FP) PO SCH (23:18)
[2021-11-26] MEDS: hydrOXYzine PAMOATE 25 MG CAPSULE (FP) PO SCH (23:18)
[2021-11-26] MEDS: GABAPENTIN 300 MG CAPSULE PO SCH (23:18)
[2021-11-27] MEDS: NICOTINE 10 MG CARTRIDGE (INHALER) IH PRN (06:42)
[2021-11-27] MEDS: hydrOXYzine PAMOATE 25 MG CAPSULE (FP) PO SCH ×5 (06:42→21:28)
[2021-11-27] MEDS: GABAPENTIN 300 MG CAPSULE PO SCH ×3 (06:42→21:28)
[2021-11-27] MEDS: PRENATAL VITAMINS W/ FOLIC ACID TABLET (FP) PO SCH (09:50)
[2021-11-27 14:30] LABS: URINE APPEARANCE CLEAR; URINE BILIRUBIN NEGATIVE (NEGATIVE); URINE COLOR YELLOW; URINE GLUCOSE (UA) NEGATIVE (NEGATIVE); URINE KETONE NEGATIVE (NEGATIVE); URINE LEUK ESTERASE NEGATIVE (NEGATIVE); URINE NITRITE NEGATIVE (NEGATIVE); URINE PROTEIN NEGATIVE (NEGATIVE)
[2021-11-27] MEDS: THIAMINE HCL 100 MG TABLET (FP) PO SCH (21:28)
[2021-11-27] MEDS ORDERED: QUEtiapine FUMARATE 100 MG TABLET (FP) PO PRN (22:00)
[2021-11-28] MEDS: GABAPENTIN 300 MG CAPSULE PO SCH (06:48)
[2021-11-28] MEDS: hydrOXYzine PAMOATE 25 MG CAPSULE (FP) PO SCH ×2 (06:48→09:50)
[2021-11-28 07:19] VITALS: BP 116/68; PULSE 91; TEMP 97.8
[2021-11-28] MEDS: NICOTINE 10 MG CARTRIDGE (INHALER) IH PRN (08:44)
[2021-11-28] MEDS: PRENATAL VITAMINS W/ FOLIC ACID TABLET (FP) PO SCH (09:50)
== END 2021-11-28 10:45 | disposition left against medical advice (07) | DRG 770 ==
LOC: YASAS 17:56 → Y3W 22:31
PROVIDERS: ADMIT Psychiatry & Neurology Pain Medicine; ATTEND Allergy & Immunology
PROC: HZ42ZZZ Group Counseling for Substance Abuse Treatment, Cognitive-Behavioral (ICD-10-PCS; principal; 2021-11-26)
DX: F11.20 Opioid dependence, uncomplicated (principal); F13.20 Sedative, hypnotic or anxiolytic dependence, uncomplicated; F12.20 Cannabis dependence, uncomplicated; F17.210 Nicotine dependence, cigarettes, uncomplicated; F19.282 Other psychoactive substance dependence with psychoactive substance-induced sleep disorder; F19.24 Other psychoactive substance dependence with psychoactive substance-induced mood disorder; G62.9 Polyneuropathy, unspecified; H91.92 Unspecified hearing loss, left ear; K21.9 Gastro-esophageal reflux disease without esophagitis; Z98.890 Other specified postprocedural states; Z59.00 Homelessness unspecified
CPT/HCPCS: 36415; 81003; 86803; 87522; C9803-CS; U0003; U0005